=== PATIENT | male | born 1960 | race American Indian/Alaskan Native ===

== ENCOUNTER 2018-11-10 09:43 | Emergency (ER) | payer MEDICARE ==
[2018-11-10 09:54] VITALS: BP 142/90
--- NOTE | 2018-11-10 11:30 | Emergency Department Report ---
Addendum entered and electronically signed by BÁRBARA JENSEN FNP 11/10/18 16:39: Start Benzonatate 100 mg by mouth 3 times a day when necessary. Original Note: Minor Respiratory - HPI Chief Complaint: Upper Respiratory Infection Stated Complaint: COUGH/SOB/DIZZY Duration: 2 weeks Pain Location: Nose, Chest Severity: moderate Minor Respiratory: Yes Rhinorrhea, Yes Able to Tolerate Fluids, Yes Cough, Yes Sick Contacts, Yes Chest Pain, Yes Shortness of Breath, No Sore Throat, No Ear Pain, No Hemoptysis, No Fever Other History: This is a 58-year-old -English male who presents with cough, chest discomfort and shortness of breath for 2 weeks. Patient states he was seen by [facility] doctor who started him on Tessalon Perles which is not improving cough. He also complains of chills and hot flashes. He reports cough is productive with greenish mucus. [facility]. Patient states he had pneumonia Rach was seen at urgent care. He is concerned it possibly answers time. Patient denies fever, nausea or vomiting, myalgias, or abdominal pain. ED Review of Systems ROS: Stated complaint: COUGH/SOB/DIZZY Other details as noted in HPI Constitutional: chills. denies: fever ENT: congestion. denies: ear pain, throat pain, dental pain, hearing loss, epistaxis Respiratory: cough, shortness of breath, SOB with exertion. denies: wheezing Cardiovascular: chest pain (chest discomfort with cough). denies: palpitations Gastrointestinal: denies: abdominal pain, nausea, diarrhea Musculoskeletal: denies: myalgia Neurological: denies: headache, weakness, paresthesias Psychiatric: denies: anxiety, depression ED Past Medical Hx - Past Medical History Previous Medical History?: Yes Hx Hypertension: Yes Hx Heart Attack/AMI: Yes (x2) Hx Diabetes: Yes Hx Arthritis: Yes Hx Psychiatric Treatment: Yes (Poehler, schizophrenia, alcohol dependence) Hx Asthma: Yes Additional medical history: hernia - Surgical History Past Surgical History?: Yes Additional Surgical History: left hip replacement, bilateral knee replacement. left testicle removed. HERNIA REPAIR X 4. BILATERAL ROTATOR CUFF REPAIR, - Social History Smoking Status: Light Tobacco Smoker Substance Use Type: None - Medications Home Medications: Home Medications Medication Instructions Recorded Confirmed Last Taken Type ARIPiprazole [Abilify TAB] 15 mg PO DAILY 09/07/15 11/20/15 09/07/15 History Citalopram [celeXA] 40 mg PO QDAY 09/07/15 11/20/15 09/07/15 History Cyclobenzaprine [Flexeril] 10 mg PO TID PRN 09/07/15 11/20/15 09/07/[address] [Voltaren Dr] 75 mg PO QDAY 09/07/15 11/20/15 09/07/15 History Hydroxyzine HCl [hydrOXYzine] 50 mg PO QDAY 09/07/15 11/20/15 09/07/15 History Ipratropium (Nf) [Atrovent HFA 2 puff IH Q6HR PRN 09/07/15 11/20/15 09/07/15 History 17MCG/PUFF] Meloxicam 15 mg PO QDAY 09/07/15 11/20/15 09/07/15 History Mirtazapine [Remeron] 15 mg PO QDAY 09/07/15 11/20/15 09/07/15 History Ranitidine HCl [Zantac 150 MG TAB] 150 mg PO QDAY 09/07/15 11/20/15 09/07/15 History cloNIDine [Catapres] 0.2 mg PO BID 09/07/15 11/20/15 09/07/15 History metFORMIN [Glucophage] 500 mg PO BID 09/07/15 11/20/15 09/07/15 History methOCARBAMOL [Robaxin TAB] 500 mg PO QID 09/07/15 11/20/15 09/07/15 History traZODone [Desyrel] 150 mg PO QHS 09/07/15 11/20/15 09/07/15 History Aspirin [Aspirin BABY CHEW TAB] 81 mg PO QDAY 11/20/15 11/20/15 Unknown History Carisoprodol [Soma] 350 mg PO TID 11/20/15 11/20/15 Unknown History Esomeprazole Magnesium [NexIUM] 40 mg PO BID 11/20/15 11/20/15 Unknown History Ibuprofen [Motrin] 800 mg PO Q8HR PRN 11/20/15 11/20/15 Unknown History Nitroglycerin [Nitrostat] 0.4 mg SL Q5M PRN 11/20/15 11/20/15 Unknown History Oxycodone HCl/Acetaminophen 1 each PO Q6HR PRN 11/20/15 11/20/15 Unknown History [Percocet 10/325 mg] Promethazine [Phenergan TAB] 25 mg PO Q8HR PRN 11/20/15 11/20/15 Unknown History Quetiapine Fumarate [SEROquel XR] 400 mg PO QHS 11/20/15 11/20/15 Unknown History Zolpidem [Ambien] 10 mg PO BID 11/20/15 11/20/15 Unknown History diphenhydrAMINE [Benadryl CAP] 50 mg PO Q8HR PRN 11/20/15 11/20/15 Unknown History Lisinopril [Zestril TAB] 5 mg PO QDAY #30 tablet 11/22/15 Unknown Rx Azithromycin 250 mg PO DAILY #6 tablet 11/10/18 Unknown Rx predniSONE [Deltasone] 40 mg PO QDAY 4 Days #8 tab 11/10/18 Unknown Rx Minor Respiratory Exam - Exam General: Vital signs noted. No distress. Alert and acting appropriately. HEENT: Yes Pharyngeal Erythema (erythematous posterior pharynx, uvula midline), Yes Moist Mucous Membranes, Yes Rhinorrhea (turbinates are congested with clear discharge), No Pharyngeal Exudates, No Conjuctival Injection, No Frontal Tenderness, No Maxillary Tenderness Ear: Neither TM Bulge, Neither TM Erythema, Neither EAC Pain, Neither EAC Discharge Neck: Yes Supple, No Adenopathy Lungs: Yes Ronchi, No Good Air Exchange, No Wheezes, No Stridor, No Cough, No Labored Respirations, No Retractions, No Use of Accessory Muscles, No Other Abnormal Lung Sounds Heart: Yes Regular, No Murmur Abdomen: Yes Normal Bowel Sounds, No Tenderness, No Peritoneal Signs Skin: No Rash, No Edema Neurologic: Alert and oriented, no deficits. Musculoskeletal: Unremarkable. ED Course Vital Signs 11/10/18 09:47 Temperature 97.7 F Pulse Rate 110 H Respiratory 20 Rate Blood Pressure 142/90 O2 Sat by Pulse 98 Oximetry Vital Signs 11/10/18 11/10/18 09:47 13:33 Temperature 97.7 F Pulse Rate 110 H 92 H Respiratory 20 17 Rate Blood Pressure 142/90 O2 Sat by Pulse 98 99 Oximetry ED Medical Decision Making - Radiology Data Radiology results: report reviewed CHEST XRAY, 2 VIEWS: History: Cough. Findings: There is mild diffuse interstitial coarsening. The lungs are hyperexpanded but clear. No infiltrate, pleural fluid or pneumothorax is detected. The cardiac silhouette and pulmonary vasculature are within normal limits for technique. The bony thorax is unremarkable. IMPRESSION: Moderate to severe COPD. No acute cardiopulmonary process. - Medical Decision Making 58 y.o. female that presents with SOB, cough, and chest tightness for 2 weeks. History of arthritis, asthma, diabetes, hypertension, tobaco abuse, alcohol dependence, and schizophrenia. Patient examined by me and in no distress. Vitals stable. Chest x-ray obtained and dictated by radiologist. Moderate to severe COPD. No acute cardiopulmonary process. Given duoneb treatment and prednisone 60 mg po once. Start azithromycin and prednisone taper. Discharged home stable. Follow up with her primary care provider. Critical care attestation.: If time is entered above; I have spent that time in minutes in the direct care of this critically ill patient, excluding procedure time. ED Disposition Clinical Impression: Tobacco abuse, COPD exacerbation Disposition: DC-01 TO HOME OR SELFCARE Is pt being admited?: No Does the pt Need Aspirin: No Condition: Stable Instructions: Chronic Obstructive Pulmonary Disease (ED) Additional Instructions: It is important to use inhaler as prescribed. Complete full course of prednisone steroids and antibiotics as prescribed. Follow up with Primary Care Provider in 24-72 hours. Prescriptions: Azithromycin 250 mg PO DAILY #6 tablet predniSONE [Deltasone] 40 mg PO QDAY 4 Days #8 tab Referrals: [facility] [Outside] - 3-5 Days [facility] [Outside] - 3-5 Days [facility] [Outside] - 3-5 Days CARIDAD PULIDO MD [Staff Physician] - 3-5 Days Time of Disposition: 13:53
[2018-11-10] MEDS ORDERED: IBUPROFEN PO ONE (11:31)
--- NOTE | 2018-11-10 11:42 | XRay Report ---
CHEST XRAY, 2 VIEWS: History: Cough. Findings: There is mild diffuse interstitial coarsening. The lungs are hyperexpanded but clear. No infiltrate, pleural fluid or pneumothorax is detected. The cardiac silhouette and pulmonary vasculature are within normal limits for technique. The bony thorax is unremarkable. IMPRESSION: Moderate to severe COPD. No acute cardiopulmonary process.
[2018-11-10] MEDS ORDERED: DUONEB *Not for PRN Use IH ONE (12:28)
[2018-11-10] MEDS ORDERED: DELTASONE PO ONE (13:50)
== END 2018-11-10 14:15 | disposition home or self-care (01) ==
LOC: ED 09:43
DX: J44.1 Chronic obstructive pulmonary disease with (acute) exacerbation (principal); E11.9 Type 2 diabetes mellitus without complications; F20.9 Schizophrenia, unspecified; M19.90 Unspecified osteoarthritis, unspecified site; I11.0 Hypertensive heart disease with heart failure; F17.200 Nicotine dependence, unspecified, uncomplicated; Z96.642 Presence of left artificial hip joint; Z96.653 Presence of artificial knee joint, bilateral; Z79.82 Long term (current) use of aspirin; Z88.8 Allergy status to other drugs, medicaments and biological substances; Z88.5 Allergy status to narcotic agent
CPT/HCPCS: 71046; 93005; 93010; 94640; 99284; J7512

== ENCOUNTER 2019-01-30 13:50 | Emergency (ER) | payer MEDICARE | END 2019-01-30 16:09 | LOC: ED 13:50 | DX: M25.552 Pain in left hip (principal); Z53.21 Procedure and treatment not carried out due to patient leaving prior to being seen by health care provider ==

== ENCOUNTER 2019-02-06 18:15 | Emergency (ER) | payer MEDICARE ==
--- NOTE | 2019-02-06 18:24 | Emergency Department Report ---
Chief Complaint: Nausea/Vomiting/Diarrhea Stated Complaint: COUGH/VOMIT Time Seen by Provider: 02/06/19 18:21 - HPI History of Present Illness: CO SOB AND COUGH COPD AND ACTIVE SMOKER PMHL SIDED CP WORSE WITH COUGH DM COPD TOBACCO USE CAD NO FEVER TACHYPNEA IN TRIAGE TO EKG MSE COMPLETED MSE screening note: Focused history and physical exam performed. Due to findings the following was ordered: ED Disposition for MSE Condition: Stable
[2019-02-06 18:59] LABS: Basophils % (Auto) 0.7 % (0.0-1.8); Eosinophils # (Auto) 0.3 K/mm3 (0.0-0.4); Eosinophils % (Auto) 4.4 % (0.0-4.3); Hematocrit 35.5 % (35.5-45.6); Lymphocytes # (Auto) 2.3 K/mm3 (1.2-5.4); Lymphocytes % (Auto) 33.3 % (13.4-35.0); Mean Corpuscular HGB Conc 34 % (32-34); Mean Corpuscular Volume 100 fl (84-94); Monocytes # (Auto) 0.5 K/mm3 (0.0-0.8); Monocytes % (Auto) 7.5 % (0.0-7.3); Platelet Count 438 K/mm3 (140-440); Red Blood Count 3.54 M/mm3 (3.65-5.03); Red Cell Distribution Width 16.9 % (13.2-15.2)
[2019-02-06 19:08] LABS: Alanine Aminotransferase 11 units/L (7-56); Albumin 3.9 g/dL (3.9-5); BUN/Creatinine Ratio 16; Blood Urea Nitrogen 13 mg/dL (9-20); Calcium 8.5 mg/dL (8.4-10.2); Hemolysis Index 3
[2019-02-06 19:14] VITALS: BP 164/101
--- NOTE | 2019-02-06 21:23 | Emergency Department Report ---
ED General Adult HPI - General Chief complaint: Nausea/Vomiting/Diarrhea Stated complaint: COUGH/VOMIT Time Seen by Provider: 02/06/19 18:21 Source: patient Mode of arrival: Ambulatory Limitations: No Limitations - History of Present Illness Initial comments: 58-year-old -[place] male with a past medical history of COPD, schizophrenia, alcohol dependent comes in complaining of cough and vomiting since last night. He also complains of left-sided abdominal pain worse with coughing. Complains of dizziness and lightheadedness with coughing. -: days(s) (1) Location: abdomen Severity scale (0 -10): 5 Quality: aching Consistency: intermittent Worsens with: other (cough) Associated Symptoms: cough, nausea/vomiting, shortness of breath. denies: fever/chills - Related Data Home Medications Medication Instructions Recorded Confirmed Last Taken ARIPiprazole [Abilify TAB] 15 mg PO DAILY 09/07/15 11/20/15 09/07/15 Citalopram [celeXA] 40 mg PO QDAY 09/07/15 11/20/15 09/07/15 Cyclobenzaprine [Flexeril] 10 mg PO TID PRN 09/07/15 11/20/15 09/07/[address] [Voltaren Dr] 75 mg PO QDAY 09/07/15 11/20/15 09/07/15 Hydroxyzine HCl [hydrOXYzine] 50 mg PO QDAY 09/07/15 11/20/15 09/07/15 Ipratropium (Nf) [Atrovent HFA 2 puff IH Q6HR PRN 09/07/15 11/20/15 09/07/15 17MCG/PUFF] Meloxicam 15 mg PO QDAY 09/07/15 11/20/15 09/07/15 Mirtazapine [Remeron] 15 mg PO QDAY 09/07/15 11/20/15 09/07/15 Ranitidine HCl [Zantac 150 MG TAB] 150 mg PO QDAY 09/07/15 11/20/15 09/07/15 cloNIDine [Catapres] 0.2 mg PO BID 09/07/15 11/20/15 09/07/15 metFORMIN [Glucophage] 500 mg PO BID 09/07/15 11/20/15 09/07/15 methOCARBAMOL [Robaxin TAB] 500 mg PO QID 09/07/15 11/20/15 09/07/15 traZODone [Desyrel] 150 mg PO QHS 09/07/15 11/20/15 09/07/15 Aspirin [Aspirin BABY CHEW TAB] 81 mg PO QDAY 11/20/15 11/20/15 Unknown Carisoprodol [Soma] 350 mg PO TID 11/20/15 11/20/15 Unknown Esomeprazole Magnesium [NexIUM] 40 mg PO BID 11/20/15 11/20/15 Unknown Ibuprofen [Motrin] 800 mg PO Q8HR PRN 11/20/15 11/20/15 Unknown Nitroglycerin [Nitrostat] 0.4 mg SL Q5M PRN 11/20/15 11/20/15 Unknown Oxycodone HCl/Acetaminophen 1 each PO Q6HR PRN 11/20/15 11/20/15 Unknown [Percocet 10/325 mg] Promethazine [Phenergan TAB] 25 mg PO Q8HR PRN 11/20/15 11/20/15 Unknown Quetiapine Fumarate [SEROquel XR] 400 mg PO QHS 11/20/15 11/20/15 Unknown Zolpidem [Ambien] 10 mg PO BID 11/20/15 11/20/15 Unknown diphenhydrAMINE [Benadryl CAP] 50 mg PO Q8HR PRN 11/20/15 11/20/15 Unknown Previous Rx's Medication Instructions Recorded Last Taken Type Lisinopril [Zestril TAB] 5 mg PO QDAY #30 tablet 11/22/15 Unknown Rx Azithromycin 250 mg PO DAILY #6 tablet 11/10/18 Unknown Rx predniSONE [Deltasone] 40 mg PO QDAY 4 Days #8 tab 11/10/18 Unknown Rx Albuterol Sulfate [Ventolin HFA] 2 puff IH Q4H PRN #1 hfa.aer.ad 02/06/19 Unknown Rx Benzonatate [Tessalon Perles] 100 mg PO Q8HR PRN #30 capsule 02/06/19 Unknown Rx predniSONE [Prednisone] 10 mg PO QDAY #1 tab.ds.pk 02/06/19 Unknown Rx Allergies Allergy/AdvReac Type Severity Reaction Status Date / Time prochlorperazine edisylate Allergy Swelling Verified 02/06/19 19:14 [From Compazine] prochlorperazine maleate Allergy Swelling Verified 02/06/19 19:14 [From Compazine] tramadol Allergy Swelling Verified 02/06/19 19:14 ED Review of Systems ROS: Stated complaint: COUGH/VOMIT Other details as noted in HPI Comment: All other systems reviewed and negative Constitutional: denies: chills, fever Eyes: denies: eye pain, eye discharge, vision change ENT: denies: ear pain, throat pain Respiratory: cough, shortness of breath Cardiovascular: chest pain. denies: palpitations Endocrine: no symptoms reported Gastrointestinal: vomiting Genitourinary: denies: urgency, dysuria Musculoskeletal: denies: back pain, joint swelling, arthralgia Skin: denies: rash, lesions Neurological: denies: headache, weakness, paresthesias Psychiatric: denies: anxiety, depression Hematological/Lymphatic: denies: easy bleeding, easy bruising ED Past Medical Hx - Past Medical History Previous Medical History?: Yes Hx Hypertension: Yes Hx Heart Attack/AMI: Yes (x2) Hx Diabetes: Yes Hx Arthritis: Yes Hx Psychiatric Treatment: Yes (Poehler, schizophrenia, alcohol dependence) Hx Asthma: Yes Additional medical history: hernia - Surgical History Past Surgical History?: Yes Additional Surgical History: left hip replacement, bilateral knee replacement. left testicle removed. HERNIA REPAIR X 4. BILATERAL ROTATOR CUFF REPAIR, - Social History Smoking Status: Current Every Day Smoker - Medications Home Medications: Home Medications Medication Instructions Recorded Confirmed Last Taken Type ARIPiprazole [Abilify TAB] 15 mg PO DAILY 09/07/15 11/20/15 09/07/15 History Citalopram [celeXA] 40 mg PO QDAY 09/07/15 11/20/15 09/07/15 History Cyclobenzaprine [Flexeril] 10 mg PO TID PRN 09/07/15 11/20/15 09/07/[address] [Voltaren Dr] 75 mg PO QDAY 09/07/15 11/20/15 09/07/15 History Hydroxyzine HCl [hydrOXYzine] 50 mg PO QDAY 09/07/15 11/20/15 09/07/15 History Ipratropium (Nf) [Atrovent HFA 2 puff IH Q6HR PRN 09/07/15 11/20/15 09/07/15 History 17MCG/PUFF] Meloxicam 15 mg PO QDAY 09/07/15 11/20/15 09/07/15 History Mirtazapine [Remeron] 15 mg PO QDAY 09/07/15 11/20/15 09/07/15 History Ranitidine HCl [Zantac 150 MG TAB] 150 mg PO QDAY 09/07/15 11/20/15 09/07/15 History cloNIDine [Catapres] 0.2 mg PO BID 09/07/15 11/20/15 09/07/15 History metFORMIN [Glucophage] 500 mg PO BID 09/07/15 11/20/15 09/07/15 History methOCARBAMOL [Robaxin TAB] 500 mg PO QID 09/07/15 11/20/15 09/07/15 History traZODone [Desyrel] 150 mg PO QHS 09/07/15 11/20/15 09/07/15 History Aspirin [Aspirin BABY CHEW TAB] 81 mg PO QDAY 11/20/15 11/20/15 Unknown History Carisoprodol [Soma] 350 mg PO TID 11/20/15 11/20/15 Unknown History Esomeprazole Magnesium [NexIUM] 40 mg PO BID 11/20/15 11/20/15 Unknown History Ibuprofen [Motrin] 800 mg PO Q8HR PRN 11/20/15 11/20/15 Unknown History Nitroglycerin [Nitrostat] 0.4 mg SL Q5M PRN 11/20/15 11/20/15 Unknown History Oxycodone HCl/Acetaminophen 1 each PO Q6HR PRN 11/20/15 11/20/15 Unknown History [Percocet 10/325 mg] Promethazine [Phenergan TAB] 25 mg PO Q8HR PRN 11/20/15 11/20/15 Unknown History Quetiapine Fumarate [SEROquel XR] 400 mg PO QHS 11/20/15 11/20/15 Unknown History Zolpidem [Ambien] 10 mg PO BID 11/20/15 11/20/15 Unknown History diphenhydrAMINE [Benadryl CAP] 50 mg PO Q8HR PRN 11/20/15 11/20/15 Unknown H istory Lisinopril [Zestril TAB] 5 mg PO QDAY #30 tablet 11/22/15 Unknown Rx Azithromycin 250 mg PO DAILY #6 tablet 11/10/18 Unknown Rx predniSONE [Deltasone] 40 mg PO QDAY 4 Days #8 tab 11/10/18 Unknown Rx Albuterol Sulfate [Ventolin HFA] 2 puff IH Q4H PRN #1 hfa.aer.ad 02/06/19 Unknown Rx Benzonatate [Tessalon Perles] 100 mg PO Q8HR PRN #30 capsule 02/06/19 Unknown Rx predniSONE [Prednisone] 10 mg PO QDAY #1 tab.ds.pk 02/06/19 Unknown Rx ED Physical Exam - General Limitations: No Limitations General appearance: alert, in no apparent distress - Head Head exam: Present: atraumatic, normocephalic - Eye Eye exam: Present: normal appearance, EOMI - ENT ENT exam: Present: mucous membranes moist - Neck Neck exam: Present: normal inspection - Respiratory Respiratory exam: Present: normal lung sounds bilaterally. Absent: respiratory distress - Cardiovascular Cardiovascular Exam: Present: regular rate, normal rhythm. Absent: systolic murmur, diastolic murmur, rubs, gallop - GI/Abdominal GI/Abdominal exam: Present: soft, normal bowel sounds. Absent: distended, tenderness - Extremities Exam Extremities exam: Present: normal inspection, full ROM - Back Exam Back exam: Present: normal inspection - Neurological Exam Neurological exam: Present: alert, oriented X3, normal gait - Psychiatric Psychiatric exam: Present: normal affect, normal mood - Skin Skin exam: Present: warm, dry, intact, normal color. Absent: rash ED Course Vital Signs 02/06/19 19:13 Temperature 97.4 F L Pulse Rate 99 H Respiratory 20 Rate Blood Pressure 164/101 O2 Sat by Pulse 100 Oximetry ED Medical Decision Making - Lab Data Result diagrams: 02/06/19 18:35 02/06/19 18:35 - Radiology Data Radiology results: report reviewed Ordering Physician: DANYEL TRIPLETT Date of Service: 02/06/19 Procedure(s): XR chest routine 2V Accession Number(s): [id number] cc: DANYEL TRIPLETT Fluoro Time In Minutes: PROCEDURE: XR CHEST ROUTINE 2V TECHNIQUE: PA and lateral chest radiographs were obtained. HISTORY: Dyspnea COMPARISONS: None. FINDINGS: Heart: Normal. Mediastinum/Vessels: Normal. Lungs/Pleural space: There is moderate COPD and mild fibrosis. There are no acute infiltrates. There is no pleural effusion or pneumothorax.. Bony thorax: No acute osseous abnormality. IMPRESSION: Normal examination. This document is electronically signed by Nancy Villa MD., February 06 2019 09:33:47 PM ET Transcribed By: CO Dictated By: NANCY VILLA MD Electronically Authenticated By: NANCY VILLA MD Signed Date/Time: 02/06/192134 DD/ 39 TD/TT: 02/06/191839 Critical care attestation.: If time is entered above; I have spent that time in minutes in the direct care of this critically ill patient, excluding procedure time. ED Disposition Clinical Impression: Cough Disposition: DC-01 TO HOME OR SELFCARE Is pt being admited?: No Does the pt Need Aspirin: No Condition: Stable Instructions: Chronic Cough (ED) Additional Instructions: Please take medication as prescribed. Follow up with her primary care provider this symptoms persist or gets worse. Prescriptions: predniSONE [Prednisone] 10 mg PO QDAY #1 tab.ds.pk Benzonatate [Tessalon Perles] 100 mg PO Q8HR PRN #30 capsule PRN Reason: Cough Albuterol Sulfate [Ventolin HFA] 2 puff IH Q4H PRN #1 hfa.aer.ad PRN Reason: Shortness Of Breath Referrals: YAZMIN YATES MD [Primary Care Provider] - 3-5 Days
[2019-02-06] MEDS ORDERED: TESSALON PERLES PO ONE (21:34)
--- NOTE | 2019-02-06 21:35 | XRay Report ---
PROCEDURE: XR CHEST ROUTINE 2V TECHNIQUE: PA and lateral chest radiographs were obtained. HISTORY: Dyspnea COMPARISONS: None. FINDINGS: Heart: Normal. Mediastinum/Vessels: Normal. Lungs/Pleural space: There is moderate COPD and mild fibrosis. There are no acute infiltrates. There is no pleural effusion or pneumothorax.. Bony thorax: No acute osseous abnormality. IMPRESSION: Normal examination. This document is electronically signed by Smooth Mcgowan MD., February 06 2019 09:33:47 PM ET
[2019-02-06] MEDS ORDERED: DELTASONE PO ONE (21:56)
== END 2019-02-06 22:58 | disposition home or self-care (01) ==
LOC: ED 18:15
DX: R05 Cough (principal); R11.10 Vomiting, unspecified; R10.9 Unspecified abdominal pain; R42 Dizziness and giddiness; I10 Essential (primary) hypertension; I25.2 Old myocardial infarction; E11.9 Type 2 diabetes mellitus without complications; J44.9 Chronic obstructive pulmonary disease, unspecified; M19.90 Unspecified osteoarthritis, unspecified site; F17.200 Nicotine dependence, unspecified, uncomplicated; F20.9 Schizophrenia, unspecified; Z88.6 Allergy status to analgesic agent; Z88.8 Allergy status to other drugs, medicaments and biological substances; Z79.84 Long term (current) use of oral hypoglycemic drugs
CPT/HCPCS: 36415; 71046; 80053; 84484; 85025; 93005; 93010; 99284; J7512

== ENCOUNTER 2019-02-15 17:39 | Emergency (ER) | payer MEDICARE ==
--- NOTE | 2019-02-15 18:33 | Emergency Department Report ---
Chief Complaint: Upper Respiratory Infection Stated Complaint: FLU LIKE SYMPTOMS Time Seen by Provider: 02/15/19 18:30 - HPI History of Present Illness: pt presents for cough that began 2 weeks having emesis, states that "zofran is not working" states only "phenergan works" chest discomfort with coughing hx of COPD subjective fever (+) rhinorrhea, congestion pt has a PCP and has not seen then (+) smoker MSE screening note: Focused history performed. Due to findings the following was ordered: CXR, labs ED Disposition for MSE Condition: Stable
[2019-02-15 19:10] LABS: Basophils # (Auto) 0.1 K/mm3 (0.0-0.1); Basophils % (Auto) 0.7 % (0.0-1.8); Eosinophils # (Auto) 0.3 K/mm3 (0.0-0.4); Eosinophils % (Auto) 2.9 % (0.0-4.3); Hematocrit 35.1 % (35.5-45.6); Hemoglobin 12.1 gm/dl (11.8-15.2); Lymphocytes # (Auto) 2.5 K/mm3 (1.2-5.4); Lymphocytes % (Auto) 26.1 % (13.4-35.0); Mean Corpuscular HGB Conc 34 % (32-34); Mean Corpuscular Volume 98 fl (84-94); Monocytes # (Auto) 0.7 K/mm3 (0.0-0.8); Monocytes % (Auto) 7.4 % (0.0-7.3); Platelet Count 362 K/mm3 (140-440); Red Blood Count 3.58 M/mm3 (3.65-5.03); Red Cell Distribution Width 17.1 % (13.2-15.2)
--- NOTE | 2019-02-15 19:31 | XRay Report ---
PROCEDURE: XR CHEST ROUTINE 2V TECHNIQUE: Chest 2 views HISTORY: cough COMPARISONS: Comparison is February 06, 2019 FINDINGS: Cardiac and mediastinal contours are unremarkable. Lungs are hyperinflated with flattening of the paulo phragm. Mild scarring noted at the left base. No confluent pulmonary infiltrates are identified. No p leural fluid collection seen. IMPRESSION: Findings suggestive of underlying COPD No acute change identified. This document is electronically signed by Andry Waller MD., February 15 2019 07:29:58 PM ET
[2019-02-15 19:36] LABS: BUN/Creatinine Ratio 18; Blood Urea Nitrogen 14 mg/dL (9-20); Calcium 8.7 mg/dL (8.4-10.2); Hemolysis Index 4
--- NOTE | 2019-02-15 19:51 | Emergency Department Report ---
Minor Respiratory - HPI Chief Complaint: Upper Respiratory Infection Stated Complaint: FLU LIKE SYMPTOMS Time Seen by Provider: 02/15/19 18:30 Duration: 2 weeks Minor Respiratory: Yes Rhinorrhea, Yes Cough, No Sore Throat, No Able to Tolerate Fluids, No Ear Pain, No Sick Contacts, No Hemoptysis, No Chest Pain, No Shortness of Breath Other History: 58-year-old -[place] male with a past medical history of COPD, schizophrenia, alcohol dependent comes in complaining of cough and vomiting since 02/06/19. Patient reports that he is coughing and vomiting which is is chronic. Patient reports that the Zofran does not help but the promethazine does. Patient denies any fever chills. Patient reports it is completed his Tessalon Perles and prednisone but still is having coughing at night. ED Review of Systems ROS: Stated complaint: FLU LIKE SYMPTOMS Other details as noted in HPI Comment: All other systems reviewed and negative Constitutional: no symptoms reported Eyes: denies: eye pain, eye discharge, vision change ENT: denies: ear pain, throat pain Respiratory: cough Cardiovascular: denies: chest pain, palpitations Endocrine: no symptoms reported Gastrointestinal: vomiting Genitourinary: denies: urgency, dysuria Musculoskeletal: denies: back pain, joint swelling, arthralgia Skin: denies: rash, lesions Neurological: denies: headache, weakness, paresthesias Psychiatric: denies: anxiety, depression Hematological/Lymphatic: denies: easy bleeding, easy bruising ED Past Medical Hx - Past Medical History Hx Hypertension: Yes Hx Heart Attack/AMI: Yes (x2) Hx Diabetes: Yes Hx Arthritis: Yes Hx Psychiatric Treatment: Yes (Poehler, schizophrenia, alcohol dependence) Hx Asthma: Yes Additional medical history: hernia - Surgical History Additional Surgical History: left hip replacement, bilateral knee replacement. left testicle removed. HERNIA REPAIR X 4. BILATERAL ROTATOR CUFF REPAIR, - Social History Smoking Status: Current Every Day Smoker Substance Use Type: None - Medications Home Medications: Home Medications Medication Instructions Recorded Confirmed Last Taken Type ARIPiprazole [Abilify TAB] 15 mg PO DAILY 09/07/15 11/20/15 09/07/15 History Citalopram [celeXA] 40 mg PO QDAY 09/07/15 11/20/15 09/07/15 History Cyclobenzaprine [Flexeril] 10 mg PO TID PRN 09/07/15 11/20/15 09/07/[address] [Voltaren Dr] 75 mg PO QDAY 09/07/15 11/20/15 09/07/15 History Hydroxyzine HCl [hydrOXYzine] 50 mg PO QDAY 09/07/15 11/20/15 09/07/15 History Ipratropium (Nf) [Atrovent HFA 2 puff IH Q6HR PRN 09/07/15 11/20/15 09/07/15 History 17MCG/PUFF] Meloxicam 15 mg PO QDAY 09/07/15 11/20/15 09/07/15 History Mirtazapine [Remeron] 15 mg PO QDAY 09/07/15 11/20/15 09/07/15 History Ranitidine HCl [Zantac 150 MG TAB] 150 mg PO QDAY 09/07/15 11/20/15 09/07/15 History cloNIDine [Catapres] 0.2 mg PO BID 09/07/15 11/20/15 09/07/15 History metFORMIN [Glucophage] 500 mg PO BID 09/07/15 11/20/15 09/07/15 History methOCARBAMOL [Robaxin TAB] 500 mg PO QID 09/07/15 11/20/15 09/07/15 History traZODone [Desyrel] 150 mg PO QHS 09/07/15 11/20/15 09/07/15 History Aspirin [Aspirin BABY CHEW TAB] 81 mg PO QDAY 11/20/15 11/20/15 Unknown History Carisoprodol [Soma] 350 mg PO TID 11/20/15 11/20/15 Unknown History Esomeprazole Magnesium [NexIUM] 40 mg PO BID 11/20/15 11/20/15 Unknown History Ibuprofen [Motrin] 800 mg PO Q8HR PRN 11/20/15 11/20/15 Unknown History Nitroglycerin [Nitrostat] 0.4 mg SL Q5M PRN 11/20/15 11/20/15 Unknown History Oxycodone HCl/Acetaminophen 1 each PO Q6HR PRN 11/20/15 11/20/15 Unknown History [Percocet 10/325 mg] Promethazine [Phenergan TAB] 25 mg PO Q8HR PRN 11/20/15 11/20/15 Unknown History Quetiapine Fumarate [SEROquel XR] 400 mg PO QHS 11/20/15 11/20/15 Unknown History Zolpidem [Ambien] 10 mg PO BID 11/20/15 11/20/15 Unknown History diphenhydrAMINE [Benadryl CAP] 50 mg PO Q8HR PRN 11/20/15 11/20/15 Unknown History Lisinopril [Zestril TAB] 5 mg PO QDAY #30 tablet 11/22/15 Unknown Rx Azithromycin 250 mg PO DAILY #6 tablet 11/10/18 Unknown Rx predniSONE [Deltasone] 40 mg PO QDAY 4 Days #8 tab 11/10/18 Unknown Rx Albuterol Sulfate [Ventolin HFA] 2 puff IH Q4H PRN #1 hfa.aer.ad 02/06/19 Unknown Rx Benzonatate [Tessalon Perles] 100 mg PO Q8HR PRN #30 capsule 02/06/19 Unknown Rx predniSONE [Prednisone] 10 mg PO QDAY #1 tab.ds.pk 02/06/19 Unknown Rx Budesonide/Formoterol Fumarate 10.2 gm IH BID #1 hfa.aer.ad 02/15/19 Unknown Rx [Symbicort 80-4.5 Mcg Inhaler] Cetirizine HCl [ZyrTEC] 10 mg PO QDAY #30 capsule 02/15/19 Unknown Rx Ondansetron [Zofran Odt] 4 mg PO Q8HR #12 tab.rapdis 02/15/19 Unknown Rx Minor Respiratory Exam - Exam General: Vital signs noted. No distress. Alert and acting appropriately. HEENT: Yes Moist Mucous Membranes, No Pharyngeal Erythema, No Pharyngeal Exudates, No Rhinorrhea, No Conjuctival Injection, No Frontal Tenderness, No Maxillary Tenderness Ear: Neither TM Bulge, Neither TM Erythema, Neither EAC Pain, Neither EAC Discharge Neck: Yes Supple, No Adenopathy Lungs: Yes Good Air Exchange, No Wheezes, No Ronchi, No Stridor, No Cough, No Labored Respirations, No Retractions, No Use of Accessory Muscles, No Other Abnormal Lung Sounds Heart: Yes Regular, No Murmur Abdomen: Yes Normal Bowel Sounds, No Tenderness, No Peritoneal Signs Skin: No Rash, No Edema Neurologic: Alert and oriented, no deficits. Musculoskeletal: Unremarkable. ED Course Vital Signs 02/15/19 18:30 Temperature 97.6 F Pulse Rate 76 Respiratory 20 Rate Blood Pressure 167/106 O2 Sat by Pulse 99 Oximetry ED Medical Decision Making - Lab Data Result diagrams: 02/15/19 18:58 02/15/19 18:58 - Radiology Data Radiology results: report reviewed Patient: HUAN CAMACHO MR#: [id number] : 1960 Acct:[id number] Age/Sex: 58 / M ADM Date: 02/15/19 Loc: ED Attending Dr: Ordering Physician: EVER GARCIA Date of Service: 02/15/19 Procedure(s): XR chest routine 2V Accession Number(s): [id number] cc: EVER GARCIA Fluoro Time In Minutes: PROCEDURE: XR CHEST ROUTINE 2V TECHNIQUE: Chest 2 views HISTORY: cough COMPARISONS: Comparison is February 06, 2019 FINDINGS: Cardiac and mediastinal contours are unremarkable. Lungs are hyperinflated with flattening of the diaphragm. Mild scarring noted at the left base. No confluent pulmonary infiltrates are identified. No pleural fluid collection seen. IMPRESSION: Findings suggestive of underlying COPD No acute change identified. This document is electronically signed by Andry Tai MD., February 15 2019 07:29:58 PM ET Transcribed By: KAMAR Dictated By: NOBLE TAI MD Electronically Authenticated By: NOBLE TAI MD Signed Date/Time: 02/15/191930 DD/ 32 TD/TT: 02/15/191909 Critical care attestation.: If time is entered above; I have spent that time in minutes in the direct care of this critically ill patient, excluding procedure time. ED Disposition Clinical Impression: COPD (chronic obstructive pulmonary disease) Qualifiers: COPD type: unspecified COPD Qualified Code(s): J44.9 - Chronic obstructive pulmonary disease, unspecified Disposition: DC-01 TO HOME OR SELFCARE Is pt being admited?: No Does the pt Need Aspirin: No Condition: Stable Instructions: Chronic Obstructive Pulmonary Disease (ED) Prescriptions: Budesonide/Formoterol Fumarate [Symbicort 80-4.5 Mcg Inhaler] 10.2 gm IH BID #1 hfa.aer.ad Ondansetron [Zofran Odt] 4 mg PO Q8HR #12 tab.rapdis Cetirizine HCl [ZyrTEC] 10 mg PO QDAY #30 capsule [facility] [Primary Care Provider] - 3-5 Days BOBBY HOPKINS MD [Staff Physician] - 3-5 Days ADELIA SPRAGUE MD [Staff Physician] - 3-5 Days
[2019-02-16 19:31] VITALS: BP 167/106
== END 2019-02-15 20:23 | disposition home or self-care (01) ==
LOC: ED 17:39
DX: J44.9 Chronic obstructive pulmonary disease, unspecified (principal); I10 Essential (primary) hypertension; I25.2 Old myocardial infarction; E11.9 Type 2 diabetes mellitus without complications; M19.90 Unspecified osteoarthritis, unspecified site; F20.9 Schizophrenia, unspecified; F17.200 Nicotine dependence, unspecified, uncomplicated; Z79.899 Other long term (current) drug therapy; Z88.6 Allergy status to analgesic agent; Z88.8 Allergy status to other drugs, medicaments and biological substances
CPT/HCPCS: 36415; 71046; 80048; 85025; 99283

== ENCOUNTER 2020-01-01 07:02 | Emergency (ER) | payer MEDICARE ==
[2020-01-01 07:16] VITALS: BP 120/81
--- NOTE | 2020-01-01 07:38 | XRay Report ---
Right wrist, 3 views INDICATION: Pain following recent injury FINDINGS: The joint space is maintained. There is no fracture or dislocation. No spurring or arthriti c change. No bone lesion or periostitis. No significant abnormality. IMPRESSION: Negative study Signer Name: Jeovany Sharif MD Signed: 01/01/2020 7:33 AM Workstation Name: [id number]
[2020-01-01] MEDS ORDERED: IBUPROFEN 800 MG TAB PO ONE (09:24)
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
== END 2020-01-01 10:00 | disposition home or self-care (01) ==
LOC: ED 07:02
DX: S63.501A Unspecified sprain of right wrist, initial encounter (principal); I10 Essential (primary) hypertension; I25.2 Old myocardial infarction; E11.9 Type 2 diabetes mellitus without complications; M19.90 Unspecified osteoarthritis, unspecified site; F20.9 Schizophrenia, unspecified; F17.200 Nicotine dependence, unspecified, uncomplicated; J45.909 Unspecified asthma, uncomplicated; Z88.6 Allergy status to analgesic agent; Z88.8 Allergy status to other drugs, medicaments and biological substances; Z96.653 Presence of artificial knee joint, bilateral; Z96.642 Presence of left artificial hip joint; Z98.890 Other specified postprocedural states; Z79.899 Other long term (current) drug therapy; Z79.82 Long term (current) use of aspirin; Z79.84 Long term (current) use of oral hypoglycemic drugs; X58.XXXA Exposure to other specified factors, initial encounter; Y93.89 Activity, other specified; Y92.89 Other specified places as the place of occurrence of the external cause; Y99.8 Other external cause status
CPT/HCPCS: 99283

== ENCOUNTER 2020-01-12 18:18 | Emergency (ER) | payer MEDICAID, MEDICARE ==
--- NOTE | 2020-01-12 20:01 | Emergency Department Report ---
Blank Doc - Documentation Documentation: 59-year-old male that presents with a fall with left hip pain and lower back p ain. This initial assessment/diagnostic orders/clinical plan/treatment(s) is/are subject to change based on patient's health status, clinical progression and re- assessment by fellow clinical providers in the ED. Further treatment and workup at subsequent clinical providers discretion. Patient/guardians urged not to elope from the ED as their condition may be serious if not clinically assessed a nd managed. Initial orders include: 1- Patient sent to [facility] for further evaluation and treatment 2- xrays
[2020-01-12] MEDS ORDERED: ONDANSETRON 4 MG ODT TAB PO ONE (20:36)
[2020-01-12] MEDS ORDERED: HYDROcodone/ACETAMINOPHEN 7.5-325MG TAB PO ONE (20:36)
--- NOTE | 2020-01-12 21:39 | XRay Report ---
LUMBOSACRAL SPINE 3 VIEWS INDICATION / CLINICAL INFORMATION: Fall with low back pain. COMPARISON: None available. FINDINGS: BONES / JOINT(S): No acute fracture or subluxation. There is very minimal spondylosis. SOFT TISSUES: There are atherosclerotic calcifications involving the aorta without aneurysm. ADDITIONAL FINDINGS: There is a left hip prosthesis. IMPRESSION: No acute abnormality. Signer Name: Aquilino Garcia MD Signed: 01/12/2020 9:34 PM Workstation Name: [id number]
--- NOTE | 2020-01-12 21:42 | XRay Report ---
LEFT HIP 3 VIEWS INDICATION / CLINICAL INFORMATION: Fall with left hip pain. COMPARISON: None available. FINDINGS: BONES / JOINT(S): There is a left hip prosthesis. There are [id number] degenerative changes inv olving the right hip. There is mild lower lumbar spondylosis. I see no evidence of fracture or disloc ation. SOFT TISSUES: There is mild heterotopic ossification along the lateral margin of the left hip. ADDITIONAL FINDINGS: None. IMPRESSION: No acute abnormality. Signer Name: Aquilino Garcia MD Signed: 01/12/2020 9:37 PM Workstation Name: [id number]
--- NOTE | 2020-01-12 21:52 | Emergency Department Report ---
ED Fall HPI - General Chief Complaint: Fall Stated Complaint: HIP REPLACEMENT GAVE OUT/FELL DOWNSTAIRS Time Seen by Provider: 01/12/20 20:00 Source: patient Mode of arrival: Ambulatory - History of Present Illness Initial Comments: Patient is a 59-year-old -Martiniquais male with a history of dty-ujfbkao-becyiwisq diabetes, hypertension and chronic osteoarthritis and status post left hip total knee replacement 8 years ago and who presents to the ED with complaint of acute exacerbation of his chronic left hip pain and low back pain after he slipped and fell down 2 stairs at home about 2 hours ago. Patient denies head or neck injuries, numbness and tingling or weakness of lower extremities bilaterally, dizziness, saddle paresthesia, urinary or bowel incontinence, loss of consciousness, nausea, vomiting, headache, syncope or seizures. Patient states that the pain is worse with any active range of motion of left hip and lower back. Patient states that he took ibuprofen 800 mg tablet prior to arrival in the ED with no relief. MD Complaint: fall, other (left hip and lower back pain) -: Sudden, hour(s) (4) Fall From: standing, down stairs (#) When Fall Occurred: 1-3 hours PIPE [employer] W[employer] Fall Witnessed: yes, by family Place Fall Occurred: home Loss of Consciousness: none Prolonged Down Time?: no Symptoms Prior to Fall: none Location: back (lower back), pelvis (left hip) Severity: severe Severity scale (0 -10): 7 Quality: sharp, aching Context: tripped/slipped, history of frequent falls Associated Symptoms: denies. denies: headache, neck pain, numbness, weakness, chest paint, shortness of breath, abdominal pain, unable to walk, lightheaded, vertigo, confusion - Related Data Home Medications Medication Instructions Recorded Confirmed Last Taken ARIPiprazole [Abilify TAB] 15 mg PO DAILY 09/07/15 11/20/15 09/07/15 Citalopram [celeXA] 40 mg PO QDAY 09/07/15 11/20/15 09/07/[address] [Voltaren Dr] 75 mg PO QDAY 09/07/15 11/20/15 09/07/15 Hydroxyzine HCl [hydrOXYzine] 50 mg PO QDAY 09/07/15 11/20/15 09/07/15 Ipratropium (Nf) [Atrovent HFA 2 puff IH Q6HR PRN 09/07/15 11/20/15 09/07/15 17MCG/PUFF] Meloxicam 15 mg PO QDAY 09/07/15 11/20/15 09/07/15 Mirtazapine [Remeron] 15 mg PO QDAY 09/07/15 11/20/15 09/07/15 cloNIDine [Catapres] 0.2 mg PO BID 09/07/15 11/20/15 09/07/15 metFORMIN [Glucophage] 500 mg PO BID 09/07/15 11/20/15 09/07/15 methOCARBAMOL [Robaxin TAB] 500 mg PO QID 09/07/15 11/20/15 09/07/15 raNITIdine HCl [Zantac] 150 mg PO QDAY 09/07/15 11/20/15 09/07/15 traZODone [Desyrel] 150 mg PO QHS 09/07/15 11/20/15 09/07/15 Aspirin [Aspirin BABY CHEW TAB] 81 mg PO QDAY 11/20/15 11/20/15 Unknown Esomeprazole Magnesium [NexIUM] 40 mg PO BID 11/20/15 11/20/15 Unknown Ibuprofen [Motrin] 800 mg PO Q8HR PRN 11/20/15 11/20/15 Unknown Nitroglycerin [Nitrostat] 0.4 mg SL Q5M PRN 11/20/15 11/20/15 Unknown Oxycodone HCl/Acetaminophen 1 each PO Q6HR PRN 11/20/15 11/20/15 Unknown [Percocet 10/325 mg] Promethazine [Phenergan TAB] 25 mg PO Q8HR PRN 11/20/15 11/20/15 Unknown Quetiapine Fumarate [SEROquel XR] 400 mg PO QHS 11/20/15 11/20/15 Unknown Zolpidem [Ambien] 10 mg PO BID 11/20/15 11/20/15 Unknown carisoprodoL [Soma] 350 mg PO TID 11/20/15 11/20/15 Unknown diphenhydrAMINE [Benadryl CAP] 50 mg PO Q8HR PRN 11/20/15 11/20/15 Unknown Previous Rx's Medication Instructions Recorded Last Taken Type lisinopriL [Zestril TAB] 5 mg PO QDAY #30 tablet 11/22/15 Unknown Rx Azithromycin 250 mg PO DAILY #6 tablet 11/10/18 Unknown Rx predniSONE [Deltasone] 40 mg PO QDAY 4 Days #8 tab 11/10/18 Unknown Rx Albuterol Sulfate [Ventolin HFA] 2 puff IH Q4H PRN #1 hfa.aer.ad 02/06/19 Unknown Rx Benzonatate [Tessalon Perles] 100 mg PO Q8HR PRN #30 capsule 02/06/19 Unknown Rx predniSONE [predniSONE 10mg (21 10 mg PO QDAY #1 tab.ds.pk 02/06/19 Unknown Rx tabs)] Budesonide/Formoterol Fumarate 10.2 gm IH BID #1 hfa.aer.ad 02/15/19 Unknown Rx [Symbicort 80-4.5 Mcg Inhaler] Cetirizine HCl [ZyrTEC] 10 mg PO QDAY #30 capsule 02/15/19 Unknown Rx Ondansetron [Zofran Odt] 4 mg PO Q8HR #12 tab.rapdis 02/15/19 Unknown Rx Ibuprofen [Motrin 800 MG tab] 800 mg PO Q8HR PRN #14 tablet 01/01/20 Unknown Rx Cyclobenzaprine [Flexeril 10 MG 10 mg PO Q8H PRN #21 01/12/20 Unknown Rx TAB] Ibuprofen [Motrin] 600 mg PO Q8H PRN #24 tablet 01/12/20 Unknown Rx Allergies Allergy/AdvReac Type Severity Reaction Status Date / Time prochlorperazine edisylate Allergy Swelling Verified 02/06/19 19:14 [From Compazine] prochlorperazine maleate Allergy Swelling Verified 02/06/19 19:14 [From Compazine] tramadol Allergy Swelling Verified 02/06/19 19:14 ED Review of Systems ROS: Stated complaint: HIP REPLACEMENT GAVE OUT/FELL DOWNSTAIRS Other details as noted in HPI Constitutional: denies: chills, fever Eyes: denies: eye pain, eye discharge, vision change ENT: denies: ear pain, throat pain Respiratory: denies: cough, shortness of breath, wheezing Cardiovascular: denies: chest pain, palpitations Endocrine: no symptoms reported Gastrointestinal: denies: abdominal pain, nausea, diarrhea Genitourinary: denies: urgency, dysuria Musculoskeletal: back pain (lower), arthralgia (Left hip pain). denies: joint swelling Skin: denies: rash, lesions Neurological: denies: headache, weakness, paresthesias Psychiatric: denies: anxiety, depression Hematological/Lymphatic: denies: easy bleeding, easy bruising ED Past Medical Hx - Past Medical History Previous Medical History?: Yes Hx Hypertension: Yes Hx Heart Attack/AMI: Yes (x2) Hx Diabetes: Yes Hx Arthritis: Yes Hx Psychiatric Treatment: Yes ([place], schizophrenia, alcohol dependence) Hx Asthma: Yes Additional medical history: hernia - Surgical History Past Surgical History?: Yes Additional Surgical History: left hip replacement, bilateral knee replacement. left testicle removed. HERNIA REPAIR X 4. BILATERAL ROTATOR CUFF REPAIR, - Social History Smoking Status: Current Every Day Smoker Substance Use Type: None - Medications Home Medications: Home Medications Medication Instructions Recorded Confirmed Last Taken Type ARIPiprazole [Abilify TAB] 15 mg PO DAILY 09/07/15 11/20/15 09/07/15 History Citalopram [celeXA] 40 mg PO QDAY 09/07/15 11/20/15 09/07/[address] [Voltaren Dr] 75 mg PO QDAY 09/07/15 11/20/15 09/07/15 History Hydroxyzine HCl [hydrOXYzine] 50 mg PO QDAY 09/07/15 11/20/15 09/07/15 History Ipratropium (Nf) [Atrovent HFA 2 puff IH Q6HR PRN 09/07/15 11/20/15 09/07/15 History 17MCG/PUFF] Meloxicam 15 mg PO QDAY 09/07/15 11/20/15 09/07/15 History Mirtazapine [Remeron] 15 mg PO QDAY 09/07/15 11/20/15 09/07/15 History cloNIDine [Catapres] 0.2 mg PO BID 09/07/15 11/20/15 09/07/15 History metFORMIN [Glucophage] 500 mg PO BID 09/07/15 11/20/15 09/07/15 History methOCARBAMOL [Robaxin TAB] 500 mg PO QID 09/07/15 11/20/1509/07/15 History raNITIdine HCl [Zantac] 150 mg PO QDAY 09/07/15 11/20/15 09/07/15 History traZODone [Desyrel] 150 mg PO QHS 09/07/15 11/20/15 09/07/15 History Aspirin [Aspirin BABY CHEW TAB] 81 mg PO QDAY 11/20/15 11/20/15 Unknown History Esomeprazole Magnesium [NexIUM] 40 mg PO BID 11/20/15 11/20/15 Unknown History Ibuprofen [Motrin] 800 mg PO Q8HR PRN 11/20/15 11/20/15 Unknown History Nitroglycerin [Nitrostat] 0.4 mg SL Q5M PRN 11/20/15 11/20/15 Unknown History Oxycodone HCl/Acetaminophen 1 each PO Q6HR PRN 11/20/15 11/20/15 Unknown History [Percocet 10/325 mg] Promethazine [Phenergan TAB] 25 mg PO Q8HR PRN 11/20/15 11/20/15 Unknown History Quetiapine Fumarate [SEROquel XR] 400 mg PO QHS 11/20/15 11/20/15 Unknown History Zolpidem [Ambien] 10 mg PO BID 11/20/15 11/20/15 Unknown History carisoprodoL [Soma] 350 mg PO TID 11/20/15 11/20/15 Unknown History diphenhydrAMINE [Benadryl CAP] 50 mg PO Q8HR PRN 11/20/15 11/20/15 Unknown History lisinopriL [Zestril TAB] 5 mg PO QDAY #30 tablet 11/22/15 Unknown Rx Azithromycin 250 mg PO DAILY #6 tablet 11/10/18 Unknown Rx predniSONE [Deltasone] 40 mg PO QDAY 4 Days #8 tab 11/10/18 Unknown Rx Albuterol Sulfate [Ventolin HFA] 2 puff IH Q4H PRN #1 hfa.aer.ad 02/06/19 Unk nown Rx Benzonatate [Tessalon Perles] 100 mg PO Q8HR PRN #30 capsule 02/06/19 Unknown Rx predniSONE [predniSONE 10mg (21 10 mg PO QDAY #1 tab.ds.pk 02/06/19 Unknown Rx tabs)] Budesonide/Formoterol Fumarate 10.2 gm IH BID #1 hfa.aer.ad 02/15/19 Unknown Rx [Symbicort 80-4.5 Mcg Inhaler] Cetirizine HCl [ZyrTEC] 10 mg PO QDAY #30 capsule 02/15/19 Unknown Rx Ondansetron [Zofran Odt] 4 mg PO Q8HR #12 tab.rapdis 02/15/19 Unknown Rx Ibuprofen [Motrin 800 MG tab] 800 mg PO Q8HR PRN #14 tablet 01/01/20 Unknown Rx Cyclobenzaprine [Flexeril 10 MG 10 mg PO Q8H PRN #21 01/12/20 Unknown Rx TAB] Ibuprofen [Motrin] 600 mg PO Q8H PRN #24 tablet 01/12/20 Unknown Rx ED Physical Exam - General Limitations: No Limitations General appearance: alert, in no apparent distress - Head Head exam: Present: atraumatic, normocephalic, normal inspection - Eye Eye exam: Present: normal appearance, PERRL, EOMI Pupils: Present: normal accommodation - ENT ENT exam: Present: normal exam, normal orophraynx, mucous membranes moist, TM's normal bilaterally, normal external ear exam - Neck Neck exam: Present: normal inspection, full ROM. Absent: tenderness - Respiratory Respiratory exam: Present: normal lung sounds bilaterally. Absent: respiratory distress, wheezes, chest wall tenderness, accessory muscle use - Cardiovascular Cardiovascular Exam: Present: normal rhythm, tachycardia, normal heart sounds. Absent: systolic murmur, diastolic murmur, rubs, gallop - GI/Abdominal GI/Abdominal exam: Present: soft, normal bowel sounds. Absent: tenderness, guarding, hyperactive bowel sounds - Extremities Exam Extremities exam: Present: normal inspection, full ROM, tenderness (Palpable left hip tenderness), normal capillary refill - Back Exam Back exam: Present: normal inspection, full ROM, tenderness (Palpable lumbosacral paraspinal musculoskeletal tenderness), muscle spasm, paraspinal tenderness - Neurological Exam Neurological exam: Present: alert, oriented X3 - Psychiatric Psychiatric exam: Present: normal affect, normal mood - Skin Skin exam: Present: warm, dry, intact, normal color. Absent: rash ED Course Vital Signs 01/12/20 20:00 Temperature 97.7 F Pulse Rate 104 H Respiratory 20 Rate Blood Pressure 124/85 O2 Sat by Pulse 99 Oximetry ED Medical Decision Making - Radiology Data Radiology results: report reviewed, image reviewed - Medical Decision Making This is a 59-year-old -Martiniquais male with a history of emo-wexswiu-rvjqhfmyo diabetes, hypertension and chronic osteoarthritis and status post left hip total knee replacement 8 years ago and who presents to the ED with complaint of acute exacerbation of his chronic left hip pain and low back pain after he slipped and fell down 2 stairs at home about 2 hours ago. In the ED, patient is alert and oriented x3 and is not in distress but appears to be in pain. Patient was treated for pain in the ED in the left hip and L-spine x-ray showed no acute fractures or subluxations. The left hip prosthetic device is intact and in place. On reevaluation, patient's pain is well controlled with medications, patient is ambulatory in the ED with no difficulties. Patient was discharged home on pain medications and muscle relaxants advised to follow- up with his primary care physician in 5 to 7 days for reevaluation or return to the ED immediately if symptoms get worse. - Differential Diagnosis muscle strain; hip contusion; hip fracture; Muscle spasm Critical care attestation.: If time is entered above; I have spent that time in minutes in the direct care of this critically ill patient, excluding procedure time. ED Disposition Clinical Impression: Chronic pain of right hip, Spasm of muscle of lower back Contusion of left hip and thigh Qualifiers: Encounter type: initial encounter Qualified Code(s): S70.02XA - Contusion of left hip, initial encounter; S70.12XA - Contusion of left thigh, initial encounter Disposition: DC- TO HOME OR SELFCARE Is pt being admited?: No Does the pt Need Aspirin: No Condition: Stable Instructions: Arthralgia (ED), Hip Sprain (ED), Muscle Spasm (ED), Back Pain (ED) Additional Instructions: Take medication with food, drink plenty of fluids and follow-up with your primary care physician and 5 to 7 days for reevaluation. Return to the ED immediately if symptoms get worse. Prescriptions: Cyclobenzaprine [Flexeril 10 MG TAB] 10 mg PO Q8H PRN #21 PRN Reason: Muscle Spasm Ibuprofen [Motrin] 600 mg PO Q8H PRN #24 tablet PRN Reason: Pain Referrals: CARBUCCIA,DOMONIQUE, MD [Staff Physician] - 7-10 days Time of Disposition: 21:49 Print Language: BRITISH
[2020-01-12 22:03] VITALS: BP 121/82
== END 2020-01-12 22:02 | disposition home or self-care (01) ==
LOC: ED 18:18
DX: S70.02XA Contusion of left hip, initial encounter (principal); S70.12XA Contusion of left thigh, initial encounter; M62.830 Muscle spasm of back; I10 Essential (primary) hypertension; I25.2 Old myocardial infarction; E11.9 Type 2 diabetes mellitus without complications; M19.90 Unspecified osteoarthritis, unspecified site; F17.200 Nicotine dependence, unspecified, uncomplicated; Z98.890 Other specified postprocedural states; Z79.899 Other long term (current) drug therapy; Z88.8 Allergy status to other drugs, medicaments and biological substances; W10.9XXA Fall (on) (from) unspecified stairs and steps, initial encounter; Y93.89 Activity, other specified; Y92.89 Other specified places as the place of occurrence of the external cause; Y99.8 Other external cause status
CPT/HCPCS: 72100; Q0162

== ENCOUNTER 2020-07-17 14:06 | Emergency (ER) | payer MEDICARE ==
--- NOTE | 2020-07-17 14:08 | Emergency Department Report ---
Blank Doc - Documentation Documentation: 60-year-old male that presents with left hip pain s/p fall. This initial assessment/diagnostic orders/clinical plan/treatment(s) is/are subject to change based on patient's health status, clinical progression and re- assessment by fellow clinical providers in the ED. Further treatment and workup at subsequent clinical providers discretion. Patient/guardians urged not to elope from the ED as their condition may be serious if not clinically assessed and managed. Initial orders include: 1- Patient sent to [facility] for further evaluation and treatment 2- xrays
[2020-07-17 14:10] VITALS: BP 122/79
--- NOTE | 2020-07-17 14:31 | XRay Report ---
LEFT HIP 3 VIEWS INDICATION / CLINICAL INFORMATION: Left hip pain after fall. COMPARISON: Left hip series dated 01/12/2020. FINDINGS: BONES and JOINT(S): No acute fracture or subluxation. No significant arthritis. The bones are deminer alized. The previously seen left hip arthroplasty is unchanged. SOFT TISSUES: No significant abnormality. ADDITIONAL FINDINGS: None. IMPRESSION: 1. No acute findings. Signer Name: Barrett Rodas MD Signed: 07/17/2020 2:27 PM Workstation Name: [id number]
[2020-07-17] MEDS ORDERED: HYDROcodone/ACETAMINOPHEN 5-325 MG TAB PO ONE (14:53)
--- NOTE | 2020-07-17 14:57 | Emergency Department Report ---
ED Lower Extremity HPI - General Chief Complaint: Extremity Injury, Lower Stated Complaint: FELL HIT HIP Time Seen by Provider: 07/17/20 14:08 Source: patient Mode of arrival: Ambulatory Limitations: No Limitations - History of Present Illness Initial Comments: Patient is a 60-year-old male presents emergency room after a fall that occurred just prior to arrival. Patient states that he was walking down the steps and accidentally tripped over a tree root. He states that he fell onto his left hip. He states he has been ambulatory since the incident. He states that he chronically walks with a cane. He denies any numbness, weakness, bowel or bladder incontinence, hitting his head, loss of consciousness, vomiting, any other injury. Patient states that he has a history of a left hip arthroplasty. He has a past medical history of CHF, COPD, hypertension. He has an allergy to Compazine and tramadol. - Related Data Home Medications Medication Instructions Recorded Confirmed Last Taken ARIPiprazole [Abilify TAB] 15 mg PO DAILY 09/07/15 11/20/15 09/07/15 Citalopram [celeXA] 40 mg PO QDAY 09/07/15 11/20/15 09/07/[address] [Voltaren Dr] 75 mg PO QDAY 09/07/15 11/20/15 09/07/15 Hydroxyzine HCl [hydrOXYzine] 50 mg PO QDAY 09/07/15 11/20/15 09/07/15 Ipratropium (Nf) [Atrovent HFA 2 puff IH Q6HR PRN 09/07/15 11/20/15 09/07/15 17MCG/PUFF] Meloxicam 15 mg PO QDAY 09/07/15 11/20/15 09/07/15 Mirtazapine [Remeron] 15 mg PO QDAY 09/07/15 11/20/15 09/07/15 cloNIDine [Catapres] 0.2 mg PO BID 09/07/15 11/20/15 09/07/15 metFORMIN [Glucophage] 500 mg PO BID 09/07/15 11/20/15 09/07/15 methOCARBAMOL [Robaxin TAB] 500 mg PO QID 09/07/15 11/20/15 09/07/15 raNITIdine HCl [Zantac] 150 mg PO QDAY 09/07/15 11/20/15 09/07/15 traZODone [Desyrel] 150 mg PO QHS 09/07/15 11/20/15 09/07/15 Aspirin [Aspirin BABY CHEW TAB] 81 mg PO QDAY 11/20/15 11/20/15 Unknown Esomeprazole Magnesium [NexIUM] 40 mg PO BID 11/20/15 11/20/15 Unknown Ibuprofen [Motrin] 800 mg PO Q8HR PRN 11/20/15 11/20/15 Unknown Nitroglycerin [Nitrostat] 0.4 mg SL Q5M PRN 11/20/15 11/20/15 Unknown Oxycodone HCl/Acetaminophen 1 each PO Q6HR PRN 11/20/15 11/20/15 Unknown [Percocet 10/325 mg] Promethazine [Phenergan TAB] 25 mg PO Q8HR PRN 11/20/15 11/20/15 Unknown Quetiapine Fumarate [SEROquel XR] 400 mg PO QHS 11/20/15 11/20/15 Unknown Zolpidem [Ambien] 10 mg PO BID 11/20/15 11/20/15 Unknown carisoprodoL [Soma] 350 mg PO TID 11/20/15 11/20/15 Unknown diphenhydrAMINE [Benadryl CAP] 50 mg PO Q8HR PRN 11/20/15 11/20/15 Unknown Previous Rx's Medication Instructions Recorded Last Taken Type lisinopriL [Zestril TAB] 5 mg PO QDAY #30 tablet 11/22/15 Unknown Rx Azithromycin 250 mg PO DAILY #6 tablet 11/10/18 Unknown Rx predniSONE [Deltasone] 40 mg PO QDAY 4 Days #8 tab 11/10/18 Unknown Rx Albuterol Sulfate [Ventolin HFA] 2 puff IH Q4H PRN #1 hfa.aer.ad 02/06/19 Unknown Rx Benzonatate [Tessalon Perles] 100 mg PO Q8HR PRN #30 capsule 02/06/19 Unknown Rx predniSONE [predniSONE 10mg (21 10 mg PO QDAY #1 tab.ds.pk 02/06/19 Unknown Rx tabs)] Budesonide/Formoterol Fumarate 10.2 gm IH BID #1 hfa.aer.ad 02/15/19 Unknown Rx [Symbicort 80-4.5 Mcg Inhaler] Cetirizine HCl [ZyrTEC] 10 mg PO QDAY #30 capsule 02/15/19 Unknown Rx Ondansetron [Zofran Odt] 4 mg PO Q8HR #12 tab.rapdis 02/15/19 Unknown Rx Ibuprofen [Motrin 800 MG tab] 800 mg PO Q8HR PRN #14 tablet 01/01/20 Unknown Rx Cyclobenzaprine [Flexeril 10 MG 10 mg PO Q8H PRN #21 01/12/20 Unknown Rx TAB] Ibuprofen [Motrin] 600 mg PO Q8H PRN #24 tablet 01/12/20 Unknown Rx Menthol/Camphor [[place] 1 applic TP BID #18 oint...g. 07/17/20 Unknown Rx Ointment] Naproxen [EC-Naprosyn] 500 mg PO BID PRN #14 tablet. 07/17/20 Unknown Rx Allergies Allergy/AdvReac Type Severity Reaction Status Date / Time prochlorperazine edisylate Allergy Swelling Verified 02/06/19 19:14 [From Compazine] prochlorperazine maleate Allergy Swelling Verified 02/06/19 19:14 [From Compazine] tramadol Allergy Swelling Verified 02/06/19 19:14 ED Review of Systems ROS: Stated complaint: FELL HIT HIP Other details as noted in HPI Comment: All other systems reviewed and negative ED Past Medical Hx - Past Medical History Previous Medical History?: Yes Hx Hypertension: Yes Hx Heart Attack/AMI: Yes (x2) Hx Diabetes: Yes Hx Arthritis: Yes Hx Psychiatric Treatment: Yes (Poehler, schizophrenia, alcohol dependence) Hx Asthma: Yes Additional medical history: hernia - Surgical History Past Surgical History?: Yes Additional Surgical History: left hip replacement, bilateral knee replacement. left testicle removed. HERNIA REPAIR X 4. BILATERAL ROTATOR CUFF REPAIR, - Social History Smoking Status: Current Every Day Smoker Substance Use Type: None - Medications Home Medications: Home Medications Medication Instructions Recorded Confirmed Last Taken Type ARIPiprazole [Abilify TAB] 15 mg PO DAILY 09/07/15 11/20/15 09/07/15 History Citalopram [celeXA] 40 mg PO QDAY 09/07/15 11/20/15 09/07/15 History Diclofenac [[place]] 75 mg PO QDAY 09/07/15 11/20/15 09/07/15 History Hydroxyzine HCl [hydrOXYzine] 50 mg PO QDAY 09/07/15 11/20/15 09/07/15 History Ipratropium (Nf) [Atrovent HFA 2 puff IH Q6HR PRN 09/07/15 11/20/15 09/07/15 History 17MCG/PUFF] Meloxicam 15 mg PO QDAY 09/07/15 11/20/15 09/07/15 History Mirtazapine [Remeron] 15 mg PO QDAY 09/07/15 11/20/15 09/07/15 History cloNIDine [Catapres] 0.2 mg PO BID 09/07/15 11/20/15 09/07/15 History metFORMIN [Glucophage] 500 mg PO BID 09/07/15 11/20/15 09/07/15 History methOCARBAMOL [Robaxin TAB] 500 mg PO QID 09/07/15 11/20/15 09/07/15 History raNITIdine HCl [Zantac] 150 mg PO QDAY 09/07/15 11/20/15 09/07/15 History traZODone [Desyrel] 150 mg PO QHS 09/07/15 11/20/15 09/07/15 History Aspirin [Aspirin BABY CHEW TAB] 81 mg PO QDAY 11/20/15 11/20/15 Unknown History Esomeprazole Magnesium [NexIUM] 40 mg PO BID 11/20/15 11/20/15 Unknown History Ibuprofen [Motrin] 800 mg PO Q8HR PRN 11/20/15 11/20/15 Unknown History Nitroglycerin [Nitrostat] 0.4 mg SL Q5M PRN 11/20/15 11/20/15 Unknown History Oxycodone HCl/Acetaminophen 1 each PO Q6HR PRN 11/20/15 11/20/15 Unknown History [Percocet 10/325 mg] Promethazine [Phenergan TAB] 25 mg PO Q8HR PRN 11/20/15 11/20/15 Unknown History Quetiapine Fumarate [SEROquel XR] 400 mg PO QHS 11/20/15 11/20/15 Unknown History Zolpidem [Ambien] 10 mg PO BID 11/20/15 11/20/15 Unknown History carisoprodoL [Soma] 350 mg PO TID 11/20/15 11/20/15 Unknown History diphenhydrAMINE [Benadryl CAP] 50 mg PO Q8HR PRN 11/20/15 11/20/15 Unknown History lisinopriL [Zestril TAB] 5 mg PO QDAY #30 tablet 11/22/15 Unknown Rx Azithromycin 250 mg PO DAILY #6 tablet 11/10/18 Unknown Rx predniSONE [Deltasone] 40 mg PO QDAY 4 Days #8 tab 11/10/18 Unknown Rx Albuterol Sulfate [Ventolin HFA] 2 puff IH Q4H PRN #1 hfa.aer.ad 02/06/19 Unknown Rx Benzonatate [Tessalon Perles] 100 mg PO Q8HR PRN #30 capsule 02/06/19 Unknown Rx predniSONE [predniSONE 10mg (21 10 mg PO QDAY #1 tab.ds.pk 02/06/19 Unknown Rx tabs)] Budesonide/Formoterol Fumarate 10.2 gm IH BID #1 hfa.aer.ad 02/15/19 Unknown Rx [Symbicort 80-4.5 Mcg Inhaler] Cetirizine HCl [ZyrTEC] 10 mg PO QDAY #30 capsule 02/15/19 Unknown Rx Ondansetron [Zofran Odt] 4 mg PO Q8HR #12 tab.rapdis 02/15/19 Unknown Rx Ibuprofen [Motrin 800 MG tab] 800 mg PO Q8HR PRN #14 tablet 01/01/20 Unknown Rx Cyclobenzaprine [Flexeril 10 MG 10 mg PO Q8H PRN #21 01/12/20 Unknown Rx TAB] Ibuprofen [Motrin] 600 mg PO Q8H PRN #24 tablet 01/12/20 Unknown Rx Menthol/Camphor [[place] 1 applic TP BID #18 oint...g. 07/17/20 Unknown Rx Ointment] Naproxen [EC-Naprosyn] 500 mg PO BID PRN #14 tablet. 07/17/20 Unknown Rx ED Physical Exam - General Limitations: No Limitations General appearance: alert, in no apparent distress - Head Head exam: Present: atraumatic, normocephalic - Eye Eye exam: Present: normal appearance - ENT ENT exam: Present: mucous membranes moist - Respiratory Respiratory exam: Present: normal lung sounds bilaterally. Absent: respiratory distress, wheezes, rales, rhonchi, stridor, chest wall tenderness, accessory muscle use, decreased breath sounds, prolonged expiratory - Cardiovascular Cardiovascular Exam: Present: regular rate, normal rhythm, normal heart sounds. Absent: systolic murmur, diastolic murmur, rubs, gallop - Extremities Exam Extremities exam: Present: other (ttp to the left anterior hip, FROM of the LLE with some discomfort on full flexion, no obvious deformity or joint laxity, no leg edema, neurovascularly intact) - Neurological Exam Neurological exam: Present: alert, oriented X3 - Psychiatric Psychiatric exam: Present: normal affect, normal mood - Skin Skin exam: Present: warm, dry, intact ED Course Vital Signs 07/17/20 14:09 Temperature 97.6 F Pulse Rate 96 H Respiratory 16 Rate Blood Pressure 122/79 [Right] O2 Sat by Pulse 98 Oximetry ED Lower Extremity MDM - Radiology Data Radiology results: report reviewed LEFT HIP 3 VIEWS INDICATION / CLINICAL INFORMATION: Left hip pain after fall. COMPARISON: Left hip series dated 01/12/2020. FINDINGS: BONES and JOINT(S): No acute fracture or subluxation. No significant arthritis. The bones are demineralized. The previously seen left hip arthroplasty is unchanged. SOFT TISSUES: No significant abnormality. ADDITIONAL FINDINGS: None. IMPRESSION: 1. No acute findings. Signer Name: Barrett Rodas MD Signed: 07/17/2020 2:27 PM Workstation Name: [id number] Transcribed By: [place] Dictated By: Barrett Rodas MD Electronically Authenticated By: Barrett Rodas MD Signed Date/Time: 07/17/20 1427 DD/ 1425 TD/TT: - Medical Decision Making Patient is a 60-year-old male presents emergency room after a fall that occurred just prior to arrival. Patient states that he was walking down the steps and accidentally tripped over a tree root. He states that he fell onto his left hip. He states he has been ambulatory since the incident. He states that he chronically walks with a cane. He denies any numbness, weakness, bowel or bladd er incontinence, hitting his head, loss of consciousness, vomiting, any other injury. Patient states that he has a history of a left hip arthroplasty. He has a past medical history of CHF, COPD, hypertension. He has an allergy to Compazine and tramadol. vitals are normal. on exam: ttp to the left anterior hip, FROM of the LLE with some discomfort on full flexion, no obvious deformity or joint laxity, no leg edema, neurovascularly intact. XR left hip: 1. No acute findings. Patient given pain medication while in the emergency department as he did not drive, and symptoms improved. Critical care attestation.: If time is entered above; I have spent that time in minutes in the direct care of this critically ill patient, excluding procedure time. ED Disposition Clinical Impression: Left hip pain Fall Qualifiers: Encounter type: initial encounter Qualified Code(s): W19.XXXA - Unspecified fall, initial encounter Disposition: TO HOME OR SELFCARE Is pt being admited?: No Does the pt Need Aspirin: No Condition: Stable Instructions: Arthralgia (ED) Additional Instructions: Please use medication as prescribed. May use ice for 15 minutes at a time, rest, elevation of the leg. Follow-up with your primary care doctor. Follow-up with orthopedic doctor. Return to emergency room for any new or worsening symptoms. Prescriptions: Naproxen [EC-Naprosyn] 500 mg PO BID PRN #14 tablet.dr BENITEZ Reason: pain Menthol/Camphor [[place] Ointment] 1 applic TP BID #18 oint...g. Referrals: DOMONIQUE EDWARDS MD [Staff Physician] - 2-3 Days [facility] [Provider Group] - 2-3 Days KRIS CAMPBELL MD [Staff Physician] - 2-3 Days [facility] [Provider Group] - 2-3 Days Time of Disposition: 14:57 Print Language: KHMER
== END 2020-07-17 16:06 | disposition home or self-care (01) ==
LOC: ED 14:06
DX: M25.552 Pain in left hip (principal); I11.0 Hypertensive heart disease with heart failure; I50.9 Heart failure, unspecified; J44.9 Chronic obstructive pulmonary disease, unspecified; F25.9 Schizoaffective disorder, unspecified; I25.2 Old myocardial infarction; M19.90 Unspecified osteoarthritis, unspecified site; F17.200 Nicotine dependence, unspecified, uncomplicated; Z79.899 Other long term (current) drug therapy; Z88.8 Allergy status to other drugs, medicaments and biological substances; Z98.890 Other specified postprocedural states; W10.9XXA Fall (on) (from) unspecified stairs and steps, initial encounter; Y93.89 Activity, other specified; Y92.89 Other specified places as the place of occurrence of the external cause; Y99.8 Other external cause status
CPT/HCPCS: 99283

== ENCOUNTER 2020-07-22 14:19 | Emergency (ER) | payer MEDICARE ==
[2020-07-22 14:34] VITALS: BP 109/75
--- NOTE | 2020-07-22 15:07 | XRay Report ---
CHEST 2 VIEWS INDICATION / CLINICAL INFORMATION: cough, sob. COMPARISON: 02/15/2019 FINDINGS: SUPPORT DEVICES: None. HEART / MEDIASTINUM: No significant abnormality. LUNGS / PLEURA: No significant pulmonary or pleural abnormality. No pneumothorax. ADDITIONAL FINDINGS: No significant additional findings. IMPRESSION: 1. No acute findings. Signer Name: Aquilino Krishnamurthy MD Signed: 07/22/2020 3:02 PM Workstation Name: [id number]
--- NOTE | 2020-07-22 17:33 | Emergency Department Report ---
- General Chief Complaint: Upper Respiratory Infection Stated Complaint: COUGHING/SOB Time Seen by Provider: 07/22/20 16:31 Source: patient Mode of arrival: Ambulatory Limitations: No Limitations - History of Present Illness Initial Comments: This 60-year-old male he is complaining of cough x2 days. The cough is productive with yellow-green mucus he denies fever chills nausea vomiting. This gentleman has reports a history of COPD. He is a current cigarette smoker. His room air saturation is 100%. Heart rate of 96 blood pressure 109/75 temperature 98.4 patient denies chest pain shortness of breath. MD Complaint: cough -: days(s) (2) Severity: mild Consistency: intermittent Improves With: other (He reports improvement in the past with Tessalon Perles but states he is out of it) Worsens With: nothing (No known sick contacts) Associated Symptoms: cough. denies: fever, chills, myalgias, diaphoresis, headache, rhinorrhea, nasal congestion, sore throat, stiff neck, chest pain, shortness of breath, abdominal pain, nausea, vomiting, diarrhea, rash, confusion, right sweats, weight loss, epistaxis, hoarseness, ear pain - Related Data Home Medications Medication Instructions Recorded Confirmed Last Taken ARIPiprazole [Abilify TAB] 15 mg PO DAILY 09/07/15 11/20/15 09/07/15 Citalopram [celeXA] 40 mg PO QDAY 09/07/15 11/20/15 09/07/[address] [Voltaren Dr] 75 mg PO QDAY 09/07/15 11/20/15 09/07/15 Hydroxyzine HCl [hydrOXYzine] 50 mg PO QDAY 09/07/15 11/20/15 09/07/15 Ipratropium (Nf) [Atrovent HFA 2 puff IH Q6HR PRN 09/07/15 11/20/15 09/07/15 17MCG/PUFF] Meloxicam 15 mg PO QDAY 09/07/15 11/20/15 09/07/15 Mirtazapine [Remeron] 15 mg PO QDAY 09/07/15 11/20/15 09/07/15 cloNIDine [Catapres] 0.2 mg PO BID 09/07/15 11/20/15 09/07/15 metFORMIN [Glucophage] 500 mg PO BID 09/07/15 11/20/15 09/07/15 methOCARBAMOL [Robaxin TAB] 500 mg PO QID 09/07/15 11/20/15 09/07/15 raNITIdine HCl [Zantac] 150 mg PO QDAY 09/07/15 11/20/15 09/07/15 traZODone [Desyrel] 150 mg PO QHS 09/07/15 11/20/15 09/07/15 Aspirin [Aspirin BABY CHEW TAB] 81 mg PO QDAY 11/20/15 11/20/15 Unknown Esomeprazole Magnesium [NexIUM] 40 mg PO BID 11/20/15 11/20/15 Unknown Ibuprofen [Motrin] 800 mg PO Q8HR PRN 11/20/15 11/20/15 Unknown Nitroglycerin [Nitrostat] 0.4 mg SL Q5M PRN 11/20/15 11/20/15 Unknown Oxycodone HCl/Acetaminophen 1 each PO Q6HR PRN 11/20/15 11/20/15 Unknown [Percocet 10/325 mg] Promethazine [Phenergan TAB] 25 mg PO Q8HR PRN 11/20/15 11/20/15 Unknown Quetiapine Fumarate [SEROquel XR] 400 mg PO QHS 11/20/15 11/20/15 Unknown Zolpidem [Ambien] 10 mg PO BID 11/20/15 11/20/15 Unknown carisoprodoL [Soma] 350 mg PO TID 11/20/15 11/20/15 Unknown diphenhydrAMINE [Benadryl CAP] 50 mg PO Q8HR PRN 11/20/15 11/20/15 Unknown Previous Rx's Medication Instructions Recorded Last Taken Type lisinopriL [Zestril TAB] 5 mg PO QDAY #30 tablet 11/22/15 Unknown Rx Azithromycin 250 mg PO DAILY #6 tablet 11/10/18 Unknown Rx predniSONE [Deltasone] 40 mg PO QDAY 4 Days #8 tab 11/10/18 Unknown Rx Albuterol Sulfate [Ventolin HFA] 2 puff IH Q4H PRN #1 hfa.aer.ad 02/06/19 Unknown Rx Benzonatate [Tessalon Perles] 100 mg PO Q8HR PRN #30 capsule 02/06/19 Unknown Rx predniSONE [predniSONE 10mg (21 10 mg PO QDAY #1 tab.ds.pk 02/06/19 Unknown Rx tabs)] Budesonide/Formoterol Fumarate 10.2 gm IH BID #1 hfa.aer.ad 02/15/19 Unknown Rx [Symbicort 80-4.5 Mcg Inhaler] Cetirizine HCl [ZyrTEC] 10 mg PO QDAY #30 capsule 02/15/19 Unknown Rx Ondansetron [Zofran Odt] 4 mg PO Q8HR #12 tab.rapdis 02/15/19 Unknown Rx Ibuprofen [Motrin 800 MG tab] 800 mg PO Q8HR PRN #14 tablet 01/01/20 Unknown Rx Cyclobenzaprine [Flexeril 10 MG 10 mg PO Q8H PRN #21 01/12/20 Unknown Rx TAB] Ibuprofen [Motrin] 600 mg PO Q8H PRN #24 tablet 01/12/20 Unknown Rx Menthol/Camphor [[place] 1 applic TP BID #18 oint...g. 07/17/20 Unknown Rx Ointment] Naproxen [EC-Naprosyn] 500 mg PO BID PRN #14 tablet. 07/17/20 Unknown Rx Azithromycin [Zithromax Z-PAVITHRA] 0 mg PO DAILY #1 pack 07/22/20 Unknown Rx Benzonatate [Tessalon Perles] 100 mg PO Q8HR PRN #20 capsule 07/22/20 Unknown Rx Allergies Allergy/AdvReac Type Severity Reaction Status Date / Time prochlorperazine edisylate Allergy Swelling Verified 02/06/19 19:14 [From Compazine] prochlorperazine maleate Allergy Swelling Verified 02/06/19 19:14 [From Compazine] tramadol Allergy Swelling Verified 02/06/19 19:14 ED Review of Systems ROS: Stated complaint: COUGHING/SOB Other details as noted in HPI Comment: All other systems reviewed and negative Constitutional: no symptoms reported. denies: chills, fever, malaise, other ENT: denies: ear pain, dental pain, hearing loss Respiratory: cough Cardiovascular: denies: chest pain, palpitations, dyspnea on exertion, edema Gastrointestinal: denies: abdominal pain, vomiting, constipation, melena Skin: denies: rash Neurological: denies: headache, weakness, paresthesias, abnormal gait ED Past Medical Hx - Past Medical History Previous Medical History?: Yes Hx Hypertension: Yes Hx Heart Attack/AMI: Yes (x2) Hx Diabetes: Yes Hx Arthritis: Yes Hx Psychiatric Treatment: Yes (Poehler, schizophrenia, alcohol dependence) Hx Asthma: Yes Additional medical history: hernia - Surgical History Past Surgical History?: Yes Additional Surgical History: left hip replacement, bilateral knee replacement. left testicle removed. HERNIA REPAIR X 4. BILATERAL ROTATOR CUFF REPAIR, - Social History Smoking Status: Never Smoker Substance Use Type: None - Medications Home Medications: Home Medications Medication Instructions Recorded Confirmed Last Taken Type ARIPiprazole [Abilify TAB] 15 mg PO DAILY 09/07/15 11/20/15 09/07/15 History Citalopram [celeXA] 40 mg PO QDAY 09/07/15 11/20/15 09/07/[address] [[place] Dr] 75 mg PO QDAY 09/07/15 11/20/15 09/07/15 History Hydroxyzine HCl [hydrOXYzine] 50 mg PO QDAY 09/07/15 11/20/15 09/07/15 History Ipratropium (Nf) [Atrovent HFA 2 puff IH Q6HR PRN 09/07/15 11/20/15 09/07/15 History 17MCG/PUFF] Meloxicam 15 mg PO QDAY 09/07/15 11/20/15 09/07/15 History Mirtazapine [Remeron] 15 mg PO QDAY 09/07/15 11/20/15 09/07/15 History cloNIDine [Catapres] 0.2 mg PO BID 09/07/15 11/20/15 09/07/15 History metFORMIN [Glucophage] 500 mg PO BID 09/07/15 11/20/15 09/07/15 History methOCARBAMOL [Robaxin TAB] 500 mg PO QID 09/07/15 11/20/15 09/07/15 History raNITIdine HCl [Zantac] 150 mg PO QDAY 09/07/15 11/20/15 09/07/15 History traZODone [Desyrel] 150 mg PO QHS 09/07/15 11/20/15 09/07/15 History Aspirin [Aspirin BABY CHEW TAB] 81 mg PO QDAY 11/20/15 11/20/15 Unknown History Esomeprazole Magnesium [NexIUM] 40 mg PO BID 11/20/15 11/20/15 Unknown History Ibuprofen [Motrin] 800 mg PO Q8HR PRN 11/20/15 11/20/15 Unknown History Nitroglycerin [Nitrostat] 0.4 mg SL Q5M PRN 11/20/15 11/20/15 Unknown History Oxycodone HCl/Acetaminophen 1 each PO Q6HR PRN 11/20/15 11/20/15 Unknown History [Percocet 10/325 mg] Promethazine [Phenergan TAB] 25 mg PO Q8HR PRN 11/20/15 11/20/15 Unknown History Quetiapine Fumarate [SEROquel XR] 400 mg PO QHS 11/20/15 11/20/15 Unknown History Zolpidem [Ambien] 10 mg PO BID 11/20/15 11/20/15 Unknown History carisoprodoL [Soma] 350 mg PO TID 11/20/15 11/20/15 Unknown History diphenhydrAMINE [Benadryl CAP] 50 mg PO Q8HR PRN 11/20/15 11/20/15 Unknown History lisinopriL [Zestril TAB] 5 mg PO QDAY #30 tablet 11/22/15 Unknown Rx Azithromycin 250 mg PO DAILY #6 tablet 11/10/18 Unknown Rx predniSONE [Deltasone] 40 mg PO QDAY 4 Days #8 tab 11/10/18 Unknown Rx Albuterol Sulfate [Ventolin HFA] 2 puff IH Q4H PRN #1 hfa.aer.ad 02/06/19 Unknown Rx Benzonatate [Tessalon Perles] 100 mg PO Q8HR PRN #30 capsule 02/06/19 Unknown Rx predniSONE [predniSONE 10mg (21 10 mg PO QDAY #1 tab.ds.pk 02/06/19 Unknown Rx tabs)] Budesonide/Formoterol Fumarate 10.2 gm IH BID #1 hfa.aer.ad 02/15/19 Unknown Rx [Symbicort 80-4.5 Mcg Inhaler] Cetirizine HCl [ZyrTEC] 10 mg PO QDAY #30 capsule 02/15/19 Unknown Rx Ondansetron [Zofran Odt] 4 mg PO Q8HR #12 tab.rapdis 02/15/19 Unknown Rx Ibuprofen [Motrin 800 MG tab] 800 mg PO Q8HR PRN #14 tablet 01/01/20 Unknown Rx Cyclobenzaprine [Flexeril 10 MG 10 mg PO Q8H PRN #21 01/12/20 Unknown Rx TAB] Ibuprofen [Motrin] 600 mg PO Q8H PRN #24 tablet 01/12/20 Unknown Rx Menthol/Camphor [[place] 1 applic TP BID #18 oint...g. 07/17/20 Unknown Rx Ointment] Naproxen [EC-Naprosyn] 500 mg PO BID PRN #14 tablet.dr 07/17/20 Unknown Rx Azithromycin [Zithromax Z-PAVITHRA] 0 mg PO DAILY #1 pack 07/22/20 Unknown Rx Benzonatate [Tessalon Perles] 100 mg PO Q8HR PRN #20 capsule 07/22/20 Unknown Rx ED Physical Exam - General Limitations: No Limitations General appearance: alert - Head Head exam: Present: atraumatic - Eye Eye exam: Present: normal appearance - ENT ENT exam: Present: normal exam, mucous membranes dry, TM's normal bilaterally - Neck Neck exam: Present: normal inspection, full ROM. Absent: lymphadenopathy - Respiratory Respiratory exam: Present: normal lung sounds bilaterally. Absent: respiratory distress, wheezes, chest wall tenderness - Cardiovascular Cardiovascular Exam: Present: regular rate, normal rhythm, normal heart sounds - Extremities Exam Extremities exam: Present: normal inspection - Back Exam Back exam: Present: normal inspection - Neurological Exam Neurological exam: Present: alert, oriented X3 - Psychiatric Psychiatric exam: Present: normal affect - Skin Skin exam: Present: warm, dry, intact, normal color ED Course Vital Signs 07/22/20 14:34 Temperature 98.4 F Pulse Rate 96 H Respiratory 18 Rate Blood Pressure 109/75 [Right] O2 Sat by Pulse 100 Oximetry ED Medical Decision Making - Radiology Data Radiology results: report reviewed Chest x-ray shows no acute findings - Medical Decision Making 60-year-old male with cough x2 days that is productive of yellowish-green phlegm he is a current cigarette smoker and reports past medical history of COPD. On examination his lungs are clear he is in no distress his room air saturation is 96% due to his history and current cigarette smoker will order a Z-Pavithra patient states that Tessalon Perles has helped him in the past so I will also prescribe Tessalon Perles for cough Critical Care Time: No Critical care attestation.: If time is entered above; I have spent that time in minutes in the direct care of this critically ill patient, excluding procedure time. ED Disposition Clinical Impression: Tobacco abuse counseling, Cough URI (upper respiratory infection) Qualifiers: URI type: unspecified URI Qualified Code(s): J06.9 - Acute upper respiratory infection, unspecified Disposition: TO HOME OR SELFCARE Is pt being admited?: No Does the pt Need Aspirin: No Condition: Stable Instructions: Upper Respiratory Infection (ED), Cold Symptoms (ED) Additional Instructions: Stop smoking it is bad for your health. Follow-up with your primary care doctor. Take Z-Pavithra antibiotic as prescribed. Take Tessalon Perles for cough as needed as prescribed. Increase clear liquids. Decrease your dairy intake. If no improvement or worsening symptoms such as SOB fever or chills return to the ER. Prescriptions: Benzonatate [Tessalon Perles] 100 mg PO Q8HR PRN #20 capsule PRN Reason: Cough Azithromycin [Zithromax Z-PAVITHRA] 0 mg PO DAILY #1 pack Referrals: PRIMARY CAREMD [Primary Care Provider] - 3-5 Days DOMONIQUE EDWARDS MD [Staff Physician] - 3-5 Days Time of Disposition: 17:44
== END 2020-07-22 17:55 | disposition home or self-care (01) ==
LOC: ED 14:19
DX: J06.9 Acute upper respiratory infection, unspecified (principal); R05 Cough; I10 Essential (primary) hypertension; I25.2 Old myocardial infarction; E11.9 Type 2 diabetes mellitus without complications; M19.90 Unspecified osteoarthritis, unspecified site; J44.9 Chronic obstructive pulmonary disease, unspecified; F25.9 Schizoaffective disorder, unspecified; Z88.8 Allergy status to other drugs, medicaments and biological substances; Z98.890 Other specified postprocedural states; Z79.899 Other long term (current) drug therapy; Z71.6 Tobacco abuse counseling
CPT/HCPCS: 71046

== ENCOUNTER 2020-10-29 14:59 | Emergency (ER) | payer MEDICARE ==
--- NOTE | 2020-10-29 17:02 | Event Note ---
ED Screening Note Date of service: 10/29/20 Time: 16:58 ED Screening Note: 60-year-old -[place] male presents to the emergency room for left hip pain. Patient reports he has chronic left hip pain but he had a fall and fell on it. Patient states has been taking his pain medication but has not helped. This initial assessment/diagnostic orders/clinical plan/treatment(s) is/are subject to change based on patients health status, clinical progression and re- assessment by fellow clinical providers in the ED. Further treatment and workup at subsequent clinical providers discretion. Patient/guardian urged not to elope from the ED as their condition may be serious if not clinically assessed and managed. Initial orders include:
--- NOTE | 2020-10-29 18:29 | XRay Report ---
LEFT HIP 2 VIEWS INDICATION / CLINICAL INFORMATION: Left hip pain. COMPARISON: 07/17/20 FINDINGS: BONES / JOINT(S): There is a left hip prosthesis. There are moderate degenerative changes involving t he right hip. There is mild lower lumbar spondylosis. I see no evidence of fracture, subluxation or d estructive lesion. SOFT TISSUES: There is mild heterotopic ossification along the lateral margin of the left hip. ADDITIONAL FINDINGS: None. IMPRESSION: No acute abnormality or significant change. Signer Name: Aquilino Garcia MD Signed: 10/29/2020 6:24 PM Workstation Name: [id number]
--- NOTE | 2020-10-29 19:39 | Emergency Department Report ---
ED Extremity Problem HPI - General Stated complaint: LT HIP INJURY Time Seen by Provider: 10/29/20 19:33 - History of Present Illness MD Complaint: joint paint - Related Data Home Medications Medication Instructions Recorded Confirmed Last Taken ARIPiprazole [Abilify TAB] 15 mg PO DAILY 09/07/15 11/20/15 09/07/15 Citalopram [celeXA] 40 mg PO QDAY 09/07/15 11/20/15 09/07/[address] [Voltjosias Aiken] 75 mg PO QDAY 09/07/15 11/20/15 09/07/15 Hydroxyzine HCl [hydrOXYzine] 50 mg PO QDAY 09/07/15 11/20/15 09/07/15 Ipratropium (Nf) [Atrovent HFA 2 puff IH Q6HR PRN 09/07/15 11/20/15 09/07/15 17MCG/PUFF] Meloxicam 15 mg PO QDAY 09/07/15 11/20/15 09/07/15 Mirtazapine [Remeron] 15 mg PO QDAY 09/07/15 11/20/15 09/07/15 cloNIDine [Catapres] 0.2 mg PO BID 09/07/15 11/20/15 09/07/15 metFORMIN [Glucophage] 500 mg PO BID 09/07/15 11/20/15 09/07/15 methOCARBAMOL [Robaxin TAB] 500 mg PO QID 09/07/15 11/20/15 09/07/15 raNITIdine HCl [Zantac] 150 mg PO QDAY 09/07/15 11/20/15 09/07/15 traZODone [Desyrel] 150 mg PO QHS 09/07/15 11/20/15 09/07/15 Aspirin [Aspirin BABY CHEW TAB] 81 mg PO QDAY 11/20/15 11/20/15 Unknown Esomeprazole Magnesium [NexIUM] 40 mg PO BID 11/20/15 11/20/15 Unknown Ibuprofen [Motrin] 800 mg PO Q8HR PRN 11/20/15 11/20/15 Unknown Nitroglycerin [Nitrostat] 0.4 mg SL Q5M PRN 11/20/15 11/20/15 Unknown Oxycodone HCl/Acetaminophen 1 each PO Q6HR PRN 11/20/15 11/20/15 Unknown [Percocet 10/325 mg] Promethazine [Phenergan TAB] 25 mg PO Q8HR PRN 11/20/15 11/20/15 Unknown Quetiapine Fumarate [SEROquel XR] 400 mg PO QHS 11/20/15 11/20/15 Unknown Zolpidem (Nf) [Ambien] 10 mg PO BID 11/20/15 11/20/15 Unknown carisoprodoL [Soma] 350 mg PO TID 11/20/15 11/20/15 Unknown diphenhydrAMINE [Benadryl CAP] 50 mg PO Q8HR PRN 11/20/15 11/20/15 Unknown Previous Rx's Medication Instructions Recorded Last Taken Type lisinopriL [Zestril TAB] 5 mg PO QDAY #30 tablet 11/22/15 Unknown Rx Azithromycin 250 mg PO DAILY #6 tablet 11/10/18 Unknown Rx predniSONE [Deltasone] 40 mg PO QDAY 4 Days #8 tab 11/10/18 Unknown Rx Albuterol Sulfate [Ventolin HFA] 2 puff IH Q4H PRN #1 hfa.aer.ad 02/06/19 Unknown Rx Benzonatate [Tessalon Perles] 100 mg PO Q8HR PRN #30 capsule 02/06/19 Unknown Rx predniSONE [predniSONE 10mg (21 10 mg PO QDAY #1 tab.ds.pk 02/06/19 Unknown Rx tabs)] Budesonide/Formoterol Fumarate 10.2 gm IH BID #1 hfa.aer.ad 02/15/19 Unknown Rx [Symbicort 80-4.5 Mcg Inhaler] Cetirizine HCl [ZyrTEC] 10 mg PO QDAY #30 capsule 02/15/19 Unknown Rx Ondansetron [Zofran Odt] 4 mg PO Q8HR #12 tab.rapdis 02/15/19 Unknown Rx Ibuprofen [Motrin 800 MG tab] 800 mg PO Q8HR PRN #14 tablet 01/01/20 Unknown Rx Cyclobenzaprine [Flexeril 10 MG 10 mg PO Q8H PRN #21 01/12/20 Unknown Rx TAB] Ibuprofen [Motrin] 600 mg PO Q8H PRN #24 tablet 01/12/20 Unknown Rx Menthol/Camphor [[place] 1 applic TP BID #18 oint...g. 07/17/20 Unknown Rx Ointment] Naproxen [EC-Naprosyn] 500 mg PO BID PRN #14 tablet.dr 07/17/20 Unknown Rx Azithromycin [Zithromax Z-PAVITHRA] 0 mg PO DAILY #1 pack 07/22/20 Unknown Rx Benzonatate [Tessalon Perles] 100 mg PO Q8HR PRN #20 capsule 07/22/20 Unknown Rx Ibuprofen [Motrin 600 MG tab] 600 mg PO Q8H PRN #30 tablet 10/29/20 Unknown Rx Allergies Allergy/AdvReac Type Severity Reaction Status Date / Time prochlorperazine edisylate Allergy Swelling Verified 02/06/19 19:14 [From Compazine] prochlorperazine maleate Allergy Swelling Verified 02/06/19 19:14 [From Compazine] tramadol Allergy Swelling Verified 02/06/19 19:14 ED Review of Systems ROS: Stated complaint: LT HIP INJURY Other details as noted in HPI ED Past Medical Hx - Past Medical History Hx Hypertension: Yes Hx Heart Attack/AMI: Yes (x2) Hx Diabetes: Yes Hx Arthritis: Yes Hx Psychiatric Treatment: Yes (Poehler, schizophrenia, alcohol dependence) Hx Asthma: Yes Additional medical history: hernia - Surgical History Additional Surgical History: left hip replacement, bilateral knee replacement. left testicle removed. HERNIA REPAIR X 4. BILATERAL ROTATOR CUFF REPAIR, - Social History Smoking Status: Never Smoker Substance Use Type: None - Medications Home Medications: Home Medications Medication Instructions Recorded Confirmed Last Taken Type ARIPiprazole [Abilify TAB] 15 mg PO DAILY 09/07/15 11/20/15 09/07/15 History Citalopram [celeXA] 40 mg PO QDAY 09/07/15 11/20/15 09/07/15 History Diclofenac [Robles Aiken] 75 mg PO QDAY 09/07/15 11/20/15 09/07/15 History Hydroxyzine HCl [hydrOXYzine] 50 mg PO QDAY 09/07/15 11/20/15 09/07/15 History Ipratropium (Nf) [Atrovent HFA 2 puff IH Q6HR PRN 09/07/15 11/20/15 09/07/15 History 17MCG/PUFF] Meloxicam 15 mg PO QDAY 09/07/15 11/20/15 09/07/15 History Mirtazapine [Remeron] 15 mg PO QDAY 09/07/15 11/20/15 09/07/15 History cloNIDine [Catapres] 0.2 mg PO BID 09/07/15 11/20/15 09/07/15 History metFORMIN [Glucophage] 500 mg PO BID 09/07/15 11/20/15 09/07/15 History methOCARBAMOL [Robaxin TAB] 500 mg PO QID 09/07/15 11/20/15 09/07/15 History raNITIdine HCl [Zantac] 150 mg PO QDAY 09/07/15 11/20/15 09/07/15 History traZODone [Desyrel] 150 mg PO QHS 09/07/15 11/20/15 09/07/15 History Aspirin [Aspirin BABY CHEW TAB] 81 mg PO QDAY 11/20/15 11/20/15 Unknown History Esomeprazole Magnesium [NexIUM] 40 mg PO BID 11/20/15 11/20/15 Unknown History Ibuprofen [Motrin] 800 mg PO Q8HR PRN 11/20/15 11/20/15 Unknown History Nitroglycerin [Nitrostat] 0.4 mg SL Q5M PRN 11/20/15 11/20/15 Unknown History Oxycodone HCl/Acetaminophen 1 each PO Q6HR PRN 11/20/15 11/20/15 Unknown History [Percocet 10/325 mg] Promethazine [Phenergan TAB] 25 mg PO Q8HR PRN 11/20/15 11/20/15 Unknown History Quetiapine Fumarate [SEROquel XR] 400 mg PO QHS 11/20/15 11/20/15 Unknown History Zolpidem (Nf) [Ambien] 10 mg PO BID 11/20/15 11/20/15 Unknown History carisoprodoL [Soma] 350 mg PO TID 11/20/15 11/20/15 Unknown History diphenhydrAMINE [Benadryl CAP] 50 mg PO Q8HR PRN 11/20/15 11/20/15 Unknown History lisinopriL [Zestril TAB] 5 mg PO QDAY #30 tablet 11/22/15 Unknown Rx Azithromycin 250 mg PO DAILY #6 tablet 11/10/18 Unknown Rx predniSONE [Deltasone] 40 mg PO QDAY 4 Days #8 tab 11/10/18 Unknown Rx Albuterol Sulfate [Ventolin HFA] 2 puff IH Q4H PRN #1 hfa.aer.ad 02/06/19 Unknown Rx Benzonatate [Tessalon Perles] 100 mg PO Q8HR PRN #30 capsule 02/06/19 Unknown Rx predniSONE [predniSONE 10mg (21 10 mg PO QDAY #1 tab.ds.pk 02/06/19 Unknown Rx tabs)] Budesonide/Formoterol Fumarate 10.2 gm IH BID #1 hfa.aer.ad 02/15/19 Unknown Rx [Symbicort 80-4.5 Mcg Inhaler] Cetirizine HCl [ZyrTEC] 10 mg PO QDAY #30 capsule 02/15/19 Unknown Rx Ondansetron [Zofran Odt] 4 mg PO Q8HR #12 tab.rapdis 02/15/19 Unknown Rx Ibuprofen [Motrin 800 MG tab] 800 mg PO Q8HR PRN #14 tablet 01/01/20 Unknown Rx Cyclobenzaprine [Flexeril 10 MG 10 mg PO Q8H PRN #21 01/12/20 Unknown Rx TAB] Ibuprofen [Motrin] 600 mg PO Q8H PRN #24 tablet 01/12/20 Unknown Rx Menthol/Camphor [[place] 1 applic TP BID #18 oint...g. 07/17/20 Unknown Rx Ointment] Naproxen [EC-Naprosyn] 500 mg PO BID PRN #14 tablet. 07/17/20 Unknown Rx Azithromycin [Zithromax Z-PAVITHRA] 0 mg PO DAILY #1 pack 07/22/20 Unknown Rx Benzonatate [Tessalon Perles] 100 mg PO Q8HR PRN #20 capsule 07/22/20 Unknown Rx Ibuprofen [Motrin 600 MG tab] 600 mg PO Q8H PRN #30 tablet 10/29/20 Unknown Rx ED Course Vital Signs 10/29/20 17:00 Temperature 98 F Pulse Rate 84 Respiratory 16 Rate O2 Sat by Pulse 98 Oximetry ED Medical Decision Making - Radiology Data Radiology results: report reviewed Patient: HUAN CAMACHO MR#: [id number] : 1960 Acct:[id number] Age/Sex: 60 / M ADM Date: 10/29/20 Loc: ED Attending Dr: Ordering Physician: EVER TILLMAN Date of Service: 10/29/20 Procedure(s): XR hip 2-3V LT Accession Number(s): [id number] cc: EVER TILLMAN Fluoro Time In Minutes: LEFT HIP 2 VIEWS INDICATION / CLINICAL INFORMATION: Left hip pain. COMPARISON: 07/17/20 FINDINGS: BONES / JOINT(S): There is a left hip prosthesis. There are moderate degenerative changes involving the right hip. There is mild lower lumbar spondylosis. I see no evidence of fracture, subluxation or destructive lesion. SOFT TISSUES: There is mild heterotopic ossification along the lateral margin of the left hip. ADDITIONAL FINDINGS: None. IMPRESSION: No acute abnormality or significant change. Signer Name: Kris Garcia MD Signed: 10/29/2020 6:24 PM Workstation Name: [id number] Transcribed By: RT Dictated By: Kris Garcia MD Electronically Authenticated By: Kris Garcia MD Signed Date/Time: 10/29/201823 DD/ 21 TD/TT: Critical care attestation.: If time is entered above; I have spent that time in minutes in the direct care of this critically ill patient, excluding procedure time. ED Disposition Clinical Impression: Chronic left hip pain, Fall Disposition: DC-01 TO HOME OR SELFCARE Is pt being admited?: No Does the pt Need Aspirin: No Condition: Stable Instructions: Joint Pain, [id number] Additional Instructions: X-ray of left hip shows no acute fractures it does show that you have had a left hip replacement. You can take your ibuprofen and to follow-up with your primary care provider or logistic specialist. Prescriptions: Ibuprofen [Motrin 600 MG tab] 600 mg PO Q8H PRN #30 tablet PRN Reason: Pain Referrals: PRIMARY MD ADAM [Primary Care Provider] - 3-5 Days KRIS CAMPBELL MD [Staff Physician] - 3-5 Days
== END 2020-10-29 19:58 | disposition home or self-care (01) ==
LOC: ED 14:59
DX: M25.552 Pain in left hip (principal); G89.29 Other chronic pain; I10 Essential (primary) hypertension; I25.2 Old myocardial infarction; E11.9 Type 2 diabetes mellitus without complications; M19.91 Primary osteoarthritis, unspecified site; J45.909 Unspecified asthma, uncomplicated; F20.9 Schizophrenia, unspecified; Z79.1 Long term (current) use of non-steroidal anti-inflammatories (NSAID); Z79.899 Other long term (current) drug therapy; Z88.8 Allergy status to other drugs, medicaments and biological substances; W19.XXXA Unspecified fall, initial encounter; Y93.89 Activity, other specified; Y92.89 Other specified places as the place of occurrence of the external cause; Y99.8 Other external cause status

== ENCOUNTER 2021-08-11 08:32 | Emergency (ER) | payer MEDICARE ==
[2021-08-11 08:37] VITALS: BP 141/95
== END 2021-08-11 09:12 | disposition left against medical advice (07) ==
LOC: ED 08:32
DX: M25.559 Pain in unspecified hip (principal); Z53.21 Procedure and treatment not carried out due to patient leaving prior to being seen by health care provider

== ENCOUNTER 2021-10-09 20:58 | Emergency (ER) | payer MEDICARE ==
--- NOTE | 2021-10-09 22:17 | Emergency Department Report ---
ED Psych HPI - General Chief Complaint: Psych Stated Complaint: PSYCH Time Seen by Provider: 10/09/21 21:22 Source: patient Mode of arrival: Ambulatory - History of Present Illness Initial Comments: Patient presents secondary to suicidal ideation. He states that he is going to go buy a gun and blow his brains out. He admits that he was in a [place] psych unit and checked himself out on the second. He states that that was a mistake. He thought he was better. Apparently, he has not. He states that he has gotten worse since he left. He has had more more trouble. Has had trouble sleeping. He has had more more thoughts of suicide. He has not attempted to harm himself. He is not hearing voices that are telling him to harm himself. Patient states that his plan is to go buy a gun and shoot himself. He does not currently have access to a gun. He decided to come back here and check himself back in for help. - Related Data Home Medications Medication Instructions Recorded Confirmed Last Taken ARIPiprazole [Abilify TAB] 15 mg PO DAILY 09/07/15 11/20/15 09/07/15 Citalopram [celeXA] 40 mg PO QDAY 09/07/15 11/20/15 09/07/[address] [Robles Aiken] 75 mg PO QDAY 09/07/15 11/20/15 09/07/15 Hydroxyzine HCl [hydrOXYzine] 50 mg PO QDAY 09/07/15 11/20/15 09/07/15 Ipratropium (Nf) [Atrovent HFA 2 puff IH Q6HR PRN 09/07/15 11/20/15 09/07/15 17MCG/PUFF] Meloxicam 15 mg PO QDAY 09/07/15 11/20/15 09/07/15 Mirtazapine [Remeron] 15 mg PO QDAY 09/07/15 11/20/15 09/07/15 cloNIDine [Catapres] 0.2 mg PO BID 09/07/15 11/20/15 09/07/15 metFORMIN [Glucophage] 500 mg PO BID 09/07/15 11/20/15 09/07/15 methOCARBAMOL [Robaxin TAB] 500 mg PO QID 09/07/15 11/20/15 09/07/15 raNITIdine HCl [Zantac] 150 mg PO QDAY 09/07/15 11/20/15 09/07/15 traZODone [Desyrel] 150 mg PO QHS 09/07/15 11/20/15 09/07/15 Aspirin [Aspirin BABY CHEW TAB] 81 mg PO QDAY 11/20/15 11/20/15 Unknown Esomeprazole Magnesium [NexIUM] 40 mg PO BID 11/20/15 11/20/15 Unknown Ibuprofen [Motrin] 800 mg PO Q8HR PRN 11/20/15 11/20/15 Unknown Nitroglycerin [Nitrostat] 0.4 mg SL Q5M PRN 11/20/15 11/20/15 Unknown Oxycodone HCl/Acetaminophen 1 each PO Q6HR PRN 11/20/15 11/20/15 Unknown [Percocet 10/325 mg] Promethazine [Phenergan TAB] 25 mg PO Q8HR PRN 11/20/15 11/20/15 Unknown Quetiapine Fumarate [SEROquel XR] 400 mg PO QHS 11/20/15 11/20/15 Unknown Zolpidem (Nf) [Ambien] 10 mg PO BID 11/20/15 11/20/15 Unknown carisoprodoL [Soma] 350 mg PO TID 11/20/15 11/20/15 Unknown diphenhydrAMINE [Benadryl CAP] 50 mg PO Q8HR PRN 11/20/15 11/20/15 Unknown Previous Rx's Medication Instructions Recorded Last Taken Type lisinopriL [Zestril TAB] 5 mg PO QDAY #30 tablet 11/22/15 Unknown Rx Azithromycin 250 mg PO DAILY #6 tablet 11/10/18 Unknown Rx predniSONE [Deltasone] 40 mg PO QDAY 4 Days #8 tab 11/10/18 Unknown Rx Albuterol Sulfate [Ventolin HFA] 2 puff IH Q4H PRN #1 hfa.aer.ad 02/06/19 Unknown Rx Benzonatate [Tessalon Perles] 100 mg PO Q8HR PRN #30 capsule 02/06/19 Unknown Rx predniSONE [predniSONE 10mg (21 10 mg PO QDAY #1 tab.ds.pk 02/06/19 Unknown Rx tabs)] Budesonide/Formoterol Fumarate 10.2 gm IH BID #1 hfa.aer.ad 02/15/19 Unknown Rx [Symbicort 80-4.5 Mcg Inhaler] Cetirizine HCl [ZyrTEC] 10 mg PO QDAY #30 capsule 02/15/19 Unknown Rx Ondansetron [Zofran Odt] 4 mg PO Q8HR #12 tab.rapdis 02/15/19 Unknown Rx Ibuprofen [Motrin 800 MG tab] 800 mg PO Q8HR PRN #14 tablet 01/01/20 Unknown Rx Cyclobenzaprine [Flexeril 10 MG 10 mg PO Q8H PRN #21 01/12/20 Unknown Rx TAB] Ibuprofen [Motrin] 600 mg PO Q8H PRN #24 tablet 01/12/20 Unknown Rx Menthol/Camphor [[place] 1 applic TP BID #18 oint...g. 07/17/20 Unknown Rx Ointment] Naproxen [EC-Naprosyn] 500 mg PO BID PRN #14 tablet.dr 07/17/20 Unknown Rx Azithromycin [Zithromax Z-PAVITHRA] 0 mg PO DAILY #1 pack 07/22/20 Unknown Rx Benzonatate [Tessalon Perles] 100 mg PO Q8HR PRN #20 capsule 07/22/20 Unknown Rx Ibuprofen [Motrin 600 MG tab] 600 mg PO Q8H PRN #30 tablet 10/29/20 Unknown Rx Allergies Allergy/AdvReac Type Severity Reaction Status Date / Time prochlorperazine edisylate Allergy Swelling Verified 10/09/21 21:05 [From Compazine] prochlorperazine maleate Allergy Swelling Verified 10/09/21 21:05 [From Compazine] tramadol Allergy Swelling Verified 10/09/21 21:05 ED Review of Systems ROS: Stated complaint: PSYCH Other details as noted in HPI Comment: All other systems reviewed and negative Constitutional: denies: fever Eyes: denies: vision change ENT: denies: throat pain Respiratory: denies: cough Cardiovascular: denies: chest pain Endocrine: denies: unexplained weight loss Gastrointestinal: denies: abdominal pain Genitourinary: denies: dysuria Musculoskeletal: denies: back pain Skin: denies: rash Neurological: denies: headache Psychiatric: as per HPI Hematological/Lymphatic: denies: easy bruising ED Past Medical Hx - Past Medical History Hx Hypertension: Yes Hx Heart Attack/AMI: Yes (x2) Hx Diabetes: Yes Hx Arthritis: Yes Hx Psychiatric Treatment: Yes (Poehler, schizophrenia, alcohol dependence) Hx Asthma: Yes Additional medical history: hernia - Surgical History Additional Surgical History: left hip replacement, bilateral knee replacement. left testicle removed. HERNIA REPAIR X 4. BILATERAL ROTATOR CUFF REPAIR, - Family History Family history: hypertension - Social History Smoking Status: Never Smoker Substance Use Type: None - Medications Home Medications: Home Medications Medication Instructions Recorded Confirmed Last Taken Type ARIPiprazole [Abilify TAB] 15 mg PO DAILY 09/07/15 11/20/15 09/07/15 History Citalopram [celeXA] 40 mg PO QDAY 09/07/15 11/20/15 09/07/[address] [[place] Dr] 75 mg PO QDAY 09/07/15 11/20/15 09/07/15 History Hydroxyzine HCl [hydrOXYzine] 50 mg PO QDAY 09/07/15 11/20/15 09/07/15 History Ipratropium (Nf) [Atrovent HFA 2 puff IH Q6HR PRN 09/07/15 11/20/15 09/07/15 History 17MCG/PUFF] Meloxicam 15 mg PO QDAY 09/07/15 11/20/15 09/07/15 History Mirtazapine [Remeron] 15 mg PO QDAY 09/07/15 11/20/15 09/07/15 History cloNIDine [Catapres] 0.2 mg PO BID 09/07/15 11/20/15 09/07/15 History metFORMIN [Glucophage] 500 mg PO BID 09/07/15 11/20/15 09/07/15 History methOCARBAMOL [Robaxin TAB] 500 mg PO QID 09/07/15 11/20/15 09/07/15 History raNITIdine HCl [Zantac] 150 mg PO QDAY 09/07/15 11/20/15 09/07/15 History traZODone [Desyrel] 150 mg PO QHS 09/07/15 11/20/15 09/07/15 History Aspirin [Aspirin BABY CHEW TAB] 81 mg PO QDAY 11/20/15 11/20/15 Unknown History Esomeprazole Magnesium [NexIUM] 40 mg PO BID 11/20/15 11/20/15 Unknown History Ibuprofen [Motrin] 800 mg PO Q8HR PRN 11/20/15 11/20/15 Unknown History Nitroglycerin [Nitrostat] 0.4 mg SL Q5M PRN 11/20/15 11/20/15 Unknown History Oxycodone HCl/Acetaminophen 1 each PO Q6HR PRN 11/20/15 11/20/15 Unknown History [Percocet 10/325 mg] Promethazine [Phenergan TAB] 25 mg PO Q8HR PRN 11/20/15 11/20/15 Unknown History Quetiapine Fumarate [SEROquel XR] 400 mg PO QHS 11/20/15 11/20/15 Unknown History Zolpidem (Nf) [Ambien] 10 mg PO BID 11/20/15 11/20/15 Unknown History carisoprodoL [Soma] 350 mg PO TID 11/20/15 11/20/15 Unknown History diphenhydrAMINE [Benadryl CAP] 50 mg PO Q8HR PRN 11/20/15 11/20/15 Unknown History lisinopriL [Zestril TAB] 5 mg PO QDAY #30 tablet 11/22/15 Unknown Rx Azithromycin 250 mg PO DAILY #6 tablet 11/10/18 Unknown Rx predniSONE [Deltasone] 40 mg PO QDAY 4 Days #8 tab 11/10/18 Unknown Rx Albuterol Sulfate [Ventolin HFA] 2 puff IH Q4H PRN #1 hfa.aer.ad 02/06/19 Unknown Rx Benzonatate [Tessalon Perles] 100 mg PO Q8HR PRN #30 capsule 02/06/19 Unknown Rx predniSONE [predniSONE 10mg (21 10 mg PO QDAY #1 tab.ds.pk 02/06/19 Unknown Rx tabs)] Budesonide/Formoterol Fumarate 10.2 gm IH BID #1 hfa.aer.ad 02/15/19 Unknown Rx [Symbicort 80-4.5 Mcg Inhaler] Cetirizine HCl [ZyrTEC] 10 mg PO QDAY #30 capsule 02/15/19 Unknown Rx Ondansetron [Zofran Odt] 4 mg PO Q8HR #12 tab.rapdis 02/15/19 Unknown Rx Ibuprofen [Motrin 800 MG tab] 800 mg PO Q8HR PRN #14 tablet 01/01/20 Unknown Rx Cyclobenzaprine [Flexeril 10 MG 10 mg PO Q8H PRN #21 01/12/20 Unknown Rx TAB] Ibuprofen [Motrin] 600 mg PO Q8H PRN #24 tablet 01/12/20 Unknown Rx Menthol/Camphor [[place] 1 applic TP BID #18 oint...g. 07/17/20 Unknown Rx Ointment] Naproxen [EC-Naprosyn] 500 mg PO BID PRN #14 tablet.dr 07/17/20 Unknown Rx Azithromycin [Zithromax Z-PAVITHRA] 0 mg PO DAILY #1 pack 07/22/20 Unknown Rx Benzonatate [Tessalon Perles] 100 mg PO Q8HR PRN #20 capsule 07/22/20 Unknown Rx Ibuprofen [Motrin 600 MG tab] 600 mg PO Q8H PRN #30 tablet 10/29/20 Unknown Rx ED Physical Exam - General Limitations: No Limitations, Other (Pulse ox noted and normal) General appearance: alert, in no apparent distress, other (Frail) - Head Head exam: Present: atraumatic, normocephalic, normal inspection - Eye Eye exam: Present: normal appearance, EOMI. Absent: scleral icterus - ENT ENT exam: Present: normal external ear exam - Neck Neck exam: Present: normal inspection. Absent: meningismus - Respiratory Respiratory exam: Present: normal lung sounds bilaterally. Absent: respiratory distress - Cardiovascular Cardiovascular Exam: Present: regular rate, normal rhythm - GI/Abdominal GI/Abdominal exam: Present: soft. Absent: tenderness - Extremities Exam Extremities exam: Present: normal capillary refill - Back Exam Back exam: Absent: CVA tenderness (R), CVA tenderness (L) - Neurological Exam Neurological exam: Present: alert, oriented X3, CN II-XII intact, normal gait - Psychiatric Psychiatric exam: Present: normal affect, depressed, suicidal ideation - Skin Skin exam: Present: warm, dry ED Course Vital Signs 10/09/21 10/10/21 21:00 01:34 Temperature 98.1 F Pulse Rate 84 Respiratory 17 17 Rate Blood Pressure 104/72 [Right] O2 Sat by Pulse 97 97 Oximetry - Reevaluation(s) Reevaluation #1: 10/09/21 22:17 IV labs ordered. Old records reviewed. 1013 was completed Reevaluation #2: 10/10/21 02:26 Labs have been noted. Patient is medically cleared. We will await psychiatric disposition. ED Medical Decision Making - Lab Data Result diagrams: 10/09/21 23:48 10/09/21 23:48 - Medical Decision Making Patient presents with suicidal thoughts. He has a plan but no ability to act on the plan at this time. He was recently admitted. Patient will be observed here until psychiatric services can see the patient. He does not appear to be responding to extraneous stimuli. He is not delusional. Critical Care Time: No Critical care attestation.: If time is entered above; I have spent that time in minutes in the direct care of this critically ill patient, excluding procedure time. ED Disposition Clinical Impression: Suicidal ideation Disposition: 30 STILL A PATIENT Is pt being admited?: No Condition: Stable Referrals: PRIMARY CAREMD [Primary Care Provider] - 3-5 Days
[2021-10-09 23:46] LABS: Amphetamine Screen,Urine PRESUMPTIVE NEGATIVE; Benzodiazepines Screen,Urine PRESUMPTIVE NEGATIVE; Cannabinoid Screen,Urine PRESUMPTIVE NEGATIVE; Cocaine Screen,Urine PRESUMPTIVE POSITIVE; Methadone Screen,Urine PRESUMPTIVE NEGATIVE; Opiate Screen,Urine PRESUMPTIVE NEGATIVE
[2021-10-10 00:03] LABS: Hematocrit 36.6 % (35.5-45.6); Hemoglobin 12.3 gm/dl (11.8-15.2); Mean Corpuscular HGB Conc 34 % (32-34); Mean Corpuscular Volume 103 fl (84-94); Platelet Count 331 K/mm3 (140-440); Red Blood Count 3.54 M/mm3 (3.65-5.03); Red Cell Distribution Width 16.5 % (13.2-15.2)
[2021-10-10 00:26] LABS: Alanine Aminotransferase 21 units/L (7-56); Albumin 4.1 g/dL (3.9-5); Blood Urea Nitrogen 8 mg/dL (9-20); Calcium 8.6 mg/dL (8.4-10.2); Hemolysis Index 4
[2021-10-10 00:33] LABS: BUN/Creatinine Ratio 13
--- NOTE | 2021-10-10 12:39 | Consultation ---
History of Present Illness - Reason for Consult Consult date: 10/10/21 Reason for consult: voices, SI - History of Present Psychiatric Illness The patient was seen today. He was on [place] about a week ago. The patient says "I thought I was feeling better, but it was too soon." He endorses SI with a plan to shoot himself. He says voices are telling him to do it. He verbalizes feeling depressed. PAST PSYCHIATRIC HISTORY: Diagnoses: Bipolar, schizophrenia Suicide attempts or Self-harm behavior: Yes Prior psychiatric hospitalizations: Yes Substance Abuse history: Denies Previous psychiatric medications tried: seroquel Outpatient treatment: Denies PAST MEDICAL HISTORY: None reported or document Family Psychiatric History: None reported or documented SOCIAL HISTORY Marital Status: Single Living Arrangements: Lives alone Employment Status: Disabled Access to guns/weapons: Denies Education: History of Abuse: Denies Legal History: Denies REVIEW OF SYSTEMS Constitutional: Negative for weight loss ENT: Negative for stridor Respiratory: Negative for cough or hemoptysis All other systems reviewed and are negative MENTAL STATUS EXAMINATION General Appearance and Behavior: Age appropriate, good hygiene, wearing appropriate clothes. calm, cooperative Cooperation: cooperative Psychomotor Behavior: Psychomotor normal Mood: depressed Affect and affective range: congruent with stated mood Thought Process: illogical Thought Content: hallucinations Speech: Normal volume, Regular rate and rhythm, Suicidal Ideation: yes Homicidal Ideation: Denies Hallucinations: Auditory Delusions: none elicited Impulse Control: impaired Insight and Judgment: Limited Memory: limited Attention: Attentive Orientation: alert and oriented Assessment and Plan (1) Schizophrenia (2) Cocaine Dependence Treatment Plan 1013 Start Abilify 15mg po daily Start Effexor 25m po daily Sitter: refer to medical Medical: per primary Disposition: recommend acute psychiatric inpatient treatment Will follow. Thanks Case staffed with Dr. Bustillo Medications and Allergies Allergies Allergy/AdvReac Type Severity Reaction Status Date / Time prochlorperazine edisylate Allergy Swelling Verified 10/09/21 21:05 [From Compazine] prochlorperazine maleate Allergy Swelling Verified 10/09/21 21:05 [From Compazine] tramadol Allergy Swelling Verified 10/09/21 21:05 Home Medications Medication Instructions Recorded Confirmed Last Taken Type ARIPiprazole [Abilify TAB] 15 mg PO DAILY 09/07/15 11/20/1515 History Citalopram [celeXA] 40 mg PO QDAY 09/07/15 11/20/15 09/07/[address] [[place] Aiken] 75 mg PO QDAY 09/07/15 11/20/15 09/07/15 History Hydroxyzine HCl [hydrOXYzine] 50 mg PO QDAY 09/07/15 11/20/15 09/07/15 History Ipratropium (Nf) [Atrovent HFA 2 puff IH Q6HR PRN 09/07/15 11/20/15 09/07/15 History 17MCG/PUFF] Meloxicam 15 mg PO QDAY 09/07/15 11/20/15 09/07/15 History Mirtazapine [Remeron] 15 mg PO QDAY 09/07/15 11/20/15 09/07/15 History cloNIDine [Catapres] 0.2 mg PO BID 09/07/15 11/20/15 09/07/15 History metFORMIN [Glucophage] 500 mg PO BID 09/07/15 11/20/15 09/07/15 History methOCARBAMOL [Robaxin TAB] 500 mg PO QID 09/07/15 11/20/15 09/07/15 History raNITIdine HCl [Zantac] 150 mg PO QDAY 09/07/15 11/20/15 09/07/15 History traZODone [Desyrel] 150 mg PO QHS 09/07/15 11/20/15 09/07/15 History Aspirin [Aspirin BABY CHEW TAB] 81 mg PO QDAY 11/20/15 11/20/15 Unknown History Esomeprazole Magnesium [NexIUM] 40 mg PO BID 11/20/15 11/20/15 Unknown History Ibuprofen [Motrin] 800 mg PO Q8HR PRN 11/20/15 11/20/15 Unknown History Nitroglycerin [Nitrostat] 0.4 mg SL Q5M PRN 11/20/15 11/20/15 Unknown History Oxycodone HCl/Acetaminophen 1 each PO Q6HR PRN 11/20/15 11/20/15 Unknown History [Percocet 10/325 mg] Promethazine [Phenergan TAB] 25 mg PO Q8HR PRN 11/20/15 11/20/15 Unknown History Quetiapine Fumarate [SEROquel XR] 400 mg PO QHS 11/20/15 11/20/15 Unknown History Zolpidem (Nf) [Ambien] 10 mg PO BID 11/20/15 11/20/15 Unknown History carisoprodoL [Soma] 350 mg PO TID 11/20/15 11/20/15 Unknown History diphenhydrAMINE [Benadryl CAP] 50 mg PO Q8HR PRN 11/20/15 11/20/15 Unknown History lisinopriL [Zestril TAB] 5 mg PO QDAY #30 tablet 11/22/15 Unknown Rx Azithromycin 250 mg PO DAILY #6 tablet 11/10/18 Unknown Rx predniSONE [Deltasone] 40 mg PO QDAY 4 Days #8 tab 11/10/18 Unknown Rx Albuterol Sulfate [Ventolin HFA] 2 puff IH Q4H PRN #1 hfa.aer.ad 02/06/19 Unknown Rx Benzonatate [Tessalon Perles] 100 mg PO Q8HR PRN #30 capsule 02/06/19 Unknown Rx predniSONE [predniSONE 10mg (21 10 mg PO QDAY #1 tab.ds.pk 02/06/19 Unknown Rx tabs)] Budesonide/Formoterol Fumarate 10.2 gm IH BID #1 hfa.aer.ad 02/15/19 Unknown Rx [Symbicort 80-4.5 Mcg Inhaler] Cetirizine HCl [ZyrTEC] 10 mg PO QDAY #30 capsule 02/15/19 Unknown Rx Ondansetron [Zofran Odt] 4 mg PO Q8HR #12 tab.rapdis 02/15/19 Unknown Rx Ibuprofen [Motrin 800 MG tab] 800 mg PO Q8HR PRN #14 tablet 01/01/20 Unknown Rx Cyclobenzaprine [Flexeril 10 MG 10 mg PO Q8H PRN #21 01/12/20 Unknown Rx TAB] Ibuprofen [Motrin] 600 mg PO Q8H PRN #24 tablet 01/12/20 Unknown Rx Menthol/Camphor [[place] 1 applic TP BID #18 oint...g. 07/17/20 Unknown Rx Ointment] Naproxen [EC-Naprosyn] 500 mg PO BID PRN #14 tablet. 07/17/20 Unknown Rx Azithromycin [Zithromax Z-PAVITHRA] 0 mg PO DAILY #1 pack 07/22/20 Unknown Rx Benzonatate [Tessalon Perles] 100 mg PO Q8HR PRN #20 capsule 07/22/20 Unknown Rx Ibuprofen [Motrin 600 MG tab] 600 mg PO Q8H PRN #30 tablet 10/29/20 Unknown Rx Mental Status Exam - Vital signs Last Vital Signs Temp 98.6 F 10/10/21 10:31 Pulse 97 H 10/10/21 10:31 Resp 16 10/10/21 10:31 BP 158/100 10/10/21 10:31 Pulse Ox 97 10/10/21 10:31 Results Result Diagrams: 10/09/21 23:48 10/09/21 23:48 Abnormal lab results 10/09/21 10/09/21 10/09/21 Range/Units 23:48 23:48 23:48 RBC 3.54 L (3.65-5.03) M/mm3 MCV 103 H (84-94) fl MCH 35 H (28-32) pg RDW 16.5 H (13.2-15.2) % Sodium 134 L (137-145) mmol/L Carbon Dioxide 20 L (22-30) mmol/L BUN 8 L (9-20) mg/dL Creatinine 0.6 L (0.8-1.3) mg/dL Plasma/Serum Alcohol 0.15 H (0-0.07) % All other labs normal.
--- NOTE | 2021-10-10 12:46 | Event Note ---
Mental health team recommends acute psychiatric inpatient treatment. Patient is medically clear for psychiatric care
[2021-10-10] MEDS ORDERED: ARIPiprazole 15 MG TAB PO SCH (13:00)
[2021-10-10] MEDS ORDERED: VENLAFAXINE 25 MG TAB PO SCH (13:00)
[2021-10-10 20:09] VITALS: BP 156/100
== END 2021-10-11 00:51 | disposition still patient (30) ==
LOC: EEVIPCON 20:58 → ED 20:58
DX: R45.851 Suicidal ideations (principal); I10 Essential (primary) hypertension; Z20.822 Contact with and (suspected) exposure to COVID-19; E11.9 Type 2 diabetes mellitus without complications; M19.90 Unspecified osteoarthritis, unspecified site; J45.909 Unspecified asthma, uncomplicated; Z88.8 Allergy status to other drugs, medicaments and biological substances; Z88.6 Allergy status to analgesic agent; Z79.899 Other long term (current) drug therapy
CPT/HCPCS: 36415; 80053; 80307; 85027; 99285; U0003; 80320; G0480

== ENCOUNTER 2022-01-17 20:00 | Emergency (ER) | payer MEDICARE | END 2022-01-18 19:00 | disposition home or self-care (01) | LOC: ED 20:00 | DX: R11.10 Vomiting, unspecified (principal); Z53.21 Procedure and treatment not carried out due to patient leaving prior to being seen by health care provider ==

== ENCOUNTER 2022-02-12 22:16 | Emergency (ER) | payer MEDICARE ==
[2022-02-13 00:11] LABS: Basophils # (Auto) 0.1 K/mm3 (0.0-0.1); Basophils % (Auto) 1.1 % (0.0-1.8); Eosinophils # (Auto) 0.1 K/mm3 (0.0-0.4); Eosinophils % (Auto) 1.8 % (0.0-4.3); Hematocrit 36.8 % (35.5-45.6); Lymphocytes # (Auto) 1.3 K/mm3 (1.2-5.4); Mean Corpuscular HGB Conc 33 % (32-34); Mean Corpuscular Volume 93 fl (84-94); Monocytes # (Auto) 0.6 K/mm3 (0.0-0.8); Monocytes % (Auto) 8.4 % (0.0-7.3); Platelet Count 255 K/mm3 (140-440); Red Blood Count 3.96 M/mm3 (3.65-5.03); Red Cell Distribution Width 22.3 % (13.2-15.2)
[2022-02-13 00:13] LABS: Bilirubin,Urine NEG (Negative); Blood,Urine NEG (Negative); Color,Urine Yellow (Yellow); Mucus,Urine 1+ /HPF; Protein,Urine <15 mg/dL mg/dL (Negative); RBC,Urine < 1.0 /HPF (0.0-6.0); WBC,Urine < 1.0 /HPF (0.0-6.0)
[2022-02-13 00:20] LABS: Amphetamine Screen,Urine PRESUMPTIVE NEGATIVE; Benzodiazepines Screen,Urine PRESUMPTIVE NEGATIVE; Cannabinoid Screen,Urine PRESUMPTIVE NEGATIVE; Cocaine Screen,Urine PRESUMPTIVE POSITIVE; Methadone Screen,Urine PRESUMPTIVE NEGATIVE; Opiate Screen,Urine PRESUMPTIVE NEGATIVE
[2022-02-13 00:36] LABS: BUN/Creatinine Ratio 23; Blood Urea Nitrogen 18 mg/dL (9-20); Calcium 8.6 mg/dL (8.4-10.2); Hemolysis Index 1
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
[2022-02-13 07:53] VITALS: BP 121/89
--- NOTE | 2022-02-13 10:43 | Consultation ---
History of Present Illness - Reason for Consult Consult date: 02/13/22 Reason for consult: SI - History of Present Psychiatric Illness The patient was seen today. He says he is hearing voices that is "driving him crazy." The patient says the voices are telling him to get a gun and shoot himself. He says he's been off his meds for a couple of weeks. The patient says he takes seroquel, trazodone, ambien and Invega pills. He also says he uses crack. PAST PSYCHIATRIC HISTORY: Diagnoses: Bipolar, schizophrenia Suicide attempts or Self-harm behavior: Yes Prior psychiatric hospitalizations: Yes Substance Abuse history: Crack Previous psychiatric medications tried: seroquel, trazodone, ambien, invega pills Outpatient treatment: Denies PAST MEDICAL HISTORY: None reported or document Family Psychiatric History: None reported or documented SOCIAL HISTORY Marital Status: Single Living Arrangements: Lives with someone Employment Status: Disabled Access to guns/weapons: Denies Education: History of Abuse: Denies Legal History: Denies REVIEW OF SYSTEMS Constitutional: Negative for weight loss ENT: Negative for stridor Respiratory: Negative for cough or hemoptysis All other systems reviewed and are negative MENTAL STATUS EXAMINATION General Appearance and Behavior: Age appropriate, good hygiene, wearing a ppropriate clothes. calm, cooperative Cooperation: cooperative Psychomotor Behavior: Psychomotor normal Mood: depressed Affect and affective range: congruent with stated mood Thought Process: illogical Thought Content: hallucinations, SI Speech: Normal volume, Regular rate and rhythm Suicidal Ideation: yes Homicidal Ideation: Denies Hallucinations: Auditory Delusions: none elicited Impulse Control: impaired Insight and Judgment: Limited Memory: limited Attention: Attentive Orientation: alert and oriented Assessment and Plan (1) Schizophrenia (2) Cocaine Dependence Treatment Plan 1013 Seroquel 200mg po qhs Invega 3mg po daily Lexapro 5mg po daily Trazodone 150mg po qhs Sitter: refer to medical Medical: per primary Disposition: recommend acute psychiatric inpatient treatment Will follow. Thanks Case staffed with Dr. Bustillo Medications and Allergies Allergies Allergy/AdvReac Type Severity Reaction Status Date / Time prochlorperazine Allergy Rash Verified 10/18/21 09:09 [From Compazine] prochlorperazine edisylate Allergy Swelling Verified 10/18/21 09:09 [From Compazine] prochlorperazine maleate Allergy Swelling Verified 10/18/21 09:09 [From Compazine] tramadol Allergy Swelling Verified 10/18/21 09:09 Home Medications Medication Instructions Recorded Confirmed Last Taken Type ARIPiprazole [Abilify TAB] 15 mg PO DAILY 09/07/15 11/20/15 09/07/15 History Citalopram [celeXA] 40 mg PO QDAY 09/07/15 11/20/15 09/07/[address] [Robles Aiken] 75 mg PO QDAY 09/07/15 11/20/15 09/07/15 History Hydroxyzine HCl [hydrOXYzine] 50 mg PO QDAY 09/07/15 11/20/15 09/07/15 History Ipratropium (Nf) [Atrovent HFA 2 puff IH Q6HR PRN 09/07/15 11/20/15 09/07/15 History 17MCG/PUFF] Meloxicam 15 mg PO QDAY 09/07/15 11/20/15 09/07/15 History Mirtazapine [Remeron] 15 mg PO QDAY 09/07/15 11/20/15 09/07/15 History cloNIDine [Catapres] 0.2 mg PO BID 09/07/15 11/20/15 09/07/15 History metFORMIN [Glucophage] 500 mg PO BID 09/07/15 11/20/15 09/07/15 History methOCARBAMOL [Robaxin TAB] 500 mg PO QID 09/07/15 11/20/15 09/07/15 History raNITIdine HCl [Zantac] 150 mg PO QDAY 09/07/15 11/20/15 09/07/15 History traZODone [Desyrel] 150 mg PO QHS 09/07/15 11/20/15 09/07/15 History Aspirin [Aspirin BABY CHEW TAB] 81 mg PO QDAY 11/20/15 11/20/15 Unknown History Esomeprazole Magnesium [NexIUM] 40 mg PO BID 11/20/15 11/20/15 Unknown History Ibuprofen [Motrin] 800 mg PO Q8HR PRN 11/20/15 11/20/15 Unknown History Nitroglycerin [Nitrostat] 0.4 mg SL Q5M PRN 11/20/15 11/20/15 Unknown History Oxycodone HCl/Acetaminophen 1 each PO Q6HR PRN 11/20/15 11/20/15 Unknown History [Percocet 10/325 mg] Promethazine [Phenergan TAB] 25 mg PO Q8HR PRN 11/20/15 11/20/15 Unknown History Quetiapine Fumarate [SEROquel XR] 400 mg PO QHS 11/20/15 11/20/15 Unknown History Zolpidem (Nf) [Ambien] 10 mg PO BID 11/20/15 11/20/15 Unknown History carisoprodoL [Soma] 350 mg PO TID 11/20/15 11/20/15 Unknown History diphenhydrAMINE [Benadryl CAP] 50 mg PO Q8HR PRN 11/20/15 11/20/15 Unknown History lisinopriL [Zestril TAB] 5 mg PO QDAY #30 tablet 11/22/15 Unknown Rx Azithromycin 250 mg PO DAILY #6 tablet 11/10/18 Unknown Rx predniSONE [Deltasone] 40 mg PO QDAY 4 Days #8 tab 11/10/18 Unknown Rx Albuterol Sulfate [Ventolin HFA] 2 puff IH Q4H PRN #1 hfa.aer.ad 02/06/19 Unknown Rx Benzonatate [Tessalon Perles] 100 mg PO Q8HR PRN #30 capsule 02/06/19 Unknown Rx predniSONE [predniSONE 10mg (21 10 mg PO QDAY #1 tab.ds.pk 02/06/19 Unknown Rx tabs)] Budesonide/Formoterol Fumarate 10.2 gm IH BID #1 hfa.aer.ad 02/15/19 Unknown Rx [Symbicort 80-4.5 Mcg Inhaler] Cetirizine HCl [ZyrTEC] 10 mg PO QDAY #30 capsule 02/15/19 Unknown Rx Ondansetron [Zofran Odt] 4 mg PO Q8HR #12 tab.rapdis 02/15/19 Unknown Rx Ibuprofen [Motrin 800 MG tab] 800 mg PO Q8HR PRN #14 tablet 01/01/20 Unknown Rx Cyclobenzaprine [Flexeril 10 MG 10 mg PO Q8H PRN #21 01/12/20 Unknown Rx TAB] Ibuprofen [Motrin] 600 mg PO Q8H PRN #24 tablet 01/12/20 Unknown Rx Menthol/Camphor [[place] 1 applic TP BID #18 oint...g. 07/17/20 Unknown Rx Ointment] Naproxen [EC-Naprosyn] 500 mg PO BID PRN #14 tablet. 07/17/20 Unknown Rx Azithromycin [Zithromax Z-PAVITHRA] 0 mg PO DAILY #1 pack 07/22/20 Unknown Rx Benzonatate [Tessalon Perles] 100 mg PO Q8HR PRN #20 capsule 07/22/20 Unknown Rx Ibuprofen [Motrin 600 MG tab] 600 mg PO Q8H PRN #30 tablet 10/29/20 Unknown Rx Amlodipine Besylate [Norvasc] 5 mg PO DAILY 09/27/21 09/27/21 Unknown History AtorvaSTATin [Lipitor] 20 mg PO QHS 09/27/21 09/27/21 Unknown History Fluticasone Propion/Salmeterol 1 inhalation INNOSTRIL BID 09/27/21 09/27/21 Unknown History [Fluticasone-Salmeterol 500-50] Meloxicam [Mobic] 7.5 mg PO QDAY 09/27/21 09/27/21 Unknown History metFORMIN [Glucophage] 500 mg PO BID 09/27/21 09/27/21 Unknown History Arformoterol Nebu [Brovana Nebu] 15 mcg IH Q12HRT ml 10/04/21 Unknown Rx Budesonide [Pulmicort Respules] 1 mg IH Q12HRT nebu 10/04/21 Unknown Rx Divalproex [Raissa Aiken] 125 mg PO BID 30 Days #60 tablet 10/04/21 Unknown Rx Gabapentin 300 mg PO BID 30 Days #60 capsule 10/04/21 Unknown Rx Ibuprofen [Motrin 800 MG tab] 800 mg PO Q8H PRN tablet 10/04/21 Unknown Rx QUEtiapine [SEROquel] 25 mg PO 1200 30 Days #30 tablet 10/04/21 Unknown Rx QUEtiapine [SEROquel] 25 mg PO QAM@0800 30 Days #30 10/04/21 Unknown Rx tablet QUEtiapine [SEROquel] 400 mg PO HS 30 Days #30 tablet 10/04/21 Unknown Rx Mental Status Exam - Vital signs Last Vital Signs Temp 98.2 F 02/13/22 07:52 Pulse 109 H 02/13/22 07:52 Resp 18 02/13/22 07:52 BP 121/89 02/13/22 07:52 Pulse Ox 98 02/13/22 07:52 Results Result Diagrams: 02/12/22 23:59 02/12/22 23:59 Abnormal lab results 02/12/22 02/12/22 02/12/22 Range/Units 23:59 23:59 23:59 RDW (13.2-15.2) % Thomas % (Auto) (0.0-7.3) % Seg Neutrophils % (40.0-70.0) % Carbon Dioxide 21 L (22-30) mmol/L Glucose 124 H (75-100) mg/dL Salicylates < 0.3 L (2.8-20.0) mg/dL Acetaminophen 5.0 L (10.0-30.0) ug/mL 02/12/22 Range/Units 23:59 RDW 22.3 H (13.2-15.2) % Thomas % (Auto) 8.4 H (0.0-7.3) % Seg Neutrophils % 70.7 H (40.0-70.0) % Carbon Dioxide (22-30) mmol/L Glucose (75-100) mg/dL Salicylates (2.8-20.0) mg/dL Acetaminophen (10.0-30.0) ug/mL All other labs normal.
[2022-02-13] MEDS ORDERED: PALIPERIDONE ER 3 MG TAB PO SCH (11:00)
[2022-02-13] MEDS ORDERED: ESCITALOPRAM 10 MG TAB PO SCH (11:00)
[2022-02-13] MEDS ORDERED: traZODone 50 MG TAB PO SCH (22:00)
[2022-02-13] MEDS ORDERED: QUEtiapine 200 MG TAB PO SCH (22:00)
== END 2022-02-13 17:00 | disposition admitted as inpatient to this hospital (09) ==
LOC: ED 22:16
DX: R45.851 Suicidal ideations (principal); R44.1 Visual hallucinations; I10 Essential (primary) hypertension; I21.9 Acute myocardial infarction, unspecified; E11.9 Type 2 diabetes mellitus without complications; M19.90 Unspecified osteoarthritis, unspecified site; J45.909 Unspecified asthma, uncomplicated; Z98.890 Other specified postprocedural states; Z79.899 Other long term (current) drug therapy; Z91.09 Other allergy status, other than to drugs and biological substances
CPT/HCPCS: 36415; 80048; 80307; 80320; 81001; 85025; G0480; U0003

== ENCOUNTER 2022-02-13 15:10 | Inpatient (IN) | payer MEDICARE ==
--- NOTE | 2022-02-13 20:51 | Consultation ---
History of Present Illness - Reason for Consult Consult date: 02/13/22 medical management Requesting physician: NORY DEJESUS - History of Present Illness 61 YO Male with Vascular Dementia with Behavioral Disturbance, Cerebral Atherosclerosis, Malnutrition, HTN, Schizophrenia, Psychosis admitted to [facility] for psychiatric stabilization. Patient seen and evaluated in the recreation room. Patient denies fever, chills, chest pain, palpitation, productive cough, skin rash, recent contact, known exposure to COVID-19. No reported nursing events. Patient is at baseline level of cognition and function. Past History Past Medical History: hypertension, other (See HPI) Past Surgical History: No surgical history, Other (Reviewed) Social history: single. denies: smoking, alcohol abuse, prescription drug abuse Family history: hypertension Medications and Allergies Allergies Allergy/AdvReac Type Severity Reaction Status Date / Time prochlorperazine Allergy Rash Verified 10/18/21 09:09 [From Compazine] prochlorperazine edisylate Allergy Swelling Verified 10/18/21 09:09 [From Compazine] prochlorperazine maleate Allergy Swelling Verified 10/18/21 09:09 [From Compazine] tramadol Allergy Swelling Verified 10/18/21 09:09 Home Medications Medication Instructions Recorded Confirmed Last Taken Type ARIPiprazole [Abilify TAB] 15 mg PO DAILY 09/07/15 11/20/15 09/07/15 History Citalopram [celeXA] 40 mg PO QDAY 09/07/15 11/20/15 09/07/[address] [Voltaren Dr] 75 mg PO QDAY 09/07/15 11/20/15 09/07/15 History Hydroxyzine HCl [hydrOXYzine] 50 mg PO QDAY 09/07/15 11/20/15 09/07/15 History Ipratropium (Nf) [Atrovent HFA 2 puff IH Q6HR PRN 09/07/15 11/20/15 09/07/15 History 17MCG/PUFF] Meloxicam 15 mg PO QDAY 09/07/15 11/20/15 09/07/15 History Mirtazapine [Remeron] 15 mg PO QDAY 09/07/15 11/20/15 09/07/15 History cloNIDine [Catapres] 0.2 mg PO BID 09/07/15 11/20/15 09/07/15 History metFORMIN [Glucophage] 500 mg PO BID 09/07/15 11/20/15 09/07/15 History methOCARBAMOL [Robaxin TAB] 500 mg PO QID 09/07/15 11/20/15 09/07/15 History raNITIdine HCl [Zantac] 150 mg PO QDAY 09/07/15 11/20/15 09/07/15 History traZODone [Desyrel] 150 mg PO QHS 09/07/15 11/20/15 09/07/15 History Aspirin [Aspirin BABY CHEW TAB] 81 mg PO QDAY 11/20/15 11/20/15 Unknown History Esomeprazole Magnesium [NexIUM] 40 mg PO BID 11/20/15 11/20/15 Unknown History Ibuprofen [Motrin] 800 mg PO Q8HR PRN 11/20/15 11/20/15 Unknown History Nitroglycerin [Nitrostat] 0.4 mg SL Q5M PRN 11/20/15 11/20/15 Unknown History Oxycodone HCl/Acetaminophen 1 each PO Q6HR PRN 11/20/15 11/20/15 Unknown History [Percocet 10/325 mg] Promethazine [Phenergan TAB] 25 mg PO Q8HR PRN 11/20/15 11/20/15 Unknown History Quetiapine Fumarate [SEROquel XR] 400 mg PO QHS 11/20/15 11/20/15 Unknown History Zolpidem (Nf) [Ambien] 10 mg PO BID 11/20/15 11/20/15 Unknown History carisoprodoL [Soma] 350 mg PO TID 11/20/15 11/20/15 Unknown History diphenhydrAMINE [Benadryl CAP] 50 mg PO Q8HR PRN 11/20/15 11/20/15 Unknown History lisinopriL [Zestril TAB] 5 mg PO QDAY #30 tablet 11/22/15 Unknown Rx Azithromycin 250 mg PO DAILY #6 tablet 11/10/18 Unknown Rx predniSONE [Deltasone] 40 mg PO QDAY 4 Days #8 tab 11/10/18 Unknown Rx Albuterol Sulfate [Ventolin HFA] 2 puff IH Q4H PRN #1 hfa.aer.ad 02/06/19 Unkno wn Rx Benzonatate [Tessalon Perles] 100 mg PO Q8HR PRN #30 capsule 02/06/19 Unknown Rx predniSONE [predniSONE 10mg (21 10 mg PO QDAY #1 tab.ds.pk 02/06/19 Unknown Rx tabs)] Budesonide/Formoterol Fumarate 10.2 gm IH BID #1 hfa.aer.ad 02/15/19 Unknown Rx [Symbicort 80-4.5 Mcg Inhaler] Cetirizine HCl [ZyrTEC] 10 mg PO QDAY #30 capsule 02/15/19 Unknown Rx Ondansetron [Zofran Odt] 4 mg PO Q8HR #12 tab.rapdis 02/15/19 Unknown Rx Ibuprofen [Motrin 800 MG tab] 800 mg PO Q8HR PRN #14 tablet 01/01/20 Unknown Rx Cyclobenzaprine [Flexeril 10 MG 10 mg PO Q8H PRN #21 01/12/20 Unknown Rx TAB] Ibuprofen [Motrin] 600 mg PO Q8H PRN #24 tablet 01/12/20 Unknown Rx Menthol/Camphor [[place] 1 applic TP BID #18 oint...g. 07/17/20 Unknown Rx Ointment] Naproxen [EC-Naprosyn] 500 mg PO BID PRN #14 tablet. 07/17/20 Unknown Rx Azithromycin [Zithromax Z-PAVITHRA] 0 mg PO DAILY #1 pack 07/22/20 Unknown Rx Benzonatate [Tessalon Perles] 100 mg PO Q8HR PRN #20 capsule 07/22/20 Unknown Rx Ibuprofen [Motrin 600 MG tab] 600 mg PO Q8H PRN #30 tablet 10/29/20 Unknown Rx Amlodipine Besylate [Norvasc] 5 mg PO DAILY 09/27/21 09/27/21 Unknown History AtorvaSTATin [Lipitor] 20 mg PO QHS 09/27/21 09/27/21 Unknown History Fluticasone Propion/Salmeterol 1 inhalation INNOSTRIL BID 09/27/21 09/27/21 Unknown History [Fluticasone-Salmeterol 500-50] Meloxicam [Mobic] 7.5 mg PO QDAY 09/27/21 09/27/21 Unknown History metFORMIN [Glucophage] 500 mg PO BID 09/27/21 09/27/21 Unknown History Arformoterol Nebu [Brovana Nebu] 15 mcg IH Q12HRT ml 10/04/21 Unknown Rx Budesonide [Pulmicort Respules] 1 mg IH Q12HRT nebu 10/04/[address] [Depakote Dr] 125 mg PO BID 30 Days #60 tablet 10/04/21 Unknown Rx Gabapentin 300 mg PO BID 30 Days #60 capsule 10/04/21 Unknown Rx Ibuprofen [Motrin 800 MG tab] 800 mg PO Q8H PRN tablet 10/04/21 Unknown Rx QUEtiapine [SEROquel] 25 mg PO 1200 30 Days #30 tablet 10/04/21 Unknown Rx QUEtiapine [SEROquel] 25 mg PO QAM@0800 30 Days #30 10/04/21 Unknown Rx tablet QUEtiapine [SEROquel] 400 mg PO HS 30 Days #30 tablet 10/04/21 Unknown Rx Active Meds: Active Medications Quetiapine Fumarate (Quetiapine 200 Mg Tab) 400 mg PO QHS [facility] Review of Systems Constitutional: no weight loss, no weight gain, no fever, no chills Ears, nose, mouth and throat: no ear pain, no tinnitis, no decreased hearing, no nose pain, no nasal discharge Cardiovascular: no chest pain, no palpitations, no edema Respiratory: no cough, no excessive sputum, no shortness of breath Gastrointestinal: no abdominal pain, no nausea, no diarrhea, no constipation, no change in bowel habits Genitourinary Male: no hematuria, no flank pain, no discharge, no urinary frequency Rectal: no pain, no incontinence, no bleeding Musculoskeletal: no neck stiffness, no neck pain, no arm numbness/tingling, no shooting leg pain, no leg numbness/tingling Integumentary: no rash, no pruritis, no redness, no sores, no wounds, no jaundice, no boils Neurological: no head injury, no paralysis, no parathesias, no seizures, no syncope, no ataxia Psychiatric: sadness/tearfullness, mood swings, no sleep disturbances Endocrine: no cold intolerance, no polyphagia, no excessive thirst, no polydipsia, no polyuria, no nocturia Hematologic/Lymphatic: no easy bruising, no easy bleeding, no lymphedema Allergic/Immunologic: no urticaria, no allergic rhinitis, no wheezing, no persistent infections Exam - Constitutional General appearance: Present: no acute distress, well-nourished - EENT Eyes: Present: PERRL ENT: hearing intact, clear oral mucosa - Neck Neck: Present: supple, normal ROM - Respiratory Respiratory effort: normal Respiratory: bilateral: CTA - Cardiovascular Heart Sounds: Present: S1 & S2. Absent: rub, click - Extremities Extremities: pulses symmetrical, No edema Peripheral Pulses: within normal limits - Abdominal General gastrointestinal: Present: soft, non-tender, non-distended, normal bowel sounds Male genitourinary: Present: normal - Integumentary Integumentary: Present: clear, warm, dry - Musculoskeletal Musculoskeletal: gait normal, strength equal bilaterally - Psychiatric Psychiatric: cooperative - Neurologic Neurologic: CNII-XII intact, moves all extremities Results - Labs CBC & Chem 7: 02/13/22 23:31 02/13/22 23:31 Assessment and Plan - Patient Problems (1) Vascular dementia with behavioral disturbance Current Visit: Yes Status: Acute Plan to address problem: Verbal prompting, verbal redirection, benzodiazepine therapy as clinically indicated. (2) Cerebral atherosclerosis Current Visit: Yes Status: Acute Plan to address problem: Risk factor reduction, antiplatelet therapy as clinical indicated. (3) Schizophrenia Current Visit: Yes Status: Acute Qualifiers: Schizophrenia type: unspecified Qualified Code(s): F20.9 - Schizophrenia, unspecified Plan to address problem: Continue medical management. (4) Psychosis Current Visit: Yes Status: Acute Qualifiers: Schizophrenia type: unspecified Plan to address problem: Continue medical management. (5) Malnutrition Current Visit: Yes Status: Acute Qualifiers: Protein-calorie malnutrition severity: moderate Plan to address problem: Increase protein intake, dietary supplementation. (6) Advance care planning Current Visit: Yes Status: Acute Plan to address problem: Disease education conducted, care plan discussed, diagnoses discussed, prognosis discussed, patient is full code. Patient acknowledges understanding and agreement with care plan, +30 minutes.
[2022-02-13] MEDS ORDERED: CYCLOBENZAPRINE 10 MG TAB PO PRN (20:52)
[2022-02-13] MEDS: cloNIDine 0.2 MG TAB PO SCH (21:16)
[2022-02-13] MEDS ORDERED: QUEtiapine 200 MG TAB PO SCH (22:00)
[2022-02-13 23:53] LABS: Basophils % (Auto) 0.8 % (0.0-1.8); Eosinophils # (Auto) 0.1 K/mm3 (0.0-0.4); Eosinophils % (Auto) 2.6 % (0.0-4.3); Hematocrit 33.5 % (35.5-45.6); Hemoglobin 10.7 gm/dl (11.8-15.2); Lymphocytes # (Auto) 1.2 K/mm3 (1.2-5.4); Lymphocytes % (Auto) 28.1 % (13.4-35.0); Mean Corpuscular HGB Conc 32 % (32-34); Mean Corpuscular Volume 93 fl (84-94); Monocytes # (Auto) 0.4 K/mm3 (0.0-0.8); Monocytes % (Auto) 10.6 % (0.0-7.3); Platelet Count 241 K/mm3 (140-440); Red Blood Count 3.59 M/mm3 (3.65-5.03)
[2022-02-14 00:04] LABS: Red Cell Distribution Width 22.2 % (13.2-15.2)
[2022-02-14 01:30] LABS: Alanine Aminotransferase 16 units/L (7-56); Albumin 3.5 g/dL (3.9-5); Blood Urea Nitrogen 22 mg/dL (9-20); Calcium 8.2 mg/dL (8.4-10.2); Hemolysis Index 6
[2022-02-14 01:31] LABS: BUN/Creatinine Ratio 37
[2022-02-14 02:07] LABS: Chol/HDL Ratio 2.86 %; HDL Cholesterol 37 mg/dL (40-59); LDL Cholesterol,Direct 62 mg/dL (50-130)
[2022-02-14] MEDS: CARISOPRODOL 350 MG TAB PO SCH ×3 (08:28→21:05)
--- NOTE | 2022-02-14 08:34 | History and Physical Report ---
GP History & Physical - History of Present Illness Date of admission: 02/13/22 Date of Examination: 02/14/22 Reason for Admission: Danger to self, Failure of Outpatient Treatment, Severe anxiety/depression History of Present Illness: ER: The patient was seen today. He says he is hearing voices that is "driving him crazy." The patient says the voices are telling him to get a gun and shoot himself. He says he's been off his meds for a couple of weeks. The patient says he takes seroquel, trazodone, ambien and Invega pills. He also says he uses crack. The patient was seen today. I first saw him in the ER. Then he presented with SI with a plan to shoot himself. He still endorses SI, but denies a plan at this time. He says "I can't get no gun." The patient does say his is not feeling good, and verbalizes feeling depressed. He says he is having visual hallucinations of "." PAST PSYCHIATRIC HISTORY: Diagnoses: Bipolar, schizophrenia Suicide attempts or Self-harm behavior: Yes Prior psychiatric hospitalizations: Yes Substance Abuse history: Crack Previous psychiatric medications tried: seroquel, trazodone, ambien, invega pills Outpatient treatment: Denies PAST MEDICAL HISTORY: None reported or document Family Psychiatric History: None reported or documented SOCIAL HISTORY Marital Status: Single Living Arrangements: Lives with someone Employment Status: Disabled Access to guns/weapons: Denies Education: History of Abuse: Denies Legal History: Denies REVIEW OF SYSTEMS Constitutional: Negative for weight loss ENT: Negative for stridor Respiratory: Negative for cough or hemoptysis All other systems reviewed and are negative MENTAL STATUS EXAMINATION General Appearance and Behavior: Age appropriate, good hygiene, wearing appropriate clothes. calm, cooperative Cooperation: cooperative Psychomotor Behavior: Psychomotor normal Mood: depressed Affect and affective range: congruent with stated mood Thought Process: illogical Thought Content: hallucinations, SI Speech: Normal volume, Regular rate and rhythm Suicidal Ideation: yes Homicidal Ideation: Denies Hallucinations: Visual Delusions: none elicited Impulse Control: impaired Insight and Judgment: Limited Memory: limited Attention: Attentive Orientation: alert and oriented Assessment and Plan (1) Schizophrenia (2) Cocaine Dependence Treatment Plan Patient admitted for inpatient psychiatric evaluation, medication adjustment and close monitoring The patient's behavior, mood, sleep and appetite will be closely monitored. Patient enrolled in individual and group therapeutic sessions and encouraged to attend. Patient provided with a safe and structured environment. Patient's physical health needs will be addressed by the Hospitalist. Hospitalist Consulted Labs including CBC, CMP, Lipid profile and Hemoglobin A1C levels ordered for baseline reference Social Assessment will be completed and the Shoe Puller will work with patient and family to ensure a suitable and safe disposition Medication adjustment will be made as clinically indicated Restarted Home Invega 3mg po daily Start Lexapro 5mg po daily Continue home meds Usual Wellness [employer]/Preservation: - Start Trazodone 50 mg po QHS & 50 mg po QHS PRN between 10 PM & 2 AM for insomnia - Start Melatonin 5 mg po QHS to promote circadian rhythm The patient agreed on the treatment plan, understood the risk, benefit, alternative treatment, potential consequence of no treatment, and gave informed consent. Estimated days: 5 Post hospital care: primary care provider, psychiatric provider Case staffed with Dr. Bustillo Legal Status: Voluntary Reaction to Hospitalization: Accepting Medications and Allergies Allergies Allergy/AdvReac Type Severity Reaction Status Date / Time prochlorperazine Allergy Rash Verified 10/18/21 09:09 [From Compazine] prochlorperazine edisylate Allergy Swelling Verified 10/18/21 09:09 [From Compazine] prochlorperazine maleate Allergy Swelling Verified 10/18/21 09:09 [From Compazine] tramadol Allergy Swelling Verified 10/18/21 09:09 Home Medications Medication Instructions Recorded Confirmed Last Taken Type ARIPiprazole [Abilify TAB] 15 mg PO DAILY 09/07/15 11/20/15 09/07/15 History Citalopram [celeXA] 40 mg PO QDAY 09/07/15 11/20/15 09/07/[address] [Voltjosias Dr] 75 mg PO QDAY 09/07/15 11/20/15 09/07/15 History Hydroxyzine HCl [hydrOXYzine] 50 mg PO QDAY 09/07/15 11/20/15 09/07/15 History Ipratropium (Nf) [Atrovent HFA 2 puff IH Q6HR PRN 09/07/15 11/20/15 09/07/15 History 17MCG/PUFF] Meloxicam 15 mg PO QDAY 09/07/15 11/20/15 09/07/15 History Mirtazapine [Remeron] 15 mg PO QDAY 09/07/15 11/20/15 09/07/15 History cloNIDine [Catapres] 0.2 mg PO BID 09/07/15 11/20/15 09/07/15 History metFORMIN [Glucophage] 500 mg PO BID 09/07/15 11/20/15 09/07/15 History methOCARBAMOL [Robaxin TAB] 500 mg PO QID 09/07/15 11/20/15 09/07/15 History raNITIdine HCl [Zantac] 150 mg PO QDAY 09/07/15 11/20/15 09/07/15 History traZODone [Desyrel] 150 mg PO QHS 09/07/15 11/20/15 09/07/15 History Aspirin [Aspirin BABY CHEW TAB] 81 mg PO QDAY 11/20/15 11/20/15 Unknown History Esomeprazole Magnesium [NexIUM] 40 mg PO BID 11/20/15 11/20/15 Unknown History Ibuprofen [Motrin] 800 mg PO Q8HR PRN 11/20/15 11/20/15 Unknown History Nitroglycerin [Nitrostat] 0.4 mg SL Q5M PRN 11/20/15 11/20/15 Unknown History Oxycodone HCl/Acetaminophen 1 each PO Q6HR PRN 11/20/15 11/20/15 Unknown History [Percocet 10/325 mg] Promethazine [Phenergan TAB] 25 mg PO Q8HR PRN 11/20/15 11/20/15 Unknown History Quetiapine Fumarate [SEROquel XR] 400 mg PO QHS 11/20/15 11/20/15 Unknown History Zolpidem (Nf) [Ambien] 10 mg PO BID 11/20/15 11/20/15 Unknown History carisoprodoL [Soma] 350 mg PO TID 11/20/15 11/20/15 Unknown History diphenhydrAMINE [Benadryl CAP] 50 mg PO Q8HR PRN 11/20/15 11/20/15 Unknown History lisinopriL [Zestril TAB] 5 mg PO QDAY #30 tablet 11/22/15 Unknown Rx Azithromycin 250 mg PO DAILY #6 tablet 11/10/18 Unknown Rx predniSONE [Deltasone] 40 mg PO QDAY 4 Days #8 tab 11/10/18 Unknown Rx Albuterol Sulfate [Ventolin HFA] 2 puff IH Q4H PRN #1 hfa.aer.ad 02/06/19 Unknown Rx Benzonatate [Tessalon Perles] 100 mg PO Q8HR PRN #30 capsule 02/06/19 Unknown Rx predniSONE [predniSONE 10mg (21 10 mg PO QDAY #1 tab.ds.pk 02/06/19 Unknown Rx tabs)] Budesonide/Formoterol Fumarate 10.2 gm IH BID #1 hfa.aer.ad 02/15/19 Unknown Rx [Symbicort 80-4.5 Mcg Inhaler] Cetirizine HCl [ZyrTEC] 10 mg PO QDAY #30 capsule 02/15/19 Unknown Rx Ondansetron [Zofran Odt] 4 mg PO Q8HR #12 tab.rapdis 02/15/19 Unknown Rx Ibuprofen [Motrin 800 MG tab] 800 mg PO Q8HR PRN #14 tablet 01/01/20 Unknown Rx Cyclobenzaprine [Flexeril 10 MG 10 mg PO Q8H PRN #21 01/12/20 Unknown Rx TAB] Ibuprofen [Motrin] 600 mg PO Q8H PRN #24 tablet 01/12/20 Unknown Rx Menthol/Camphor [[place] 1 applic TP BID #18 oint...g. 07/17/20 Unknown Rx Ointment] Naproxen [EC-Naprosyn] 500 mg PO BID PRN #14 tablet. 07/17/20 Unknown Rx Azithromycin [Zithromax Z-PAVITHRA] 0 mg PO DAILY #1 pack 07/22/20 Unknown Rx Benzonatate [Tessalon Perles] 100 mg PO Q8HR PRN #20 capsule 07/22/20 Unknown Rx Ibuprofen [Motrin 600 MG tab] 600 mg PO Q8H PRN #30 tablet 10/29/20 Unknown Rx Amlodipine Besylate [Norvasc] 5 mg PO DAILY 09/27/21 09/27/21 Unknown History AtorvaSTATin [Lipitor] 20 mg PO QHS 09/27/21 09/27/21 Unknown History Fluticasone Propion/Salmeterol 1 inhalation INNOSTRIL BID 09/27/21 09/27/21 Unknown History [Fluticasone-Salmeterol 500-50] Meloxicam [Mobic] 7.5 mg PO QDAY 09/27/21 09/27/21 Unknown History metFORMIN [Glucophage] 500 mg PO BID 09/27/21 09/27/21 Unknown History Arformoterol Nebu [Brovana Nebu] 15 mcg IH Q12HRT ml 10/04/21 Unknown Rx Budesonide [Pulmicort Respules] 1 mg IH Q12HRT nebu 10/04/[address] [Depakote Dr] 125 mg PO BID 30 Days #60 tablet 10/04/21 Unknown Rx Gabapentin 300 mg PO BID 30 Days #60 capsule 10/04/21 Unknown Rx Ibuprofen [Motrin 800 MG tab] 800 mg PO Q8H PRN tablet 10/04/21 Unknown Rx QUEtiapine [SEROquel] 25 mg PO 1200 30 Days #30 tablet 10/04/21 Unknown Rx QUEtiapine [SEROquel] 25 mg PO QAM@0800 30 Days #30 10/04/21 Unknown Rx tablet QUEtiapine [SEROquel] 400 mg PO HS 30 Days #30 tablet 10/04/21 Unknown Rx Active Meds: Active Medications Amlodipine Besylate (Amlodipine 5 Mg Tab) 5 mg PO DAILY [facility] Arformoterol Tartrate (Arformoterol 15 Mcg/2 Ml Nebu) 15 mcg IH Q12HRT [facility] Aspirin (Aspirin 81 Mg Tab Chew) 81 mg PO QDAY [facility] Atorvastatin Calcium (Atorvastatin 20 Mg Tab) 20 mg PO QHS [facility] Last Admin: 02/13/22 21:16 Dose: 20 mg Benzonatate (Benzonatate 100 Mg Cap) 100 mg PO Q8HR PRN PRN Reason: Cough Budesonide (Budesonide 0.5 Mg/2 Ml Nebu) 1 mg IH Q12HRT [facility] Carisoprodol (Carisoprodol 350 Mg Tab) 350 mg PO TID [facility] Cetirizine HCl (Cetirizine 10 Mg Tab) 10 mg PO QDAY [facility] Clonidine HCl (Clonidine 0.2 Mg Tab) 0.2 mg PO BID [facility] Last Admin: 02/13/22 21:16 Dose: 0.2 mg Cyclobenzaprine HCl (Cyclobenzaprine 10 Mg Tab) 10 mg PO Q8H PRN PRN Reason: Muscle Spasm Quetiapine Fumarate (Quetiapine 200 Mg Tab) 400 mg PO QHS [facility] Results - Results Labs/Vitals: Laboratory Last Values WBC 4.2 K/mm3 (4.5-11.0) L 02/13/22 23: RBC 3.59 M/mm3 (3.65-5.03) L 02/13/22 23: Hgb 10.7 gm/dl (11.8-15.2) L 02/13/22 23: Hct 33.5 % (35.5-45.6) L 02/13/22 23: MCV 93 fl (84-94) 02/13/22 23: MCH 30 pg (28-32) 02/13/22 23: MCHC 32 % (32-34) 02/13/22 23: RDW 22.2 % (13.2-15.2) H 02/13/22 23: Plt Count 241 K/mm3 (140-440) 02/13/22 23: Lymph % (Auto) 28.1 % (13.4-35.0) 02/13/22 23: [place] % (Auto) 10.6 % (0.0-7.3) H 02/13/22 23: Eos % (Auto) 2.6 % (0.0-4.3) 02/13/22 23: Baso % (Auto) 0.8 % (0.0-1.8) 02/13/22 23: Lymph # (Auto) 1.2 K/mm3 (1.2-5.4) 02/13/22 23: [place] # (Auto) 0.4 K/mm3 (0.0-0.8) 02/13/22 23: Eos # (Auto) 0.1 K/mm3 (0.0-0.4) 02/13/22 23: Baso # (Auto) 0.0 K/mm3 (0.0-0.1) 02/13/22 23: Seg Neutrophils % 57.9 % (40.0-70.0) 02/13/22 23: Seg Neutrophils # 2.4 K/mm3 (1.8-7.7) 02/13/22 23:31 Sodium 138 mmol/L (137-145) 02/13/22 23:31 Potassium 4.1 mmol/L (3.6-5.0) 02/13/22 23:31 Chloride 105.8 mmol/L (98-107) 02/13/22 23:31 Carbon Dioxide 18 mmol/L (22-30) L 02/13/22 23:31 Anion Gap 18 mmol/L 02/13/22 23:31 BUN 22 mg/dL (9-20) H 02/13/22 23:31 Creatinine 0.6 mg/dL (0.8-1.3) L 02/13/22 23:31 Estimated GFR > 60 ml/min 02/13/22 23:31 BUN/Creatinine Ratio 37 % 02/13/22 23:31 Glucose 103 mg/dL (75-100) H 02/13/22 23:31 POC Glucose 103 mg/dL (70-105) 02/14/22 06:03 Hemoglobin A1c 5.4 % (4-6) 02/13/22 23:31 Calcium 8.2 mg/dL (8.4-10.2) L 02/13/22 23:31 Total Bilirubin 0.50 mg/dL (0.1-1.2) 02/13/22 23:31 AST 21 units/L (5-40) 02/13/22 23:31 ALT 16 units/L (7-56) 02/13/22 23:31 Alkaline Phosphatase 80 units/L (35-129) 02/13/22 23:31 Total Protein 6.5 g/dL (6.3-8.2) 02/13/22 23:31 Albumin 3.5 g/dL (3.9-5) L 02/13/22 23:31 Albumin/Globulin Ratio 1.2 % 02/13/22 23:31 Triglycerides 47 mg/dL (2-149) 02/13/22 23:31 Cholesterol 106 mg/dL (50-199) 02/13/22 23:31 LDL Cholesterol Direct 62 mg/dL (50-130) 02/13/22 23:31 HDL Cholesterol 37 mg/dL (40-59) L 02/13/22 23:31 Cholesterol/HDL Ratio 2.86 % 02/13/22 23:31 TSH 0.115 mlU/mL (0.270-4.200) L 02/13/22 23:31 Last Vital Signs Temp 98.5 F 02/13/22 22:00 Pulse 80 02/13/22 22:00 Resp 16 02/13/22 22:00 BP 142/99 02/13/22 22:00 Pulse Ox 98 02/13/22 22:00 Physical Examination - Constitutional Vitals: Vital Signs Temp Pulse Resp BP Pulse Ox 98.5 F 80 16 142/99 98 02/13/22 22:00 02/13/22 22:00 02/13/22 22:00 02/13/22 22:00 02/13/22 22:00 Temperature -Last 24 Hours Temperature 98.5 F Temperature 98.5 F Temperature 98.5 F Mental Status Exam - Vital signs Last Vital Signs Temp 98.5 F 02/13/22 22:00 Pulse 80 02/13/22 22:00 Resp 16 02/13/22 22:00 BP 142/99 02/13/22 22:00 Pulse Ox 98 02/13/22 22:00 Physician Certification - Certification Statement Physician Certification Statement: This is an acknowledgement statement that HUAN CAMACHO is a 61 year old M who requires inpatient psychiatric admission for treatment which could reasonably be expected to improve the patient's condition for Estimated period of time patient will need to remain in the hospital: [ ] Plan for post-hospital care: [ ]
[2022-02-14] MEDS ORDERED: NON-FORMULARY EACH (Cetirizine Hcl [Zyrtec 10mg Cap] 10 MG Capsule) PO SCH (10:00)
[2022-02-14] MEDS ORDERED: AZITHROMYCIN 250 MG TAB PO SCH (10:00)
[2022-02-14] MEDS: ARFORMOTEROL 15 MCG/2 ML NEBU IH SCH ×2 (10:17→20:38)
[2022-02-14] MEDS: BUDESONIDE 0.5 MG/2 ML NEBU IH SCH ×2 (10:17→20:38)
[2022-02-14] MEDS: ESCITALOPRAM 10 MG TAB PO SCH (10:28)
[2022-02-14] MEDS: ASPIRIN 81 MG TAB CHEW PO SCH (10:28)
[2022-02-14] MEDS: CETIRIZINE 10 MG TAB PO SCH (10:28)
[2022-02-14] MEDS: amLODIPine 5 MG TAB PO SCH (10:29)
[2022-02-14] MEDS: cloNIDine 0.2 MG TAB PO SCH ×2 (10:29→21:06)
[2022-02-14] MEDS: PALIPERIDONE ER 3 MG TAB PO SCH (10:29)
[2022-02-14] MEDS: QUEtiapine 200 MG TAB PO SCH (21:04)
[2022-02-15] MEDS: ARFORMOTEROL 15 MCG/2 ML NEBU IH SCH ×2 (08:08→19:44)
[2022-02-15] MEDS: BUDESONIDE 0.5 MG/2 ML NEBU IH SCH ×2 (08:08→19:44)
--- NOTE | 2022-02-15 09:01 | Progress Note ---
Subjective Date of service: 02/15/22 Subjective Comment: 02/15/22: The patient was seen this morning. He reports that he is not doing well. the patient endorses suicidal ideation with a plan "Not to shoot myself." he reports having auditory hallucinations " voices telling me to kill myself.":" REVIEW OF SYSTEMS Constitutional: Negative for weight loss ENT: Negative for stridor Respiratory: Negative for cough or hemoptysis All other systems reviewed and are negative MENTAL STATUS EXAMINATION General Appearance and Behavior: Age appropriate, good hygiene, wearing appropriate clothes. calm, cooperative Cooperation: cooperative Psychomotor Behavior: Psychomotor normal Mood: depressed Affect and affective range: congruent with stated mood Thought Process: illogical Thought Content: hallucinations, SI Speech: Normal volume, Regular rate and rhythm Suicidal Ideation: yes Homicidal Ideation: Denies Hallucinations: Auditory Delusions: none elicited Impulse Control: impaired Insight and Judgment: Limited Memory: limited Attention: Attentive Orientation: alert and oriented Assessment and Plan (1) Schizophrenia (2) Cocaine Dependence Treatment Plan Patient admitted for inpatient psychiatric evaluation, medication adjustment and close monitoring The patient's behavior, mood, sleep and appetite will be closely monitored. Patient enrolled in individual and group therapeutic sessions and encouraged to attend. Patient provided with a safe and structured environment. Patient's physical health needs will be addressed by the Hospitalist. Hospitalist Consulted Labs including CBC, CMP, Lipid profile and Hemoglobin A1C levels ordered for baseline reference Social Assessment will be completed and the Contracts Director will work with patient and family to ensure a suitable and safe disposition Medication adjustment will be made as clinically indicated Restarted Home Invega 3mg po daily Continue Lexapro 5mg po daily Continue home meds Usual Wellness [employer]/Preservation: - Start Trazodone 50 mg po QHS & 50 mg po QHS PRN between 10 PM & 2 AM for insomnia - Start Melatonin 5 mg po QHS to promote circadian rhythm The patient agreed on the treatment plan, understood the risk, benefit, alternative treatment, potential consequence of no treatment, and gave informed consent. Estimated days:4 Post hospital care: primary care provider, psychiatric provider Case staffed with Dr. Bustillo Legal Status: Voluntary Reaction to Hospitalization: Accepting Medications and Allergies Medications and Allergies Allergies Allergy/AdvReac Type Severity Reaction Status Date / Time prochlorperazine Allergy Rash Verified 10/18/21 09:09 [From Compazine] prochlorperazine edisylate Allergy Swelling Verified 10/18/21 09:09 [From Compazine] prochlorperazine maleate Allergy Swelling Verified 10/18/21 09:09 [From Compazine] tramadol Allergy Swelling Verified 10/18/21 09:09 Home Medications Medication Instructions Recorded Confirmed Last Taken Type ARIPiprazole [Abilify TAB] 15 mg PO DAILY 09/07/15 11/20/15 09/07/15 History Citalopram [celeXA] 40 mg PO QDAY 09/07/15 11/20/15 09/07/[address] [Voltaren Dr] 75 mg PO QDAY 09/07/15 11/20/15 09/07/15 History Hydroxyzine HCl [hydrOXYzine] 50 mg PO QDAY 09/07/15 11/20/15 09/07/15 History Ipratropium (Nf) [Atrovent HFA 2 puff IH Q6HR PRN 09/07/15 11/20/15 09/07/15 History 17MCG/PUFF] Meloxicam 15 mg PO QDAY 09/07/15 11/20/15 09/07/15 History Mirtazapine [Remeron] 15 mg PO QDAY 09/07/15 11/20/15 09/07/15 History cloNIDine [Catapres] 0.2 mg PO BID 09/07/15 11/20/15 09/07/15 History metFORMIN [Glucophage] 500 mg PO BID 09/07/15 11/20/15 09/07/15 History methOCARBAMOL [Robaxin TAB] 500 mg PO QID 09/07/15 11/20/15 09/07/15 History raNITIdine HCl [Zantac] 150 mg PO QDAY 09/07/15 11/20/15 09/07/15 History traZODone [Desyrel] 150 mg PO QHS 09/07/15 11/20/15 09/07/15 History Aspirin [Aspirin BABY CHEW TAB] 81 mg PO QDAY 11/20/15 11/20/15 Unknown History Esomeprazole Magnesium [NexIUM] 40 mg PO BID 11/20/15 11/20/15 Unknown History Ibuprofen [Motrin] 800 mg PO Q8HR PRN 11/20/15 11/20/15 Unknown History Nitroglycerin [Nitrostat] 0.4 mg SL Q5M PRN 11/20/15 11/20/15 Unknown History Oxycodone HCl/Acetaminophen 1 each PO Q6HR PRN 11/20/15 11/20/15 Unknown History [Percocet 10/325 mg] Promethazine [Phenergan TAB] 25 mg PO Q8HR PRN 11/20/15 11/20/15 Unknown History Quetiapine Fumarate [SEROquel XR] 400 mg PO QHS 11/20/15 11/20/15 Unknown History Zolpidem (Nf) [Ambien] 10 mg PO BID 11/20/15 11/20/15 Unknown History carisoprodoL [Soma] 350 mg PO TID 11/20/15 11/20/15 Unknown History diphenhydrAMINE [Benadryl CAP] 50 mg PO Q8HR PRN 11/20/15 11/20/15 Unknown History lisinopriL [Zestril TAB] 5 mg PO QDAY #30 tablet 11/22/15 Unknown Rx Azithromycin 250 mg PO DAILY #6 tablet 11/10/18 Unknown Rx predniSONE [Deltasone] 40 mg PO QDAY 4 Days #8 tab 11/10/18 Unknown Rx Albuterol Sulfate [Ventolin HFA] 2 puff IH Q4H PRN #1 hfa.aer.ad 02/06/19 Unknown Rx Benzonatate [Tessalon Perles] 100 mg PO Q8HR PRN #30 capsule 02/06/19 Unknown Rx predniSONE [predniSONE 10mg (21 10 mg PO QDAY #1 tab.ds.pk 02/06/19 Unknown Rx tabs)] Budesonide/Formoterol Fumarate 10.2 gm IH BID #1 hfa.aer.ad 02/15/19 Unknown Rx [Symbicort 80-4.5 Mcg Inhaler] Cetirizine HCl [ZyrTEC] 10 mg PO QDAY #30 capsule 02/15/19 Unknown Rx Ondansetron [Zofran Odt] 4 mg PO Q8HR #12 tab.rapdis 02/15/19 Unknown Rx Ibuprofen [Motrin 800 MG tab] 800 mg PO Q8HR PRN #14 tablet 01/01/20 Unknown Rx Cyclobenzaprine [Flexeril 10 MG 10 mg PO Q8H PRN #21 01/12/20 Unknown Rx TAB] Ibuprofen [Motrin] 600 mg PO Q8H PRN #24 tablet 01/12/20 Unknown Rx Menthol/Camphor [[place] 1 applic TP BID #18 oint...g. 07/17/20 Unknown Rx Ointment] Naproxen [EC-Naprosyn] 500 mg PO BID PRN #14 tablet. 07/17/20 Unknown Rx Azithromycin [Zithromax Z-PAVITHRA] 0 mg PO DAILY #1 pack 07/22/20 Unknown Rx Benzonatate [Tessalon Perles] 100 mg PO Q8HR PRN #20 capsule 07/22/20 Unknown Rx Ibuprofen [Motrin 600 MG tab] 600 mg PO Q8H PRN #30 tablet 10/29/20 Unknown Rx Amlodipine Besylate [Norvasc] 5 mg PO DAILY 09/27/21 09/27/21 Unknown History AtorvaSTATin [Lipitor] 20 mg PO QHS 09/27/21 09/27/21 Unknown History Fluticasone Propion/Salmeterol 1 inhalation INNOSTRIL BID 09/27/21 09/27/21 Unknown History [Fluticasone-Salmeterol 500-50] Meloxicam [Mobic] 7.5 mg PO QDAY 09/27/21 09/27/21 Unknown History metFORMIN [Glucophage] 500 mg PO BID 09/27/21 09/27/21 Unknown History Arformoterol Nebu [Brovana Nebu] 15 mcg IH Q12HRT ml 10/04/21 Unknown Rx Budesonide [Pulmicort Respules] 1 mg IH Q12HRT nebu 10/04/21 Unknown Rx Divalproex [[place]] 125 mg PO BID 30 Days #60 tablet 10/04/21 Unknown Rx Gabapentin 300 mg PO BID 30 Days #60 capsule 10/04/21 Unknown Rx Ibuprofen [Motrin 800 MG tab] 800 mg PO Q8H PRN tablet 10/04/21 Unknown Rx QUEtiapine [SEROquel] 25 mg PO 1200 30 Days #30 tablet 10/04/21 Unknown Rx QUEtiapine [SEROquel] 25 mg PO QAM@0800 30 Days #30 10/04/21 Unknown Rx tablet QUEtiapine [SEROquel] 400 mg PO HS 30 Days #30 tablet 10/04/21 Unknown Rx Active Meds: Active Medications Amlodipine Besylate (Amlodipine 5 Mg Tab) 5 mg PO DAILY [facility] Last Admin: 02/14/22 10:29 Dose: Not Given Arformoterol Tartrate (Arformoterol 15 Mcg/2 Ml Nebu) 15 mcg IH Q12HRT [facility] Last Admin: 02/15/22 08:08 Dose: 15 mcg Aspirin (Aspirin 81 Mg Tab Chew) 81 mg PO QDAY [facility] Last Admin: 02/14/22 10:28 Dose: 81 mg Atorvastatin Calcium (Atorvastatin 20 Mg Tab) 20 mg PO QHS [facility] Last Admin: 02/14/22 21:05 Dose: 20 mg Benzonatate (Benzonatate 100 Mg Cap) 100 mg PO Q8HR PRN PRN Reason: Cough Budesonide (Budesonide 0.5 Mg/2 Ml Nebu) 1 mg IH Q12HRT [facility] Last Admin: 02/15/22 08:08 Dose: 1 mg Carisoprodol (Carisoprodol 350 Mg Tab) 350 mg PO TID [facility] Last Admin: 02/14/22 21:05 Dose: 350 mg Cetirizine HCl (Cetirizine 10 Mg Tab) 10 mg PO QDAY [facility] Last Admin: 02/14/22 10:28 Dose: 10 mg Clonidine HCl (Clonidine 0.2 Mg Tab) 0.2 mg PO BID [facility] Last Admin: 02/14/22 21:06 Dose: Not Given Cyclobenzaprine HCl (Cyclobenzaprine 10 Mg Tab) 10 mg PO Q8H PRN PRN Reason: Muscle Spasm Escitalopram Oxalate (Escitalopram 10 Mg Tab) 5 mg PO QDAY [facility] Last Admin: 02/14/22 10:28 Dose: 5 mg Paliperidone (Paliperidone Er 3 Mg Tab) 3 mg PO QDAY [facility] Last Admin: 02/14/22 10:29 Dose: 3 mg Quetiapine Fumarate (Quetiapine 200 Mg Tab) 400 mg PO QHS [facility] Last Admin: 02/14/22 21:04 Dose: 400 mg Results - Results Labs/Vitals: Laboratory Last Values WBC 4.2 K/mm3 (4.5-11.0) L 02/13/22 23:31 RBC 3.59 M/mm3 (3.65-5.03) L 02/13/22 23: Hgb 10.7 gm/dl (11.8-15.2) L 02/13/22: Hct 33.5 % (35.5-45.6) L 02/13/22: MCV 93 fl (84-94) 02/13/22 23: MCH 30 pg (28-32) 02/13/22: MCHC 32 % (32-34) 02/13/22: RDW 22.2 % (13.2-15.2) H 02/13/22: Plt Count 241 K/mm3 (140-440) 02/13/22: Lymph % (Auto) 28.1 % (13.4-35.0) 02/13/22: [place] % (Auto) 10.6 % (0.0-7.3) H 02/13/22: Eos % (Auto) 2.6 % (0.0-4.3) 02/13/22: Baso % (Auto) 0.8 % (0.0-1.8) 02/13/22: Lymph # (Auto) 1.2 K/mm3 (1.2-5.4) 02/13/22: [place] # (Auto) 0.4 K/mm3 (0.0-0.8) 02/13/22: Eos # (Auto) 0.1 K/mm3 (0.0-0.4) 02/13/22: Baso # (Auto) 0.0 K/mm3 (0.0-0.1) 02/13/22: Seg Neutrophils % 57.9 % (40.0-70.0) 02/13/22: Seg Neutrophils # 2.4 K/mm3 (1.8-7.7) 02/13/22: Sodium 138 mmol/L (137-145) 02/13/22: Potassium 4.1 mmol/L (3.6-5.0) 02/13/22: Chloride 105.8 mmol/L (98-107) 02/13/22: Carbon Dioxide 18 mmol/L (22-30) L 04/13/22 23:31 Anion Gap 18 mmol/L 02/13/22 23:31 BUN 22 mg/dL (9-20) H 02/13/22 23:31 Creatinine 0.6 mg/dL (0.8-1.3) L 02/13/22 23:31 Estimated GFR > 60 ml/min 02/13/22 23:31 BUN/Creatinine Ratio 37 % 02/13/22 23:31 Glucose 103 mg/dL (75-100) H 02/13/22 23:31 POC Glucose 103 mg/dL (70-105) 02/14/22 06:03 Hemoglobin A1c 5.4 % (4-6) 02/13/22 23:31 Calcium 8.2 mg/dL (8.4-10.2) L 02/13/22 23:31 Total Bilirubin 0.50 mg/dL (0.1-1.2) 02/13/22 23:31 AST 21 units/L (5-40) 02/13/22 23:31 ALT 16 units/L (7-56) 02/13/22 23:31 Alkaline Phosphatase 80 units/L (35-129) 02/13/22 23:31 Total Protein 6.5 g/dL (6.3-8.2) 02/13/22 23:31 Albumin 3.5 g/dL (3.9-5) L 02/13/22 23:31 Albumin/Globulin Ratio 1.2 % 02/13/22 23:31 Triglycerides 47 mg/dL (2-149) 02/13/22 23:31 Cholesterol 106 mg/dL (50-199) 02/13/22 23:31 LDL Cholesterol Direct 62 mg/dL (50-130) 02/13/22 23:31 HDL Cholesterol 37 mg/dL (40-59) L 02/13/22 23:31 Cholesterol/HDL Ratio 2.86 % 02/13/22 23:31 TSH 0.115 mlU/mL (0.270-4.200) L 02/13/22 23:31 Last Vital Signs Temp 98.9 F 02/14/22 19:38 Pulse 80 02/15/22 08:21 Resp 14 02/15/22 08:21 BP 116/73 02/14/22 21:06 Pulse Ox 97 02/14/22 19:38
[2022-02-15] MEDS: amLODIPine 5 MG TAB PO SCH (10:26)
[2022-02-15] MEDS: ESCITALOPRAM 10 MG TAB PO SCH (10:27)
[2022-02-15] MEDS: ASPIRIN 81 MG TAB CHEW PO SCH (10:27)
[2022-02-15] MEDS: cloNIDine 0.2 MG TAB PO SCH ×2 (10:28→21:45)
[2022-02-15] MEDS: CETIRIZINE 10 MG TAB PO SCH (10:28)
[2022-02-15] MEDS: CARISOPRODOL 350 MG TAB PO SCH ×3 (10:29→20:36)
[2022-02-15] MEDS: PALIPERIDONE ER 3 MG TAB PO SCH (10:30)
--- NOTE | 2022-02-15 20:30 | Progress Note ---
Assessment and Plan - Patient Problems (1) Cerebral atherosclerosis Current Visit: Yes Status: Acute Plan to address problem: Risk factor reduction, antiplatelet therapy as clinical indicated. (2) Malnutrition Current Visit: Yes Status: Acute Qualifiers: Protein-calorie malnutrition severity: moderate Plan to address problem: Increase protein intake, dietary supplementation. (3) Psychosis Current Visit: Yes Status: Acute Qualifiers: Schizophrenia type: unspecified Plan to address problem: Continue medical management. (4) Schizophrenia Current Visit: Yes Status: Acute Qualifiers: Schizophrenia type: unspecified Qualified Code(s): F20.9 - Schizophrenia, unspecified Plan to address problem: Continue medical management. (5) Vascular dementia with behavioral disturbance Current Visit: Yes Status: Acute Plan to address problem: Verbal prompting, verbal redirection, benzodiazepine therapy as clinically indicated. (6) Advance care planning Current Visit: Yes Status: Acute Plan to address problem: Disease education conducted, care plan discussed, diagnoses discussed, prognosis discussed, patient is full code. Patient acknowledges understanding and agreement with care plan, +30 minutes. History Interval history: 61 YO Male with Vascular Dementia with Behavioral Disturbance, Cerebral Atherosclerosis, Malnutrition, HTN, Schizophrenia, Psychosis admitted to [facility] for psychiatric stabilization. Patient seen and evaluated in the recreation room. No reported nursing events. Patient remains at baseline level of cognition and function. Hospitalist Physical - Constitutional Vitals: Temp Pulse Resp BP Pulse Ox 98.5 F 84 14 103/65 100 02/15/22 09:27 02/15/22 19:52 02/15/22 19:52 02/15/22 10:28 02/15/22 09:27 General appearance: Present: no acute distress - EENT Eyes: Present: PERRL ENT: hearing decreased - Neck Neck: Present: supple - Respiratory Respiratory effort: normal Respiratory: bilateral: CTA - Cardiovascular Rhythm: regular Heart Sounds: Present: S1 & S2 - Extremities Extremities: no ischemia Peripheral Pulses: within normal limits - Abdominal General gastrointestinal: soft, non-tender, non-distended - Integumentary Integumentary: Present: clear, dry - Psychiatric Psychiatric: cooperative - Neurologic Neurologic: CNII-XII intact Results - Labs CBC & Chem 7: 02/13/22 23:31 02/13/22 23:31 Labs: Laboratory Last Values WBC 4.2 K/mm3 (4.5-11.0) L 02/13/22 23:31 RBC 3.59 M/mm3 (3.65-5.03) L 02/13/22 23: Hgb 10.7 gm/dl (11.8-15.2) L 02/13/22 23: Hct 33.5 % (35.5-45.6) L 02/13/22 23: MCV 93 fl (84-94) 02/13/22 23: MCH 30 pg (28-32) 02/13/22 23: MCHC 32 % (32-34) 02/13/22 23: RDW 22.2 % (13.2-15.2) H 02/13/22: Plt Count 241 K/mm3 (140-440) 02/13/22 23: Lymph % (Auto) 28.1 % (13.4-35.0) 02/13/22 23: [place] % (Auto) 10.6 % (0.0-7.3) H 02/13/22 23: Eos % (Auto) 2.6 % (0.0-4.3) 02/13/22 23: Baso % (Auto) 0.8 % (0.0-1.8) 02/13/22 23: Lymph # (Auto) 1.2 K/mm3 (1.2-5.4) 02/13/22 23: [place] # (Auto) 0.4 K/mm3 (0.0-0.8) 02/13/22 23: Eos # (Auto) 0.1 K/mm3 (0.0-0.4) 02/13/22 23: Baso # (Auto) 0.0 K/mm3 (0.0-0.1) 02/13/22 23: Seg Neutrophils % 57.9 % (40.0-70.0) 02/13/22: Seg Neutrophils # 2.4 K/mm3 (1.8-7.7) 02/13/22 23: Sodium 138 mmol/L (137-145) 02/13/22 23: Potassium 4.1 mmol/L (3.6-5.0) 02/13/22 23: Chloride 105.8 mmol/L (98-107) 02/13/22 23:31 Carbon Dioxide 18 mmol/L (22-30) L 02/13/22 23:31 Anion Gap 18 mmol/L 02/13/22 23:31 BUN 22 mg/dL (9-20) H 02/13/22 23:31 Creatinine 0.6 mg/dL (0.8-1.3) L 02/13/22 23:31 Estimated GFR > 60 ml/min 02/13/22 23:31 BUN/Creatinine Ratio 37 % 02/13/22 23:31 Glucose 103 mg/dL (75-100) H 02/13/22 23:31 POC Glucose 112 mg/dL (70-105) H 02/15/22 08:18 Hemoglobin A1c 5.4 % (4-6) 02/13/22 23:31 Calcium 8.2 mg/dL (8.4-10.2) L 02/13/22 23:31 Total Bilirubin 0.50 mg/dL (0.1-1.2) 02/13/22 23:31 AST 21 units/L (5-40) 02/13/22 23:31 ALT 16 units/L (7-56) 02/13/22 23:31 Alkaline Phosphatase 80 units/L (35-129) 02/13/22 23:31 Total Protein 6.5 g/dL (6.3-8.2) 02/13/22 23:31 Albumin 3.5 g/dL (3.9-5) L 02/13/22 23:31 Albumin/Globulin Ratio 1.2 % 02/13/22 23:31 Triglycerides 47 mg/dL (2-149) 02/13/22 23:31 Cholesterol 106 mg/dL (50-199) 02/13/22 23:31 LDL Cholesterol Direct 62 mg/dL (50-130) 02/13/22 23:31 HDL Cholesterol 37 mg/dL (40-59) L 02/13/22 23:31 Cholesterol/HDL Ratio 2.86 % 02/13/22 23:31 TSH 0.115 mlU/mL (0.270-4.200) L 02/13/22 23:31 Hanson/IV: Voiding Method Toilet Active Medications - Current Medications Current Medications: Generic Name Dose Route Start Last Admin Trade Name Freq PRN Reason Stop Dose Admin Amlodipine Besylate 5 mg 02/14/22 10:00 02/15/22 10:26 Amlodipine 5 Mg Tab PO 5 mg DAILY SHASHI Administration Arformoterol Tartrate 15 mcg 02/14/22 08:00 02/15/22 19:44 Arformoterol 15 Mcg/2 Ml Nebu IH 15 mcg Q12HRT SHASHI Administration Aspirin 81 mg 02/14/22 10:00 02/15/22 10:27 Aspirin 81 Mg Tab Chew PO 81 mg QDAY SHASHI Administration Atorvastatin Calcium 20 mg 02/13/22 22:00 02/14/22 21:05 Atorvastatin 20 Mg Tab PO 20 mg QHS SHASHI Administration Benzonatate 100 mg 02/13/22 20:52 Benzonatate 100 Mg Cap PO Q8HR PRN Cough Budesonide 1 mg 02/14/22 08:00 02/15/22 19:44 Budesonide 0.5 Mg/2 Ml Nebu IH 1 mg Q12HRT SHASHI Administration Carisoprodol 350 mg 02/14/22 08:00 02/15/22 13:53 Carisoprodol 350 Mg Tab PO 350 mg TID SHASHI Administration Cetirizine HCl 10 mg 02/14/22 10:00 02/15/22 10:28 Cetirizine 10 Mg Tab PO 10 mg QDAY SHASHI Administration Clonidine HCl 0.2 mg 02/13/22 22:00 02/15/22 10:28 Clonidine 0.2 Mg Tab PO Not Given BID SHASHI Cyclobenzaprine HCl 10 mg 02/13/22 20:52 Cyclobenzaprine 10 Mg Tab PO Q8H PRN Muscle Spasm Escitalopram Oxalate 5 mg 02/14/22 10:00 02/15/22 10:27 Escitalopram 10 Mg Tab PO 5 mg QDAY SHASHI Administration Paliperidone 3 mg 02/14/22 10:00 02/15/22 10:30 Paliperidone Er 3 Mg Tab PO 3 mg QDAY SHASHI Administration Quetiapine Fumarate 400 mg 02/14/22 22:00 02/14/22 21:04 Quetiapine 200 Mg Tab PO 400 mg QHS SHASHI Administration
[2022-02-15] MEDS: QUEtiapine 200 MG TAB PO SCH (21:45)
[2022-02-16] MEDS: ARFORMOTEROL 15 MCG/2 ML NEBU IH SCH (07:49)
[2022-02-16] MEDS: BUDESONIDE 0.5 MG/2 ML NEBU IH SCH (07:49)
[2022-02-16] MEDS: CARISOPRODOL 350 MG TAB PO SCH ×3 (08:40→20:32)
--- NOTE | 2022-02-16 08:48 | Progress Note ---
Subjective Date of service: 02/16/22 Subjective Comment: 02/16/22: The patient was seen this morning. The patient endorses suicidal ideation with a plan " to shoot myself." he reports having auditory hallucinations " voices telling me to kill myself." 02/15/22: The patient was seen this morning. He reports that he is not doing well. the patient endorses suicidal ideation with a plan "Not to shoot myself." he reports having auditory hallucinations " voices telling me to kill myself.":" REVIEW OF SYSTEMS Constitutional: Negative for weight loss ENT: Negative for stridor Respiratory: Negative for cough or hemoptysis All other systems reviewed and are negative MENTAL STATUS EXAMINATION General Appearance and Behavior: Age appropriate, good hygiene, wearing appropriate clothes. calm, cooperative Cooperation: cooperative Psychomotor Behavior: Psychomotor normal Mood: depressed Affect and affective range: congruent with stated mood Thought Process: illogical Thought Content: hallucinations, SI Speech: Normal volume, Regular rate and rhythm Suicidal Ideation: yes Homicidal Ideation: Denies Hallucinations: Auditory Delusions: none elicited Impulse Control: impaired Insight and Judgment: Limited Memory: limited Attention: Attentive Orientation: alert and oriented Assessment and Plan (1) Schizophrenia (2) Cocaine Dependence Treatment Plan Patient admitted for inpatient psychiatric evaluation, medication adjustment and close monitoring The patient's behavior, mood, sleep and appetite will be closely monitored. Patient enrolled in individual and group therapeutic sessions and encouraged to attend. Patient provided with a safe and structured environment. Patient's physical health needs will be addressed by the Hospitalist. Hosp italist Consulted Labs including CBC, CMP, Lipid profile and Hemoglobin A1C levels ordered for baseline reference Social Assessment will be completed and the Arc Wel[employer] Apprentice will work with patient and family to ensure a suitable and safe disposition Medication adjustment will be made as clinically indicated Restarted Home Invega 3mg po daily Continue Lexapro 5mg po daily Continue home meds Usual Wellness Zoroastrian/Preservation: - Start Trazodone 50 mg po QHS & 50 mg po QHS PRN between 10 PM & 2 AM for insomnia - Start Melatonin 5 mg po QHS to promote circadian rhythm The patient agreed on the treatment plan, understood the risk, benefit, alternative treatment, potential consequence of no treatment, and gave informed consent. Estimated days:4 Post hospital care: primary care provider, psychiatric provider Case staffed with Dr. Bustillo Legal Status: Voluntary Reaction to Hospitalization: Accepting Medications and Allergies Medications and Allergies Allergies Allergy/AdvReac Type Severity Reaction Status Date / Time prochlorperazine Allergy Rash Verified 10/18/21 09:09 [From Compazine] prochlorperazine edisylate Allergy Swelling Verified 10/18/21 09:09 [From Compazine] prochlorperazine maleate Allergy Swelling Verified 10/18/21 09:09 [From Compazine] tramadol Allergy Swelling Verified 10/18/21 09:09 Home Medications Medication Instructions Recorded Confirmed Last Taken Type ARIPiprazole [Abilify TAB] 15 mg PO DAILY 09/07/15 11/20/15 09/07/15 History Citalopram [celeXA] 40 mg PO QDAY 09/07/15 11/20/15 09/07/[address] [Voltaren Dr] 75 mg PO QDAY 09/07/15 11/20/15 09/07/15 History Hydroxyzine HCl [hydrOXYzine] 50 mg PO QDAY 09/07/15 11/20/15 09/07/15 History Ipratropium (Nf) [Atrovent HFA 2 puff IH Q6HR PRN 09/07/15 11/20/15 09/07/15 History 17MCG/PUFF] Meloxicam 15 mg PO QDAY 09/07/15 11/20/15 09/07/15 History Mirtazapine [Remeron] 15 mg PO QDAY 09/07/15 11/20/15 09/07/15 History cloNIDine [Catapres] 0.2 mg PO BID 09/07/15 11/20/15 09/07/15 History metFORMIN [Glucophage] 500 mg PO BID 09/07/15 11/20/15 09/07/15 History methOCARBAMOL [Robaxin TAB] 500 mg PO QID 09/07/15 11/20/15 09/07/15 History raNITIdine HCl [Zantac] 150 mg PO QDAY 09/07/15 11/20/15 09/07/15 History traZODone [Desyrel] 150 mg PO QHS 09/07/15 11/20/15 09/07/15 History Aspirin [Aspirin BABY CHEW TAB] 81 mg PO QDAY 11/20/15 11/20/15 Unknown History Esomeprazole Magnesium [NexIUM] 40 mg PO BID 11/20/15 11/20/15 Unknown History Ibuprofen [Motrin] 800 mg PO Q8HR PRN 11/20/15 11/20/15 Unknown History Nitroglycerin [Nitrostat] 0.4 mg SL Q5M PRN 11/20/15 11/20/15 Unknown History Oxycodone HCl/Acetaminophen 1 each PO Q6HR PRN 11/20/15 11/20/15 Unknown History [Percocet 10/325 mg] Promethazine [Phenergan TAB] 25 mg PO Q8HR PRN 11/20/15 11/20/15 Unknown History Quetiapine Fumarate [SEROquel XR] 400 mg PO QHS 11/20/15 11/20/15 Unknown History Zolpidem (Nf) [Ambien] 10 mg PO BID 11/20/15 11/20/15 Unknown History carisoprodoL [Soma] 350 mg PO TID 11/20/15 11/20/15 Unknown History diphenhydrAMINE [Benadryl CAP] 50 mg PO Q8HR PRN 11/20/15 11/20/15 Unknown History lisinopriL [Zestril TAB] 5 mg PO QDAY #30 tablet 11/22/15 Unknown Rx Azithromycin 250 mg PO DAILY #6 tablet 11/10/18 Unknown Rx predniSONE [Deltasone] 40 mg PO QDAY 4 Days #8 tab 11/10/18 Unknown Rx Albuterol Sulfate [Ventolin HFA] 2 puff IH Q4H PRN #1 hfa.aer.ad 02/06/19 Unknown Rx Benzonatate [Tessalon Perles] 100 mg PO Q8HR PRN #30 capsule 02/06/19 Unknown Rx predniSONE [predniSONE 10mg (21 10 mg PO QDAY #1 tab.ds.pk 02/06/19 Unknown Rx tabs)] Budesonide/Formoterol Fumarate 10.2 gm IH BID #1 hfa.aer.ad 02/15/19 Unknown Rx [Symbicort 80-4.5 Mcg Inhaler] Cetirizine HCl [ZyrTEC] 10 mg PO QDAY #30 capsule 02/15/19 Unknown Rx Ondansetron [Zofran Odt] 4 mg PO Q8HR #12 tab.rapdis 02/15/19 Unknown Rx Ibuprofen [Motrin 800 MG tab] 800 mg PO Q8HR PRN #14 tablet 01/01/20 Unknown Rx Cyclobenzaprine [Flexeril 10 MG 10 mg PO Q8H PRN #21 01/12/20 Unknown Rx TAB] Ibuprofen [Motrin] 600 mg PO Q8H PRN #24 tablet 01/12/20 Unknown Rx Menthol/Camphor [[place] 1 applic TP BID #18 oint...g. 07/17/20 Unknown Rx Ointment] Naproxen [EC-Naprosyn] 500 mg PO BID PRN #14 tablet. 07/17/20 Unknown Rx Azithromycin [Zithromax Z-PAVITHRA] 0 mg PO DAILY #1 pack 07/22/20 Unknown Rx Benzonatate [Tessalon Perles] 100 mg PO Q8HR PRN #20 capsule 07/22/20 Unknown Rx Ibuprofen [Motrin 600 MG tab] 600 mg PO Q8H PRN #30 tablet 10/29/20 Unknown Rx Amlodipine Besylate [Norvasc] 5 mg PO DAILY 09/27/21 09/27/21 Unknown History AtorvaSTATin [Lipitor] 20 mg PO QHS 09/27/21 09/27/21 Unknown History Fluticasone Propion/Salmeterol 1 inhalation INNOSTRIL BID 09/27/21 09/27/21 Unknown History [Fluticasone-Salmeterol 500-50] Meloxicam [Mobic] 7.5 mg PO QDAY 09/27/21 09/27/21 Unknown History metFORMIN [Glucophage] 500 mg PO BID 09/27/21 09/27/21 Unknown History Arformoterol Nebu [Brovana Nebu] 15 mcg IH Q12HRT ml 10/04/21 Unknown Rx Budesonide [Pulmicort Respules] 1 mg IH Q12HRT nebu 10/04/21 Unknown Rx Divalproex [Raissa Aiken] 125 mg PO BID 30 Days #60 tablet 10/04/21 Unknown Rx Gabapentin 300 mg PO BID 30 Days #60 capsule 10/04/21 Unknown Rx Ibuprofen [Motrin 800 MG tab] 800 mg PO Q8H PRN tablet 10/04/21 Unknown Rx QUEtiapine [SEROquel] 25 mg PO 1200 30 Days #30 tablet 10/04/21 Unknown Rx QUEtiapine [SEROquel] 25 mg PO QAM@0800 30 Days #30 10/04/21 Unknown Rx tablet QUEtiapine [SEROquel] 400 mg PO HS 30 Days #30 tablet 10/04/21 Unknown Rx Active Meds: Active Medications Amlodipine Besylate (Amlodipine 5 Mg Tab) 5 mg PO DAILY [facility] Last Admin: 02/15/22 10:26 Dose: 5 mg Arformoterol Tartrate (Arformoterol 15 Mcg/2 Ml Nebu) 15 mcg IH Q12HRT [facility] Last Admin: 02/16/22 07:49 Dose: 15 mcg Aspirin (Aspirin 81 Mg Tab Chew) 81 mg PO QDAY [facility] Last Admin: 02/15/22 10:27 Dose: 81 mg Atorvastatin Calcium (Atorvastatin 20 Mg Tab) 20 mg PO QHS [facility] Last Admin: 02/15/22 21:45 Dose: 20 mg Benzonatate (Benzonatate 100 Mg Cap) 100 mg PO Q8HR PRN PRN Reason: Cough Budesonide (Budesonide 0.5 Mg/2 Ml Nebu) 1 mg IH Q12HRT [facility] Last Admin: 02/16/22 07:49 Dose: 0.5 mg Carisoprodol (Carisoprodol 350 Mg Tab) 350 mg PO TID [facility] Last Admin: 02/15/22 20:36 Dose: 350 mg Cetirizine HCl (Cetirizine 10 Mg Tab) 10 mg PO QDAY [facility] Last Admin: 02/15/22 10:28 Dose: 10 mg Clonidine HCl (Clonidine 0.2 Mg Tab) 0.2 mg PO BID [facility] Last Admin: 02/15/22 21:45 Dose: Not Given Cyclobenzaprine HCl (Cyclobenzaprine 10 Mg Tab) 10 mg PO Q8H PRN PRN Reason: Muscle Spasm Escitalopram Oxalate (Escitalopram 10 Mg Tab) 5 mg PO QDAY [facility] Last Admin: 02/15/22 10:27 Dose: 5 mg Paliperidone (Paliperidone Er 3 Mg Tab) 3 mg PO QDAY [facility] Last Admin: 02/15/22 10:30 Dose: 3 mg Quetiapine Fumarate (Quetiapine 200 Mg Tab) 400 mg PO QHS [facility] Last Admin: 02/15/22 21:45 Dose: 400 mg Results - Results Labs/Vitals: Laboratory Last Values WBC 4.2 K/mm3 (4.5-11.0) L 02/13/22 23: RBC 3.59 M/mm3 (3.65-5.03) L 02/13/22 23: Hgb 10.7 gm/dl (11.8-15.2) L 02/13/22 23: Hct 33.5 % (35.5-45.6) L 02/13/22 23: MCV 93 fl (84-94) 02/13/22 23: MCH 30 pg (28-32) 02/13/22 23: MCHC 32 % (32-34) 02/13/22 23: RDW 22.2 % (13.2-15.2) H 02/13/22: Plt Count 241 K/mm3 (140-440) 02/13/22 23: Lymph % (Auto) 28.1 % (13.4-35.0) 02/13/22 23: [place] % (Auto) 10.6 % (0.0-7.3) H 02/13/22 23: Eos % (Auto) 2.6 % (0.0-4.3) 02/13/22 23: Baso % (Auto) 0.8 % (0.0-1.8) 02/13/22: Lymph # (Auto) 1.2 K/mm3 (1.2-5.4) 02/13/22 23: [place] # (Auto) 0.4 K/mm3 (0.0-0.8) 02/13/22: Eos # (Auto) 0.1 K/mm3 (0.0-0.4) 02/13/22 23: Baso # (Auto) 0.0 K/mm3 (0.0-0.1) 02/13/22: Seg Neutrophils % 57.9 % (40.0-70.0) 02/13/22 23: Seg Neutrophils # 2.4 K/mm3 (1.8-7.7) 02/13/22 23: Sodium 138 mmol/L (137-145) 02/13/22 23: Potassium 4.1 mmol/L (3.6-5.0) 02/13/22 23:31 Chloride 105.8 mmol/L (98-107) 02/13/22 23:31 Carbon Dioxide 18 mmol/L (22-30) L 02/13/22 23:31 Anion Gap 18 mmol/L 02/13/22 23:31 BUN 22 mg/dL (9-20) H 02/13/22 23:31 Creatinine 0.6 mg/dL (0.8-1.3) L 02/13/22 23:31 Estimated GFR > 60 ml/min 02/13/22 23:31 BUN/Creatinine Ratio 37 % 02/13/22 23:31 Glucose 103 mg/dL (75-100) H 02/13/22 23:31 POC Glucose 112 mg/dL (70-105) H 02/15/22 08:18 Hemoglobin A1c 5.4 % (4-6) 02/13/22 23:31 Calcium 8.2 mg/dL (8.4-10.2) L 02/13/22 23:31 Total Bilirubin 0.50 mg/dL (0.1-1.2) 02/13/22 23:31 AST 21 units/L (5-40) 02/13/22 23:31 ALT 16 units/L (7-56) 02/13/22 23:31 Alkaline Phosphatase 80 units/L (35-129) 02/13/22 23:31 Total Protein 6.5 g/dL (6.3-8.2) 02/13/22 23:31 Albumin 3.5 g/dL (3.9-5) L 02/13/22 23:31 Albumin/Globulin Ratio 1.2 % 02/13/22 23:31 Triglycerides 47 mg/dL (2-149) 02/13/22 23:31 Cholesterol 106 mg/dL (50-199) 02/13/22 23:31 LDL Cholesterol Direct 62 mg/dL (50-130) 02/13/22 23:31 HDL Cholesterol 37 mg/dL (40-59) L 02/13/22 23:31 Cholesterol/HDL Ratio 2.86 % 02/13/22 23:31 TSH 0.115 mlU/mL (0.270-4.200) L 02/13/22 23:31 Last Vital Signs Temp 98.8 F 02/15/22 22:00 Pulse 84 02/16/22 07:48 Resp 14 02/16/22 07:48 BP 124/77 02/15/22 22:00 Pulse Ox 97 02/15/22 22:00
[2022-02-16] MEDS: CETIRIZINE 10 MG TAB PO SCH (09:09)
[2022-02-16] MEDS: PALIPERIDONE ER 3 MG TAB PO SCH (09:09)
[2022-02-16] MEDS: ESCITALOPRAM 10 MG TAB PO SCH (09:09)
[2022-02-16] MEDS: ASPIRIN 81 MG TAB CHEW PO SCH (09:09)
[2022-02-16] MEDS: amLODIPine 5 MG TAB PO SCH (09:09)
[2022-02-16] MEDS: cloNIDine 0.2 MG TAB PO SCH (09:10)
--- NOTE | 2022-02-16 14:48 | Progress Note ---
Assessment and Plan - Patient Problems (1) Vascular dementia with behavioral disturbance Current Visit: Yes Status: Acute Plan to address problem: Verbal prompting, verbal redirection, benzodiazepine therapy as clinically indicated. (2) Cerebral atherosclerosis Current Visit: Yes Status: Acute Plan to address problem: Risk factor reduction, antiplatelet therapy as clinical indicated. (3) Schizophrenia Current Visit: Yes Status: Acute Qualifiers: Schizophrenia type: unspecified Qualified Code(s): F20.9 - Schizophrenia, unspecified Plan to address problem: Continue medical management. (4) Psychosis Current Visit: Yes Status: Acute Qualifiers: Schizophrenia type: unspecified Plan to address problem: Continue medical management. (5) Malnutrition Current Visit: Yes Status: Acute Qualifiers: Protein-calorie malnutrition severity: moderate Plan to address problem: Increase protein intake, dietary supplementation. (6) Advance care planning Current Visit: Yes Status: Acute Plan to address problem: Disease education conducted, care plan discussed, diagnoses discussed, prognosis discussed, patient is full code. Patient acknowledges understanding and agreement with care plan, +30 minutes. History Interval history: 61 YO Male with Vascular Dementia with Behavioral Disturbance, Cerebral Atherosclerosis, Malnutrition, HTN, Schizophrenia, Psychosis admitted to [facility] for psychiatric stabilization. Patient seen and evaluated in the recreation room. No reported nursing events. Patient is at baseline level of cognition and function. Hospitalist Physical - Constitutional Vitals: Temp Pulse Resp BP Pulse Ox 99.4 F 86 16 132/76 99 02/16/22 09:01 02/16/22 09:10 02/16/22 09:01 02/16/22 09:10 02/16/22 09:01 General appearance: Present: no acute distress, well-nourished - EENT Eyes: Present: PERRL ENT: hearing decreased - Neck Neck: Present: supple - Respiratory Respiratory effort: normal Respiratory: bilateral: CTA - Cardiovascular Rhythm: regular Heart Sounds: Present: S1 & S2 - Extremities Extremities: no ischemia Peripheral Pulses: within normal limits - Abdominal General gastrointestinal: soft, non-tender, non-distended - Integumentary Integumentary: Present: clear, dry - Psychiatric Psychiatric: cooperative - Neurologic Neurologic: CNII-XII intact Results - Labs CBC & Chem 7: 02/13/22 23:31 02/13/22 23:31 Labs: Laboratory Last Values WBC 4.2 K/mm3 (4.5-11.0) L 04/13/22 23: RBC 3.59 M/mm3 (3.65-5.03) L 02/13/22: Hgb 10.7 gm/dl (11.8-15.2) L 02/13/22: Hct 33.5 % (35.5-45.6) L 02/13/22: MCV 93 fl (84-94) 02/13/22: MCH 30 pg (28-32) 02/13/22: MCHC 32 % (32-34) 02/13/22: RDW 22.2 % (13.2-15.2) H 02/13/22: Plt Count 241 K/mm3 (140-440) 02/13/22: Lymph % (Auto) 28.1 % (13.4-35.0) 02/13/22: [place] % (Auto) 10.6 % (0.0-7.3) H 02/13/22: Eos % (Auto) 2.6 % (0.0-4.3) 02/13/22: Baso % (Auto) 0.8 % (0.0-1.8) 02/13/22: Lymph # (Auto) 1.2 K/mm3 (1.2-5.4) 02/13/22: [place] # (Auto) 0.4 K/mm3 (0.0-0.8) 02/13/22: Eos # (Auto) 0.1 K/mm3 (0.0-0.4) 02/13/22: Baso # (Auto) 0.0 K/mm3 (0.0-0.1) 02/13/22: Seg Neutrophils % 57.9 % (40.0-70.0) 02/13/22: Seg Neutrophils # 2.4 K/mm3 (1.8-7.7) 02/13/22: Sodium 138 mmol/L (137-145) 02/13/22: Potassium 4.1 mmol/L (3.6-5.0) 02/13/22: Chloride 105.8 mmol/L (98-107) 02/13/22 23:31 Carbon Dioxide 18 mmol/L (22-30) L 02/13/22 23:31 Anion Gap 18 mmol/L 02/13/22 23:31 BUN 22 mg/dL (9-20) H 02/13/22 23:31 Creatinine 0.6 mg/dL (0.8-1.3) L 02/13/22 23:31 Estimated GFR > 60 ml/min 02/13/22 23:31 BUN/Creatinine Ratio 37 % 02/13/22 23:31 Glucose 103 mg/dL (75-100) H 02/13/22 23:31 POC Glucose 112 mg/dL (70-105) H 02/15/22 08:18 Hemoglobin A1c 5.4 % (4-6) 02/13/22 23:31 Calcium 8.2 mg/dL (8.4-10.2) L 02/13/22 23:31 Total Bilirubin 0.50 mg/dL (0.1-1.2) 02/13/22 23:31 AST 21 units/L (5-40) 02/13/22 23:31 ALT 16 units/L (7-56) 02/13/22 23:31 Alkaline Phosphatase 80 units/L (35-129) 02/13/22 23:31 Total Protein 6.5 g/dL (6.3-8.2) 02/13/22 23:31 Albumin 3.5 g/dL (3.9-5) L 02/13/22 23:31 Albumin/Globulin Ratio 1.2 % 02/13/22 23:31 Triglycerides 47 mg/dL (2-149) 02/13/22 23:31 Cholesterol 106 mg/dL (50-199) 02/13/22 23:31 LDL Cholesterol Direct 62 mg/dL (50-130) 02/13/22 23:31 HDL Cholesterol 37 mg/dL (40-59) L 02/13/22 23:31 Cholesterol/HDL Ratio 2.86 % 02/13/22 23:31 TSH 0.115 mlU/mL (0.270-4.200) L 02/13/22 23:31 Hanson/IV: Voiding Method Toilet Active Medications - Current Medications Current Medications: Generic Name Dose Route Start Last Admin Trade Name Freq PRN Reason Stop Dose Admin Amlodipine Besylate 5 mg 02/14/22 10:00 02/16/22 09:09 Amlodipine 5 Mg Tab PO 5 mg DAILY SHASHI Administration Arformoterol Tartrate 15 mcg 02/14/22 08:00 02/16/22 07:49 Arformoterol 15 Mcg/2 Ml Nebu IH 15 mcg Q12HRT SHASHI Administration Aspirin 81 mg 02/14/22 10:00 02/16/22 09:09 Aspirin 81 Mg Tab Chew PO 81 mg QDAY SHASHI Administration Atorvastatin Calcium 20 mg 02/13/22 22:00 02/15/22 21:45 Atorvastatin 20 Mg Tab PO 20 mg QHS SHASHI Administration Benzonatate 100 mg 02/13/22 20:52 Benzonatate 100 Mg Cap PO Q8HR PRN Cough Budesonide 1 mg 02/14/22 08:00 02/16/22 07:49 Budesonide 0.5 Mg/2 Ml Nebu IH 0.5 mg Q12HRT SHASHI Administration Carisoprodol 350 mg 02/14/22 08:00 02/16/22 14:19 Carisoprodol 350 Mg Tab PO 350 mg TID SHASHI Administration Cetirizine HCl 10 mg 02/14/22 10:00 02/16/22 09:09 Cetirizine 10 Mg Tab PO 10 mg QDAY SHASHI Administration Cyclobenzaprine HCl 10 mg 02/13/22 20:52 Cyclobenzaprine 10 Mg Tab PO Q8H PRN Muscle Spasm Escitalopram Oxalate 5 mg 02/14/22 10:00 02/16/22 09:09 Escitalopram 10 Mg Tab PO 5 mg QDAY SHASHI Administration Mirtazapine 15 mg 02/16/22 22:00 Mirtazapine 15 Mg Tab PO QHS SHASHI Paliperidone Palmitate 234 mg 02/17/22 09:00 Paliperidone Palmitate 234 Mg/1.5 Ml Syringe IM 02/17/22 09:01 ONCE ONE
[2022-02-16] MEDS: MIRTAZAPINE 15 MG TAB PO SCH (21:10)
[2022-02-16] MEDS: BENZONATATE 100 MG CAP PO PRN (21:10)
--- NOTE | 2022-02-17 08:18 | Progress Note ---
Subjective Date of service: 02/17/22 Subjective Comment: 02/17/22:The patient was seen this morning. He was angry about discontinuing his Seroquel; the patient agreed on starting Invega sustenna and was educated about polypharmacy. He continues to endorse depression and suicidal ideation. He continues to reports auditory hallucinations. 02/16/22: The patient was seen this morning. The patient endorses suicidal ideation with a plan " to shoot myself." he reports having auditory hallucinatio ns " voices telling me to kill myself." 02/15/22: The patient was seen this morning. He reports that he is not doing well. the patient endorses suicidal ideation with a plan "Not to shoot myself." he reports having auditory hallucinations " voices telling me to kill myself.":" REVIEW OF SYSTEMS Constitutional: Negative for weight loss ENT: Negative for stridor Respiratory: Negative for cough or hemoptysis All other systems reviewed and are negative MENTAL STATUS EXAMINATION General Appearance and Behavior: Age appropriate, good hygiene, wearing appropriate clothes. calm, cooperative Cooperation: cooperative Psychomotor Behavior: Psychomotor normal Mood: depressed Affect and affective range: congruent with stated mood Thought Process: illogical Thought Content: hallucinations, SI Speech: Normal volume, Regular rate and rhythm Suicidal Ideation: yes Homicidal Ideation: Denies Hallucinations: Auditory Delusions: none elicited Impulse Control: impaired Insight and Judgment: Limited Memory: limited Attention: Attentive Orientation: alert and oriented Assessment and Plan (1) Schizophrenia (2) Cocaine Dependence Treatment Plan Patient admitted for inpatient psychiatric evaluation, medication adjustment and close monitoring The patient's behavior, mood, sleep and appetite will be closely monitored. Patient enrolled in individual and group therapeutic sessions and encouraged to attend. Patient provided with a safe and structured environment. Patient's physical health needs will be addressed by the Hospitalist. Hospitalist Consulted Labs including CBC, CMP, Lipid profile and Hemoglobin A1C levels ordered for baseline reference Social Assessment will be completed and the [facility] Manager will work with patient and family to ensure a suitable and safe disposition Medication adjustment will be made as clinically indicated Continue Lexapro 5mg po daily Continue home meds Usual Wellness Jew/Preservation: - Start Trazodone 50 mg po QHS & 50 mg po QHS PRN between 10 PM & 2 AM for insomnia - Start Melatonin 5 mg po QHS to promote circadian rhythm The patient agreed on the treatment plan, understood the risk, benefit, alternative treatment, potential consequence of no treatment, and gave informed consent. Estimated days:4 Post hospital care: primary care provider, psychiatric provider Case staffed with Dr. Bustillo Legal Status: Voluntary Reaction to Hospitalization: Accepting Medications and Allergies Medications and Allergies Allergies Allergy/AdvReac Type Severity Reaction Status Date / Time prochlorperazine Allergy Rash Verified 10/18/21 09:09 [From Compazine] prochlorperazine edisylate Allergy Swelling Verified 10/18/21 09:09 [From Compazine] prochlorperazine maleate Allergy Swelling Verified 10/18/21 09:09 [From Compazine] tramadol Allergy Swelling Verified 10/18/21 09:09 Home Medications Medication Instructions Recorded Confirmed Last Taken Type ARIPiprazole [Abilify TAB] 15 mg PO DAILY 09/07/15 11/20/15 09/07/15 History Citalopram [celeXA] 40 mg PO QDAY 09/07/15 11/20/15 09/07/[address] [Robles Aiken] 75 mg PO QDAY 09/07/15 11/20/15 09/07/15 History Hydroxyzine HCl [hydrOXYzine] 50 mg PO QDAY 09/07/15 11/20/15 09/07/15 History Ipratropium (Nf) [Atrovent HFA 2 puff IH Q6HR PRN 09/07/15 11/20/15 09/07/15 History 17MCG/PUFF] Meloxicam 15 mg PO QDAY 09/07/15 11/20/15 09/07/15 History Mirtazapine [Remeron] 15 mg PO QDAY 09/07/15 11/20/15 09/07/15 History cloNIDine [Catapres] 0.2 mg PO BID 09/07/15 11/20/15 09/07/15 History metFORMIN [Glucophage] 500 mg PO BID 09/07/15 11/20/15 09/07/15 History methOCARBAMOL [Robaxin TAB] 500 mg PO QID 09/07/15 11/20/15 09/07/15 History raNITIdine HCl [Zantac] 150 mg PO QDAY 09/07/15 11/20/15 09/07/15 History traZODone [Desyrel] 150 mg PO QHS 09/07/15 11/20/15 09/07/15 History Aspirin [Aspirin BABY CHEW TAB] 81 mg PO QDAY 11/20/15 11/20/15 Unknown History Esomeprazole Magnesium [NexIUM] 40 mg PO BID 11/20/15 11/20/15 Unknown History Ibuprofen [Motrin] 800 mg PO Q8HR PRN 11/20/15 11/20/15 Unknown History Nitroglycerin [Nitrostat] 0.4 mg SL Q5M PRN 11/20/15 11/20/15 Unknown History Oxycodone HCl/Acetaminophen 1 each PO Q6HR PRN 11/20/15 11/20/15 Unknown History [Percocet 10/325 mg] Promethazine [Phenergan TAB] 25 mg PO Q8HR PRN 11/20/15 11/20/15 Unknown History Quetiapine Fumarate [SEROquel XR] 400 mg PO QHS 11/20/15 11/20/15 Unknown History Zolpidem (Nf) [Ambien] 10 mg PO BID 11/20/15 11/20/15 Unknown History carisoprodoL [Soma] 350 mg PO TID 11/20/15 11/20/15 Unknown History diphenhydrAMINE [Benadryl CAP] 50 mg PO Q8HR PRN 11/20/15 11/20/15 Unknown History lisinopriL [Zestril TAB] 5 mg PO QDAY #30 tablet 11/22/15 Unknown Rx Azithromycin 250 mg PO DAILY #6 tablet 11/10/18 Unknown Rx predniSONE [Deltasone] 40 mg PO QDAY 4 Days #8 tab 11/10/18 Unknown Rx Albuterol Sulfate [Ventolin HFA] 2 puff IH Q4H PRN #1 hfa.aer.ad 02/06/19 Unknown Rx Benzonatate [Tessalon Perles] 100 mg PO Q8HR PRN #30 capsule 02/06/19 Unknown Rx predniSONE [predniSONE 10mg (21 10 mg PO QDAY #1 tab.ds.pk 02/06/19 Unknown Rx tabs)] Budesonide/Formoterol Fumarate 10.2 gm IH BID #1 hfa.aer.ad 02/15/19 Unknown Rx [Symbicort 80-4.5 Mcg Inhaler] Cetirizine HCl [ZyrTEC] 10 mg PO QDAY #30 capsule 02/15/19 Unknown Rx Ondansetron [Zofran Odt] 4 mg PO Q8HR #12 tab.rapdis 02/15/19 Unknown Rx Ibuprofen [Motrin 800 MG tab] 800 mg PO Q8HR PRN #14 tablet 01/01/20 Unknown Rx Cyclobenzaprine [Flexeril 10 MG 10 mg PO Q8H PRN #21 01/12/20 Unknown Rx TAB] Ibuprofen [Motrin] 600 mg PO Q8H PRN #24 tablet 01/12/20 Unknown Rx Menthol/Camphor [[place] Hollister 1 applic TP BID #18 oint...g. 07/17/20 Unknown Rx Ointment] Naproxen [EC-Naprosyn] 500 mg PO BID PRN #14 tablet. 07/17/20 Unknown Rx Azithromycin [Zithromax Z-PAVITHRA] 0 mg PO DAILY #1 pack 07/22/20 Unknown Rx Benzonatate [Tessalon Perles] 100 mg PO Q8HR PRN #20 capsule 07/22/20 Unknown Rx Ibuprofen [Motrin 600 MG tab] 600 mg PO Q8H PRN #30 tablet 10/29/20 Unknown Rx Amlodipine Besylate [Norvasc] 5 mg PO DAILY 09/27/21 09/27/21 Unknown History AtorvaSTATin [Lipitor] 20 mg PO QHS 09/27/21 09/27/21 Unknown History Fluticasone Propion/Salmeterol 1 inhalation INNOSTRIL BID 09/27/21 09/27/21 Unknown History [Fluticasone-Salmeterol 500-50] Meloxicam [Mobic] 7.5 mg PO QDAY 09/27/21 09/27/21 Unknown History metFORMIN [Glucophage] 500 mg PO BID 09/27/21 09/27/21 Unknown History Arformoterol Nebu [Brovana Nebu] 15 mcg IH Q12HRT ml 10/04/21 Unknown Rx Budesonide [Pulmicort Respules] 1 mg IH Q12HRT nebu 10/04/21 Unknown Rx Divalproex [Raissa Aiken] 125 mg PO BID 30 Days #60 tablet 10/04/21 Unknown Rx Gabapentin 300 mg PO BID 30 Days #60 capsule 10/04/21 Unknown Rx Ibuprofen [Motrin 800 MG tab] 800 mg PO Q8H PRN tablet 10/04/21 Unknown Rx QUEtiapine [SEROquel] 25 mg PO 1200 30 Days #30 tablet 10/04/21 Unknown Rx QUEtiapine [SEROquel] 25 mg PO QAM@0800 30 Days #30 10/04/21 Unknown Rx tablet QUEtiapine [SEROquel] 400 mg PO HS 30 Days #30 tablet 10/04/21 Unknown Rx Active Meds: Active Medications Amlodipine Besylate (Amlodipine 5 Mg Tab) 5 mg PO DAILY [facility] Last Admin: 02/16/22 09:09 Dose: 5 mg Arformoterol Tartrate (Arformoterol 15 Mcg/2 Ml Nebu) 15 mcg IH Q12HRT [facility] Last Admin: 02/16/22 07:49 Dose: 15 mcg Aspirin (Aspirin 81 Mg Tab Chew) 81 mg PO QDAY [facility] Last Admin: 02/16/22 09:09 Dose: 81 mg Atorvastatin Calcium (Atorvastatin 20 Mg Tab) 20 mg PO QHS [facility] Last Admin: 02/16/22 21:10 Dose: 20 mg Benzonatate (Benzonatate 100 Mg Cap) 100 mg PO Q8HR PRN PRN Reason: Cough Last Admin: 02/16/22 21:10 Dose: 100 mg Budesonide (Budesonide 0.5 Mg/2 Ml Nebu) 1 mg IH Q12HRT [facility] Last Admin: 02/16/22 07:49 Dose: 0.5 mg Carisoprodol (Carisoprodol 350 Mg Tab) 350 mg PO TID [facility] Last Admin: 02/16/22 20:32 Dose: 350 mg Cetirizine HCl (Cetirizine 10 Mg Tab) 10 mg PO QDAY [facility] Last Admin: 02/16/22 09:09 Dose: 10 mg Cyclobenzaprine HCl (Cyclobenzaprine 10 Mg Tab) 10 mg PO Q8H PRN PRN Reason: Muscle Spasm Escitalopram Oxalate (Escitalopram 10 Mg Tab) 5 mg PO QDAY [facility] Last Admin: 02/16/22 09:09 Dose: 5 mg Mirtazapine (Mirtazapine 15 Mg Tab) 15 mg PO QHS [facility] Last Admin: 02/16/22 21:10 Dose: 15 mg Paliperidone Palmitate (Paliperidone Palmitate 234 Mg/1.5 Ml Syringe) 234 mg IM ONCE ONE Stop: 02/17/22 09:01 Results - Results Labs/Vitals: Laboratory Last Values WBC 4.2 K/mm3 (4.5-11.0) L 02/13/22 23: RBC 3.59 M/mm3 (3.65-5.03) L 02/13/22: Hgb 10.7 gm/dl (11.8-15.2) L 02/13/22: Hct 33.5 % (35.5-45.6) L 02/13/22: MCV 93 fl (84-94) 02/13/22: MCH 30 pg (28-32) 02/13/22: MCHC 32 % (32-34) 02/13/22: RDW 22.2 % (13.2-15.2) H 02/13/22: Plt Count 241 K/mm3 (140-440) 02/13/22: Lymph % (Auto) 28.1 % (13.4-35.0) 02/13/22: [place] % (Auto) 10.6 % (0.0-7.3) H 02/13/22: Eos % (Auto) 2.6 % (0.0-4.3) 02/13/22: Baso % (Auto) 0.8 % (0.0-1.8) 02/13/22: Lymph # (Auto) 1.2 K/mm3 (1.2-5.4) 02/13/22: [place] # (Auto) 0.4 K/mm3 (0.0-0.8) 02/13/22: Eos # (Auto) 0.1 K/mm3 (0.0-0.4) 02/13/22 Baso # (Auto) 0.0 K/mm3 (0.0-0.1) 02/13/22: Seg Neutrophils % 57.9 % (40.0-70.0) 02/13/22: Seg Neutrophils # 2.4 K/mm3 (1.8-7.7) 04/13/22 23:31 Sodium 138 mmol/L (137-145) 02/13/22 23:31 Potassium 4.1 mmol/L (3.6-5.0) 02/13/22 23:31 Chloride 105.8 mmol/L (98-107) 02/13/22 23:31 Carbon Dioxide 18 mmol/L (22-30) L 02/13/22 23:31 Anion Gap 18 mmol/L 02/13/22 23:31 BUN 22 mg/dL (9-20) H 02/13/22 23:31 Creatinine 0.6 mg/dL (0.8-1.3) L 02/13/22 23:31 Estimated GFR > 60 ml/min 02/13/22 23:31 BUN/Creatinine Ratio 37 % 02/13/22 23:31 Glucose 103 mg/dL (75-100) H 02/13/22 23:31 POC Glucose 112 mg/dL (70-105) H 02/15/22 08:18 Hemoglobin A1c 5.4 % (4-6) 02/13/22 23:31 Calcium 8.2 mg/dL (8.4-10.2) L 02/13/22 23:31 Total Bilirubin 0.50 mg/dL (0.1-1.2) 02/13/22 23:31 AST 21 units/L (5-40) 02/13/22 23:31 ALT 16 units/L (7-56) 02/13/22 23:31 Alkaline Phosphatase 80 units/L (35-129) 02/13/22 23:31 Total Protein 6.5 g/dL (6.3-8.2) 02/13/22 23:31 Albumin 3.5 g/dL (3.9-5) L 02/13/22 23:31 Albumin/Globulin Ratio 1.2 % 02/13/22 23:31 Triglycerides 47 mg/dL (2-149) 02/13/22 23:31 Cholesterol 106 mg/dL (50-199) 02/13/22 23:31 LDL Cholesterol Direct 62 mg/dL (50-130) 02/13/22 23:31 HDL Cholesterol 37 mg/dL (40-59) L 02/13/22 23:31 Cholesterol/HDL Ratio 2.86 % 02/13/22 23:31 TSH 0.115 mlU/mL (0.270-4.200) L 02/13/22 23:31 Last Vital Signs Temp 98.6 F 02/17/22 07:48 Pulse 90 02/17/22 07:48 Resp 16 02/17/22 07:48 BP 118/98 02/17/22 07:48 Pulse Ox 98 02/17/22 07:48
[2022-02-17] MEDS: CARISOPRODOL 350 MG TAB PO SCH ×3 (08:50→20:11)
[2022-02-17] MEDS ORDERED: PALIPERIDONE PALMITATE 234 MG/1.5 ML SYRINGE IM ONE (09:00)
[2022-02-17] MEDS: amLODIPine 5 MG TAB PO SCH (09:13)
[2022-02-17] MEDS: CETIRIZINE 10 MG TAB PO SCH (09:13)
[2022-02-17] MEDS: ASPIRIN 81 MG TAB CHEW PO SCH (09:13)
[2022-02-17] MEDS: BENZONATATE 100 MG CAP PO PRN (09:19)
[2022-02-17] MEDS: ESCITALOPRAM 10 MG TAB PO SCH (10:28)
--- NOTE | 2022-02-17 20:46 | Progress Note ---
Assessment and Plan - Patient Problems (1) Cerebral atherosclerosis Current Visit: Yes Status: Acute Plan to address problem: Risk factor reduction, antiplatelet therapy as clinical indicated. (2) Malnutrition Current Visit: Yes Status: Acute Qualifiers: Protein-calorie malnutrition severity: moderate Plan to address problem: Increase protein intake, dietary supplementation. (3) Psychosis Current Visit: Yes Status: Acute Qualifiers: Schizophrenia type: unspecified Plan to address problem: Continue medical management. (4) Schizophrenia Current Visit: Yes Status: Acute Qualifiers: Schizophrenia type: unspecified Qualified Code(s): F20.9 - Schizophrenia, unspecified Plan to address problem: Continue medical management. (5) Vascular dementia with behavioral disturbance Current Visit: Yes Status: Acute Plan to address problem: Verbal prompting, verbal redirection, benzodiazepine therapy as clinically indicated. (6) Advance care planning Current Visit: Yes Status: Acute Plan to address problem: Disease education conducted, care plan discussed, diagnoses discussed, prognosis discussed, patient is full code. Patient acknowledges understanding and agreement with care plan, +30 minutes. History Interval history: 61 YO Male with Vascular Dementia with Behavioral Disturbance, Cerebral Atherosclerosis, Malnutrition, HTN, Schizophrenia, Psychosis admitted to [facility] for psychiatric stabilization. Patient seen and evaluated in the recreation room. No reported nursing events. Patient remains at baseline level of cognition and function. Hospitalist Physical - Constitutional Vitals: Temp Pulse Resp BP Pulse Ox 97.4 F L 103 H 17 113/86 96 02/17/22 19:24 02/17/22 19:24 02/17/22 19:24 02/17/22 19:24 02/17/22 19:24 General appearance: Present: no acute distress - EENT Eyes: Present: PERRL ENT: hearing intact - Neck Neck: Present: supple - Respiratory Respiratory effort: normal Respiratory: bilateral: CTA - Cardiovascular Rhythm: regular Heart Sounds: Present: S1 & S2 - Extremities Extremities: no ischemia Peripheral Pulses: within normal limits - Abdominal General gastrointestinal: soft, non-tender, non-distended - Integumentary Integumentary: Present: clear, dry - Psychiatric Psychiatric: cooperative - Neurologic Neurologic: CNII-XII intact Results - Labs CBC & Chem 7: 02/13/22 23:31 02/13/22 23:31 Labs: Laboratory Last Values WBC 4.2 K/mm3 (4.5-11.0) L 02/13/22 23: RBC 3.59 M/mm3 (3.65-5.03) L 02/13/22 23: Hgb 10.7 gm/dl (11.8-15.2) L 02/13/22 23: Hct 33.5 % (35.5-45.6) L 02/13/22 23: MCV 93 fl (84-94) 02/13/22 23: MCH 30 pg (28-32) 02/13/22: MCHC 32 % (32-34) 02/13/22 23: RDW 22.2 % (13.2-15.2) H 02/13/22: Plt Count 241 K/mm3 (140-440) 02/13/22: Lymph % (Auto) 28.1 % (13.4-35.0) 02/13/22: [place] % (Auto) 10.6 % (0.0-7.3) H 02/13/22: Eos % (Auto) 2.6 % (0.0-4.3) 02/13/22 23: Baso % (Auto) 0.8 % (0.0-1.8) 02/13/22: Lymph # (Auto) 1.2 K/mm3 (1.2-5.4) 02/13/22 23: [place] # (Auto) 0.4 K/mm3 (0.0-0.8) 02/13/22: Eos # (Auto) 0.1 K/mm3 (0.0-0.4) 02/13/22: Baso # (Auto) 0.0 K/mm3 (0.0-0.1) 02/13/22 23: Seg Neutrophils % 57.9 % (40.0-70.0) 02/13/22: Seg Neutrophils # 2.4 K/mm3 (1.8-7.7) 02/13/22 23: Sodium 138 mmol/L (137-145) 02/13/22 23: Potassium 4.1 mmol/L (3.6-5.0) 02/13/22: Chloride 105.8 mmol/L (98-107) 02/13/22 23:31 Carbon Dioxide 18 mmol/L (22-30) L 02/13/22 23:31 Anion Gap 18 mmol/L 02/13/22 23:31 BUN 22 mg/dL (9-20) H 02/13/22 23:31 Creatinine 0.6 mg/dL (0.8-1.3) L 02/13/22 23:31 Estimated GFR > 60 ml/min 02/13/22 23:31 BUN/Creatinine Ratio 37 % 02/13/22 23:31 Glucose 103 mg/dL (75-100) H 02/13/22 23:31 POC Glucose 148 mg/dL (70-105) H 02/17/22 06:04 Hemoglobin A1c 5.4 % (4-6) 02/13/22 23:31 Calcium 8.2 mg/dL (8.4-10.2) L 02/13/22 23:31 Total Bilirubin 0.50 mg/dL (0.1-1.2) 02/13/22 23:31 AST 21 units/L (5-40) 02/13/22 23:31 ALT 16 units/L (7-56) 02/13/22 23:31 Alkaline Phosphatase 80 units/L (35-129) 02/13/22 23:31 Total Protein 6.5 g/dL (6.3-8.2) 02/13/22 23:31 Albumin 3.5 g/dL (3.9-5) L 02/13/22 23:31 Albumin/Globulin Ratio 1.2 % 02/13/22 23:31 Triglycerides 47 mg/dL (2-149) 02/13/22 23:31 Cholesterol 106 mg/dL (50-199) 02/13/22 23:31 LDL Cholesterol Direct 62 mg/dL (50-130) 02/13/22 23:31 HDL Cholesterol 37 mg/dL (40-59) L 02/13/22 23:31 Cholesterol/HDL Ratio 2.86 % 02/13/22 23:31 TSH 0.115 mlU/mL (0.270-4.200) L 02/13/22 23:31 [place]/IV: Voiding Method Toilet Active Medications - Current Medications Current Medications: Generic Name Dose Route Start Last Admin Trade Name Freq PRN Reason Stop Dose Admin Amlodipine Besylate 5 mg 02/14/22 10:00 02/17/22 09:13 Amlodipine 5 Mg Tab PO 5 mg DAILY SHASHI Administration Arformoterol Tartrate 15 mcg 02/14/22 08:00 02/16/22 07:49 Arformoterol 15 Mcg/2 Ml Nebu IH 15 mcg Q12HRT SHASHI Administration Aspirin 81 mg 02/14/22 10:00 02/17/22 09:13 Aspirin 81 Mg Tab Chew PO 81 mg QDAY SHASHI Administration Atorvastatin Calcium 20 mg 02/13/22 22:00 02/16/22 21:10 Atorvastatin 20 Mg Tab PO 20 mg QHS SHASHI Administration Benzonatate 100 mg 02/13/22 20:52 02/17/22 09:19 Benzonatate 100 Mg Cap PO 100 mg Q8HR PRN Administration Cough Budesonide 1 mg 02/14/22 08:00 02/16/22 07:49 Budesonide 0.5 Mg/2 Ml Nebu IH 0.5 mg Q12HRT SHASHI Administration Carisoprodol 350 mg 02/14/22 08:00 02/17/22 20:11 Carisoprodol 350 Mg Tab PO 350 mg TID SHASHI Administration Cetirizine HCl 10 mg 02/14/22 10:00 02/17/22 09:13 Cetirizine 10 Mg Tab PO 10 mg QDAY SHASHI Administration Cyclobenzaprine HCl 10 mg 02/13/22 20:52 Cyclobenzaprine 10 Mg Tab PO Q8H PRN Muscle Spasm Escitalopram Oxalate 5 mg 02/14/22 10:00 02/17/22 10:28 Escitalopram 10 Mg Tab PO 5 mg QDAY SHASHI Administration Mirtazapine 15 mg 02/16/22 22:00 02/16/22 21:10 Mirtazapine 15 Mg Tab PO 15 mg QHS SHASHI Administration
[2022-02-17] MEDS: MIRTAZAPINE 15 MG TAB PO SCH (21:29)
[2022-02-18] MEDS: BUDESONIDE 0.5 MG/2 ML NEBU IH SCH ×4 (07:50→20:27)
[2022-02-18] MEDS: ARFORMOTEROL 15 MCG/2 ML NEBU IH SCH ×4 (07:51→20:27)
--- NOTE | 2022-02-18 08:58 | Progress Note ---
Subjective Date of service: 02/18/22 Subjective Comment: 02/18/22: The patient was seen this morning. The patient reports having difficulty with sleep. He continues to endorse depression with suicidal ideation. He continues to reports auditory hallucinations. 02/17/22:The patient was seen this morning. He was angry about discontinuing his Seroquel; the patient agreed on starting Invega sustenna and was educated about polypharmacy. He continues to endorse depression and suicidal ideation. He continues to reports auditory hallucinations. 02/16/22: The patient was seen this morning. The patient endorses suicidal ideation with a plan " to shoot myself." he reports having auditory hallucinations " voices telling me to kill myself." 02/15/22: The patient was seen this morning. He reports that he is not doing well. the patient endorses suicidal ideation with a plan "Not to shoot myself." he reports having auditory hallucinations " voices telling me to kill myself.":" REVIEW OF SYSTEMS Constitutional: Negative for weight loss ENT: Negative for stridor Respiratory: Negative for cough or hemoptysis All other systems reviewed and are negative MENTAL STATUS EXAMINATION General Appearance and Behavior: Age appropriate, good hygiene, wearing appropriate clothes. calm, cooperative Cooperation: cooperative Psychomotor Behavior: Psychomotor normal Mood: depressed Affect and affective range: congruent with stated mood Thought Process: goal directed Thought Content: hallucinations, SI Speech: Normal volume, Regular rate and rhythm Suicidal Ideation: yes Homicidal Ideation: Denies Hallucinations: Auditory Delusions: none elicited Impulse Control: impaired Insight and Judgment: Limited Memory: limited Attention: Attentive Orientation: alert and oriented Assessment and Plan (1) Schizophrenia (2) Cocaine Dependence Treatment Plan Patient admitted for inpatient psychiatric evaluation, medication adjustment and close monitoring The patient's behavior, mood, sleep and appetite will be closely monitored. Patient enrolled in individual and group therapeutic sessions and encouraged to attend. Patient provided with a safe and structured environment. Patient's physical health needs will be addressed by the Hospitalist. Hospitalist Consulted Labs including CBC, CMP, Lipid profile and Hemoglobin A1C levels ordered for baseline reference Social Assessment will be completed and the Technology Analyst will work with patient and family to ensure a suitable and safe disposition Medication adjustment will be made as clinically indicated Continue Lexapro 5mg po daily Continue home meds Usual Wellness Religion/Preservation: - Start Trazodone 50 mg po QHS & 50 mg po QHS PRN between 10 PM & 2 AM for insomnia - Start Melatonin 5 mg po QHS to promote circadian rhythm The patient agreed on the treatment plan, understood the risk, benefit, alternative treatment, potential consequence of no treatment, and gave informed consent. Estimated days:4 Post hospital care: primary care provider, psychiatric provider Case staffed with Dr. Bustillo Legal Status: Voluntary Reaction to Hospitalization: Accepting Medications and Allergies Medications and Allergies Allergies Allergy/AdvReac Type Severity Reaction Status Date / Time prochlorperazine Allergy Rash Verified 10/18/21 09:09 [From Compazine] prochlorperazine edisylate Allergy Swelling Verified 10/18/21 09:09 [From Compazine] prochlorperazine maleate Allergy Swelling Verified 10/18/21 09:09 [From Compazine] tramadol Allergy Swelling Verified 10/18/21 09:09 Home Medications Medication Instructions Recorded Confirmed Last Taken Type ARIPiprazole [Abilify TAB] 15 mg PO DAILY 09/07/15 11/20/15 09/07/15 History Citalopram [celeXA] 40 mg PO QDAY 09/07/15 11/20/15 09/07/[address] [[place]] 75 mg PO QDAY 09/07/15 11/20/15 09/07/15 History Hydroxyzine HCl [hydrOXYzine] 50 mg PO QDAY 09/07/15 11/20/15 09/07/15 History Ipratropium (Nf) [Atrovent HFA 2 puff IH Q6HR PRN 09/07/15 11/20/15 09/07/15 History 17MCG/PUFF] Meloxicam 15 mg PO QDAY 09/07/15 11/20/15 09/07/15 History Mirtazapine [Remeron] 15 mg PO QDAY 09/07/15 11/20/15 09/07/15 History cloNIDine [Catapres] 0.2 mg PO BID 09/07/15 11/20/15 09/07/15 History metFORMIN [Glucophage] 500 mg PO BID 09/07/15 11/20/15 09/07/15 History methOCARBAMOL [Robaxin TAB] 500 mg PO QID 09/07/15 11/20/15 09/07/15 History raNITIdine HCl [Zantac] 150 mg PO QDAY 09/07/15 11/20/15 09/07/15 History traZODone [Desyrel] 150 mg PO QHS 09/07/15 11/20/15 09/07/15 History Aspirin [Aspirin BABY CHEW TAB] 81 mg PO QDAY 11/20/15 11/20/15 Unknown History Esomeprazole Magnesium [NexIUM] 40 mg PO BID 11/20/15 11/20/15 Unknown History Ibuprofen [Motrin] 800 mg PO Q8HR PRN 11/20/15 11/20/15 Unknown History Nitroglycerin [Nitrostat] 0.4 mg SL Q5M PRN 11/20/15 11/20/15 Unknown History Oxycodone HCl/Acetaminophen 1 each PO Q6HR PRN 11/20/15 11/20/15 Unknown History [Percocet 10/325 mg] Promethazine [Phenergan TAB] 25 mg PO Q8HR PRN 11/20/15 11/20/15 Unknown History Quetiapine Fumarate [SEROquel XR] 400 mg PO QHS 11/20/15 11/20/15 Unknown History Zolpidem (Nf) [Ambien] 10 mg PO BID 11/20/15 11/20/15 Unknown History carisoprodoL [Soma] 350 mg PO TID 11/20/15 11/20/15 Unknown History diphenhydrAMINE [Benadryl CAP] 50 mg PO Q8HR PRN 11/20/15 11/20/15 Unknown History lisinopriL [Zestril TAB] 5 mg PO QDAY #30 tablet 11/22/15 Unknown Rx Azithromycin 250 mg PO DAILY #6 tablet 11/10/18 Unknown Rx predniSONE [Deltasone] 40 mg PO QDAY 4 Days #8 tab 11/10/18 Unknown Rx Albuterol Sulfate [Ventolin HFA] 2 puff IH Q4H PRN #1 hfa.aer.ad 02/06/19 Unknown Rx Benzonatate [Tessalon Perles] 100 mg PO Q8HR PRN #30 capsule 02/06/19 Unknown Rx predniSONE [predniSONE 10mg (21 10 mg PO QDAY #1 tab.ds.pk 02/06/19 Unknown Rx tabs)] Budesonide/Formoterol Fumarate 10.2 gm IH BID #1 hfa.aer.ad 02/15/19 Unknown Rx [Symbicort 80-4.5 Mcg Inhaler] Cetirizine HCl [ZyrTEC] 10 mg PO QDAY #30 capsule 02/15/19 Unknown Rx Ondansetron [Zofran Odt] 4 mg PO Q8HR #12 tab.rapdis 02/15/19 Unknown Rx Ibuprofen [Motrin 800 MG tab] 800 mg PO Q8HR PRN #14 tablet 01/01/20 Unknown Rx Cyclobenzaprine [Flexeril 10 MG 10 mg PO Q8H PRN #21 01/12/20 Unknown Rx TAB] Ibuprofen [Motrin] 600 mg PO Q8H PRN #24 tablet 01/12/20 Unknown Rx Menthol/Camphor [[place] 1 applic TP BID #18 oint...g. 07/17/20 Unknown Rx Ointment] Naproxen [EC-Naprosyn] 500 mg PO BID PRN #14 tablet. 07/17/20 Unknown Rx Azithromycin [Zithromax Z-PAVITHRA] 0 mg PO DAILY #1 pack 07/22/20 Unknown Rx Benzonatate [Tessalon Perles] 100 mg PO Q8HR PRN #20 capsule 07/22/20 Unknown Rx Ibuprofen [Motrin 600 MG tab] 600 mg PO Q8H PRN #30 tablet 10/29/20 Unknown Rx Amlodipine Besylate [Norvasc] 5 mg PO DAILY 09/27/21 09/27/21 Unknown History AtorvaSTATin [Lipitor] 20 mg PO QHS 09/27/21 09/27/21 Unknown History Fluticasone Propion/Salmeterol 1 inhalation INNOSTRIL BID 09/27/21 09/27/21 Unknown History [Fluticasone-Salmeterol 500-50] Meloxicam [Mobic] 7.5 mg PO QDAY 09/27/21 09/27/21 Unknown History metFORMIN [Glucophage] 500 mg PO BID 09/27/21 09/27/21 Unknown History Arformoterol Nebu [Brovana Nebu] 15 mcg IH Q12HRT ml 10/04/21 Unknown Rx Budesonide [Pulmicort Respules] 1 mg IH Q12HRT nebu 10/04/[address] [Depakote Dr] 125 mg PO BID 30 Days #60 tablet 10/04/21 Unknown Rx Gabapentin 300 mg PO BID 30 Days #60 capsule 10/04/21 Unknown Rx Ibuprofen [Motrin 800 MG tab] 800 mg PO Q8H PRN tablet 10/04/21 Unknown Rx QUEtiapine [SEROquel] 25 mg PO 1200 30 Days #30 tablet 10/04/21 Unknown Rx QUEtiapine [SEROquel] 25 mg PO QAM@0800 30 Days #30 10/04/21 Unknown Rx tablet QUEtiapine [SEROquel] 400 mg PO HS 30 Days #30 tablet 10/04/21 Unknown Rx Active Meds: Active Medications Amlodipine Besylate (Amlodipine 5 Mg Tab) 5 mg PO DAILY [facility] Last Admin: 02/17/22 09:13 Dose: 5 mg Arformoterol Tartrate (Arformoterol 15 Mcg/2 Ml Nebu) 15 mcg IH Q12HRT [facility] Last Admin: 02/18/22 07:51 Dose: 15 mcg Aspirin (Aspirin 81 Mg Tab Chew) 81 mg PO QDAY [facility] Last Admin: 02/17/22 09:13 Dose: 81 mg Atorvastatin Calcium (Atorvastatin 20 Mg Tab) 20 mg PO QHS [facility] Last Admin: 02/17/22 21:29 Dose: 20 mg Benzonatate (Benzonatate 100 Mg Cap) 100 mg PO Q8HR PRN PRN Reason: Cough Last Admin: 02/17/22 09:19 Dose: 100 mg Budesonide (Budesonide 0.5 Mg/2 Ml Nebu) 1 mg IH Q12HRT [facility] Last Admin: 02/18/22 07:50 Dose: 1 mg Carisoprodol (Carisoprodol 350 Mg Tab) 350 mg PO TID [facility] Last Admin: 02/17/22 20:11 Dose: 350 mg Cetirizine HCl (Cetirizine 10 Mg Tab) 10 mg PO QDAY [facility] Last Admin: 02/17/22 09:13 Dose: 10 mg Cyclobenzaprine HCl (Cyclobenzaprine 10 Mg Tab) 10 mg PO Q8H PRN PRN Reason: Muscle Spasm Escitalopram Oxalate (Escitalopram 10 Mg Tab) 5 mg PO QDAY [facility] Last Admin: 02/17/22 10:28 Dose: 5 mg Mirtazapine (Mirtazapine 30 Mg Tab) 30 mg PO QHS [facility] Results - Results Labs/Vitals: Laboratory Last Values WBC 4.2 K/mm3 (4.5-11.0) L 02/13/22 23: RBC 3.59 M/mm3 (3.65-5.03) L 02/13/22 23: Hgb 10.7 gm/dl (11.8-15.2) L 02/13/22 23: Hct 33.5 % (35.5-45.6) L 02/13/22 23: MCV 93 fl (84-94) 02/13/22 23: MCH 30 pg (28-32) 02/13/22 23: MCHC 32 % (32-34) 02/13/22 23: RDW 22.2 % (13.2-15.2) H 02/13/22 23: Plt Count 241 K/mm3 (140-440) 02/13/22 23: Lymph % (Auto) 28.1 % (13.4-35.0) 02/13/22 23: [place] % (Auto) 10.6 % (0.0-7.3) H 02/13/22 23: Eos % (Auto) 2.6 % (0.0-4.3) 02/13/22 23: Baso % (Auto) 0.8 % (0.0-1.8) 02/13/22 23: Lymph # (Auto) 1.2 K/mm3 (1.2-5.4) 02/13/22 23: [place] # (Auto) 0.4 K/mm3 (0.0-0.8) 02/13/22 23: Eos # (Auto) 0.1 K/mm3 (0.0-0.4) 02/13/22 23: Baso # (Auto) 0.0 K/mm3 (0.0-0.1) 02/13/22 23: Seg Neutrophils % 57.9 % (40.0-70.0) 02/13/22 23: Seg Neutrophils # 2.4 K/mm3 (1.8-7.7) 02/13/22 23: Sodium 138 mmol/L (137-145) 02/13/22 23:31 Potassium 4.1 mmol/L (3.6-5.0) 02/13/22 23:31 Chloride 105.8 mmol/L (98-107) 02/13/22 23:31 Carbon Dioxide 18 mmol/L (22-30) L 02/13/22 23:31 Anion Gap 18 mmol/L 02/13/22 23:31 BUN 22 mg/dL (9-20) H 02/13/22 23:31 Creatinine 0.6 mg/dL (0.8-1.3) L 02/13/22 23:31 Estimated GFR > 60 ml/min 02/13/22 23:31 BUN/Creatinine Ratio 37 % 02/13/22 23:31 Glucose 103 mg/dL (75-100) H 02/13/22 23:31 POC Glucose 101 mg/dL (70-105) 02/18/22 06:58 Hemoglobin A1c 5.4 % (4-6) 02/13/22 23:31 Calcium 8.2 mg/dL (8.4-10.2) L 02/13/22 23:31 Total Bilirubin 0.50 mg/dL (0.1-1.2) 02/13/22 23:31 AST 21 units/L (5-40) 02/13/22 23:31 ALT 16 units/L (7-56) 02/13/22 23:31 Alkaline Phosphatase 80 units/L (35-129) 02/13/22 23:31 Total Protein 6.5 g/dL (6.3-8.2) 02/13/22 23:31 Albumin 3.5 g/dL (3.9-5) L 02/13/22 23:31 Albumin/Globulin Ratio 1.2 % 02/13/22 23:31 Triglycerides 47 mg/dL (2-149) 02/13/22 23:31 Cholesterol 106 mg/dL (50-199) 02/13/22 23:31 LDL Cholesterol Direct 62 mg/dL (50-130) 02/13/22 23:31 HDL Cholesterol 37 mg/dL (40-59) L 02/13/22 23:31 Cholesterol/HDL Ratio 2.86 % 02/13/22 23:31 TSH 0.115 mlU/mL (0.270-4.200) L 04/13/22 23:31 Last Vital Signs Temp 97.4 F L 02/17/22 19:24 Pulse 89 02/18/22 07:54 Resp 16 02/18/22 07:54 BP 113/86 02/17/22 19:24 Pulse Ox 96 02/17/22 19:24
--- NOTE | 2022-02-18 09:56 | Discharge Summary ---
Providers - Providers Date of Admission: 02/13/22 18:09 Date of discharge: 02/19/22 Attending physician: NORY DEJESUS MD 02/13/22 16:18 Consult to Physician [CONS] Routine Comment: Consulting Provider: OTONIEL MIKE Physician Instructions: Reason For Exam: manage medical conditions Primary care physician: DOMONIQUE EDWARDS Hospitalization Reason for admission: suicidal ideation/hallucinations Admitting Diagnosis: F20.9 - SCHIZOPHRENIA, UNSPECIFIED Hospital course: The patient was provided inpatient psychiatric treatment with safe and supportive environment, group/individual therapy, psychiatric medication, medication adjustment, adverse effect monitor, medical evaluation, medical treatment, social service assessment, social support meeting, placement assessment and psycho-education. The patients mood, cognition, behavior, motivation, compliance to treatment and appreciation on family/social support are improved and stabilized. At the time of discharge, the patient had no suicidal ideas, no homicidal ideas, no aggressive thoughts, no endangering behavior and no debilitating adverse effects. The patient agreed on the treatment plan, understood the risk, benefit, alternative treatment, potential consequence of no treatment, and gave informed consent. Progress Note: 02/18/22: The patient was seen this morning. The patient reports having difficulty with sleep. He continues to endorse depression with suicidal ideation. He continues to reports auditory hallucinations. 02/17/22:The patient was seen this morning. He was angry about discontinuing his Seroquel; the patient agreed on starting Invega sustenna and was educated about polypharmacy. He continues to endorse depression and suicidal ideation. He continues to reports auditory hallucinations. 02/16/22: The patient was seen this morning. The patient endorses suicidal ideation with a plan " to shoot myself." he reports having auditory hallucinations " voices telling me to kill myself." 02/15/22: The patient was seen this morning. He reports that he is not doing well. the patient endorses suicidal ideation with a plan "Not to shoot myself." he reports having auditory hallucinations " voices telling me to kill myself.":" Disposition: 30 STILL A PATIENT Allergies/Adverse Reactions: Allergies prochlorperazine [From Compazine] Allergy (Verified 10/18/21 09:09) Rash prochlorperazine edisylate [From Compazine] Allergy (Verified 10/18/21 09:09) Swelling prochlorperazine maleate [From Compazine] Allergy (Verified 10/18/21 09:09) Swelling tramadol Allergy (Verified 10/18/21 09:09) Swelling Vital Signs: Last Vital Signs Temp 97.4 F L 02/17/22 19:24 Pulse 89 02/18/22 07:54 Resp 16 02/18/22 07:54 BP 113/86 02/17/22 19:24 Pulse Ox 96 02/17/22 19:24 Last Lab: Laboratory Last Values WBC 4.2 K/mm3 (4.5-11.0) L 02/13/22 23:31 RBC 3.59 M/mm3 (3.65-5.03) L 02/13/22 23: Hgb 10.7 gm/dl (11.8-15.2) L 02/13/22 23: Hct 33.5 % (35.5-45.6) L 02/13/22 23:31 MCV 93 fl (84-94) 02/13/22 23: MCH 30 pg (28-32) 02/13/22 23: MCHC 32 % (32-34) 02/13/22 23:31 RDW 22.2 % (13.2-15.2) H 02/13/22 23:31 Plt Count 241 K/mm3 (140-440) 02/13/22 23:31 Lymph % (Auto) 28.1 % (13.4-35.0) 02/13/22 23: [place] % (Auto) 10.6 % (0.0-7.3) H 02/13/22 23: Eos % (Auto) 2.6 % (0.0-4.3) 02/13/22 23: Baso % (Auto) 0.8 % (0.0-1.8) 02/13/22 23: Lymph # (Auto) 1.2 K/mm3 (1.2-5.4) 02/13/22 23: [place] # (Auto) 0.4 K/mm3 (0.0-0.8) 02/13/22 23: Eos # (Auto) 0.1 K/mm3 (0.0-0.4) 02/13/22 23:31 Baso # (Auto) 0.0 K/mm3 (0.0-0.1) 02/13/22 23:31 Seg Neutrophils % 57.9 % (40.0-70.0) 02/13/22 23:31 Seg Neutrophils # 2.4 K/mm3 (1.8-7.7) 02/13/22 23:31 Sodium 138 mmol/L (137-145) 02/13/22 23:31 Potassium 4.1 mmol/L (3.6-5.0) 02/13/22 23:31 Chloride 105.8 mmol/L (98-107) 02/13/22 23:31 Carbon Dioxide 18 mmol/L (22-30) L 02/13/22 23:31 Anion Gap 18 mmol/L 02/13/22 23:31 BUN 22 mg/dL (9-20) H 02/13/22 23:31 Creatinine 0.6 mg/dL (0.8-1.3) L 02/13/22 23:31 Estimated GFR > 60 ml/min 02/13/22 23:31 BUN/Creatinine Ratio 37 % 02/13/22 23:31 Glucose 103 mg/dL (75-100) H 02/13/22 23:31 POC Glucose 101 mg/dL (70-105) 02/18/22 06:58 Hemoglobin A1c 5.4 % (4-6) 02/13/22 23:31 Calcium 8.2 mg/dL (8.4-10.2) L 02/13/22 23:31 Total Bilirubin 0.50 mg/dL (0.1-1.2) 02/13/22 23:31 AST 21 units/L (5-40) 02/13/22 23:31 ALT 16 units/L (7-56) 02/13/22 23:31 Alkaline Phosphatase 80 units/L (35-129) 02/13/22 23:31 Total Protein 6.5 g/dL (6.3-8.2) 02/13/22 23:31 Albumin 3.5 g/dL (3.9-5) L 02/13/22 23:31 Albumin/Globulin Ratio 1.2 % 02/13/22 23:31 Triglycerides 47 mg/dL (2-149) 02/13/22 23:31 Cholesterol 106 mg/dL (50-199) 02/13/22 23:31 LDL Cholesterol Direct 62 mg/dL (50-130) 02/13/22 23:31 HDL Cholesterol 37 mg/dL (40-59) L 02/13/22 23:31 Cholesterol/HDL Ratio 2.86 % 02/13/22 23:31 TSH 0.115 mlU/mL (0.270-4.200) L 02/13/22 23:31 Core Measure Documentation - Palliative Care Palliative Care/ Comfort Measures: Not Applicable - Core Measures Any of the following diagnoses?: none - VTE Discharge Requirements Deep Vein Thrombosis/Pulmonary Embolism Present on Admission: No Exam - Constitutional Vitals: Temp Pulse Resp BP Pulse Ox 97.4 F L 89 16 113/86 96 02/17/22 19:24 02/18/22 07:54 02/18/22 07:54 02/17/22 19:24 02/17/22 19:24 Plan Activity: advance as tolerated Weight Bearing Status: Weight Bear as Tolerated Diet: regular Care Plan Goals: Maintain good and stable mental health. Plan of Treatment: The patient should be compliant with medications, not to use drugs and not to dr ink alcohol.The patient understands that if suicidal ideas, homicidal ideas, or any endangering thoughts/behavior arise, they should immediately seek for emergent assistance including but not limited to crisis hot line and emergency room. Follow up with outpatient Psychiatrist and PCP within 7 - 14 days of discharge. Follow up with: DOMONIQUE EDWARDS MD [Primary Care Provider] - 7 Days Prescriptions: Mirtazapine [Remeron 30mg TAB] 30 mg PO QHS 30 Days #30 tablet Divalproex [Depakote ] 125 mg PO BID 30 Days #60 tablet Gabapentin 300 mg PO BID 30 Days #60 capsule Hydroxyzine HCl [hydrOXYzine] 50 mg PO QDAY 30 Days #30 Escitalopram [Lexapro] 10 mg PO QDAY 30 Days #30 tablet
[2022-02-18] MEDS: amLODIPine 5 MG TAB PO SCH (10:10)
[2022-02-18] MEDS: ESCITALOPRAM 10 MG TAB PO SCH (10:10)
[2022-02-18] MEDS: ASPIRIN 81 MG TAB CHEW PO SCH (10:10)
[2022-02-18] MEDS: CETIRIZINE 10 MG TAB PO SCH (10:11)
[2022-02-18] MEDS: CARISOPRODOL 350 MG TAB PO SCH ×3 (10:11→21:19)
--- NOTE | 2022-02-18 11:34 | Progress Note ---
Assessment and Plan - Patient Problems (1) Cerebral atherosclerosis Current Visit: Yes Status: Acute Plan to address problem: Risk factor reduction, antiplatelet therapy as clinical indicated. (2) Malnutrition Current Visit: Yes Status: Acute Qualifiers: Protein-calorie malnutrition severity: moderate Plan to address problem: Increase protein intake, dietary supplementation. (3) Psychosis Current Visit: Yes Status: Acute Qualifiers: Schizophrenia type: unspecified Plan to address problem: Continue medical management. (4) Schizophrenia Current Visit: Yes Status: Acute Qualifiers: Schizophrenia type: unspecified Qualified Code(s): F20.9 - Schizophrenia, unspecified Plan to address problem: Continue medical management. (5) Vascular dementia with behavioral disturbance Current Visit: Yes Status: Acute Plan to address problem: Verbal prompting, verbal redirection, benzodiazepine therapy as clinically indicated. (6) Advance care planning Current Visit: Yes Status: Acute Plan to address problem: Disease education conducted, care plan discussed, diagnoses discussed, prognosis discussed, patient is full code. Patient acknowledges understanding and agreement with care plan, +30 minutes. History Interval history: 61 YO Male with Vascular Dementia with Behavioral Disturbance, Cerebral Atherosclerosis, Malnutrition, HTN, Schizophrenia, Psychosis admitted to [facility] for psychiatric stabilization. Patient seen and evaluated in the recreation room. No reported nursing events. Patient remains at baseline level of cognition and function. Hospitalist Physical - Constitutional Vitals: Temp Pulse Resp BP Pulse Ox 99.1 F 92 H 16 122/86 98 02/18/22 08:20 02/18/22 10:10 02/18/22 08:20 02/18/22 10:10 02/18/22 08:20 General appearance: Present: no acute distress - EENT Eyes: Present: PERRL ENT: hearing intact - Neck Neck: Present: supple - Respiratory Respiratory: bilateral: CTA - Cardiovascular Rhythm: regular Heart Sounds: Present: S1 & S2 - Extremities Extremities: no ischemia Peripheral Pulses: within normal limits - Abdominal General gastrointestinal: soft, non-tender, non-distended - Integumentary Integumentary: Present: warm, dry - Psychiatric Psychiatric: cooperative - Neurologic Neurologic: CNII-XII intact Results - Labs CBC & Chem 7: 02/13/22 23:31 02/13/22 23:31 Labs: Laboratory Last Values WBC 4.2 K/mm3 (4.5-11.0) L 02/13/22 23:31 RBC 3.59 M/mm3 (3.65-5.03) L 02/13/22 23: Hgb 10.7 gm/dl (11.8-15.2) L 02/13/22: Hct 33.5 % (35.5-45.6) L 02/13/22 23: MCV 93 fl (84-94) 02/13/22 23: MCH 30 pg (28-32) 02/13/22: MCHC 32 % (32-34) 02/13/22 23: RDW 22.2 % (13.2-15.2) H 02/13/22: Plt Count 241 K/mm3 (140-440) 02/13/22: Lymph % (Auto) 28.1 % (13.4-35.0) 02/13/22: [place] % (Auto) 10.6 % (0.0-7.3) H 02/13/22: Eos % (Auto) 2.6 % (0.0-4.3) 02/13/22 23: Baso % (Auto) 0.8 % (0.0-1.8) 02/13/22: Lymph # (Auto) 1.2 K/mm3 (1.2-5.4) 02/13/22: [place] # (Auto) 0.4 K/mm3 (0.0-0.8) 02/13/22: Eos # (Auto) 0.1 K/mm3 (0.0-0.4) 02/13/22: Baso # (Auto) 0.0 K/mm3 (0.0-0.1) 02/13/22: Seg Neutrophils % 57.9 % (40.0-70.0) 02/13/22: Seg Neutrophils # 2.4 K/mm3 (1.8-7.7) 02/13/22 23: Sodium 138 mmol/L (137-145) 02/13/22: Potassium 4.1 mmol/L (3.6-5.0) 02/13/22: Chloride 105.8 mmol/L (98-107) 04/13/22 23:31 Carbon Dioxide 18 mmol/L (22-30) L 02/13/22 23:31 Anion Gap 18 mmol/L 02/13/22 23:31 BUN 22 mg/dL (9-20) H 02/13/22 23:31 Creatinine 0.6 mg/dL (0.8-1.3) L 02/13/22 23:31 Estimated GFR > 60 ml/min 02/13/22 23:31 BUN/Creatinine Ratio 37 % 02/13/22 23:31 Glucose 103 mg/dL (75-100) H 02/13/22 23:31 POC Glucose 101 mg/dL (70-105) 02/18/22 06:58 Hemoglobin A1c 5.4 % (4-6) 02/13/22 23:31 Calcium 8.2 mg/dL (8.4-10.2) L 02/13/22 23:31 Total Bilirubin 0.50 mg/dL (0.1-1.2) 02/13/22 23:31 AST 21 units/L (5-40) 02/13/22 23:31 ALT 16 units/L (7-56) 02/13/22 23:31 Alkaline Phosphatase 80 units/L (35-129) 02/13/22 23:31 Total Protein 6.5 g/dL (6.3-8.2) 02/13/22 23:31 Albumin 3.5 g/dL (3.9-5) L 02/13/22 23:31 Albumin/Globulin Ratio 1.2 % 02/13/22 23:31 Triglycerides 47 mg/dL (2-149) 02/13/22 23:31 Cholesterol 106 mg/dL (50-199) 02/13/22 23:31 LDL Cholesterol Direct 62 mg/dL (50-130) 02/13/22 23:31 HDL Cholesterol 37 mg/dL (40-59) L 02/13/22 23:31 Cholesterol/HDL Ratio 2.86 % 02/13/22 23:31 TSH 0.115 mlU/mL (0.270-4.200) L 02/13/22 23:31 [place]/IV: Voiding Method Toilet Active Medications - Current Medications Current Medications: Generic Name Dose Route Start Last Admin Trade Name Freq PRN Reason Stop Dose Admin Amlodipine Besylate 5 mg 02/14/22 10:00 02/18/22 10:10 Amlodipine 5 Mg Tab PO 5 mg DAILY SHASHI Administration Arformoterol Tartrate 15 mcg 02/14/22 08:00 02/18/22 07:51 Arformoterol 15 Mcg/2 Ml Nebu IH 15 mcg Q12HRT SHASHI Administration Aspirin 81 mg 02/14/22 10:00 02/18/22 10:10 Aspirin 81 Mg Tab Chew PO 81 mg QDAY SHASHI Administration Atorvastatin Calcium 20 mg 02/13/22 22:00 02/17/22 21:29 Atorvastatin 20 Mg Tab PO 20 mg QHS SHASHI Administration Benzonatate 100 mg 02/13/22 20:52 02/17/22 09:19 Benzonatate 100 Mg Cap PO 100 mg Q8HR PRN Administration Cough Budesonide 1 mg 02/14/22 08:00 02/18/22 07:50 Budesonide 0.5 Mg/2 Ml Nebu IH 1 mg Q12HRT SHASHI Administration Carisoprodol 350 mg 02/14/22 08:00 02/18/22 10:11 Carisoprodol 350 Mg Tab PO 350 mg TID SHASHI Administration Cetirizine HCl 10 mg 02/14/22 10:00 02/18/22 10:11 Cetirizine 10 Mg Tab PO 10 mg QDAY SHASHI Administration Cyclobenzaprine HCl 10 mg 02/13/22 20:52 Cyclobenzaprine 10 Mg Tab PO Q8H PRN Muscle Spasm Escitalopram Oxalate 5 mg 02/14/22 10:00 02/18/22 10:10 Escitalopram 10 Mg Tab PO 5 mg QDAY SHASHI Administration Mirtazapine 30 mg 02/18/22 22:00 Mirtazapine 30 Mg Tab PO QHS SHASHI
[2022-02-18] MEDS ORDERED: MIRTAZAPINE 30 MG TAB PO SCH (22:00)
[2022-02-18 22:52] VITALS: BP 124/75
[2022-02-19] MEDS: CARISOPRODOL 350 MG TAB PO SCH (08:50)
[2022-02-19] MEDS: ARFORMOTEROL 15 MCG/2 ML NEBU IH SCH (09:30)
[2022-02-19] MEDS: BUDESONIDE 0.5 MG/2 ML NEBU IH SCH (09:30)
--- NOTE | 2022-02-19 10:03 | Progress Note ---
Subjective Date of service: 02/19/22 Subjective Comment: 02/19/22:The patient was seen this morning. he is complaining of hip pain. 02/18/22: The patient was seen this morning. The patient reports having difficulty with sleep. He continues to endorse depression with suicidal ideation. He continues to reports auditory hallucinations. 02/17/22:The patient was seen this morning. He was angry about discontinuing his Seroquel; the patient agreed on starting Invega sustenna and was educated about polypharmacy. He continues to endorse depression and suicidal ideation. He continues to reports auditory hallucinations. 02/16/22: The patient was seen this morning. The patient endorses suicidal ideation with a plan " to shoot myself." he reports having auditory hallucinations " voices telling me to kill myself." 02/15/22: The patient was seen this morning. He reports that he is not doing well. the patient endorses suicidal ideation with a plan "Not to shoot myself." he reports having auditory hallucinations " voices telling me to kill myself.":" REVIEW OF SYSTEMS Constitutional: Negative for weight loss ENT: Negative for stridor Respiratory: Negative for cough or hemoptysis All other systems reviewed and are negative MENTAL STATUS EXAMINATION General Appearance and Behavior: Age appropriate, good hygiene, wearing appropriate clothes. calm, cooperative Cooperation: cooperative Psychomotor Behavior: Psychomotor normal Mood: depressed Affect and affective range: congruent with stated mood Thought Process: goal directed Thought Content: hallucinations, SI Speech: Normal volume, Regular rate and rhythm Suicidal Ideation: yes Homicidal Ideation: Denies Hallucinations: Auditory Delusions: none elicited Impulse Control: impaired Insight and Judgment: Limited Memory: limited Attention: Attentive Orientation: alert and oriented Assessment and Plan (1) Schizophrenia (2) Cocaine Dependence Treatment Plan Patient admitted for inpatient psychiatric evaluation, medication adjustment and close monitoring The patient's behavior, mood, sleep and appetite will be closely monitored. Patient enrolled in individual and group therapeutic sessions and encouraged to attend. Patient provided with a safe and structured environment. Patient's physical health needs will be addressed by the Hospitalist. Hospitalist Consulted Labs including CBC, CMP, Lipid profile and Hemoglobin A1C levels ordered for baseline reference Social Assessment will be completed and the Roll Tender will work with patient and family to ensure a suitable and safe disposition Medication adjustment will be made as clinically indicated Continue Lexapro 5mg po daily Continue home meds Usual Wellness Sikhism/Preservation: - Start Trazodone 50 mg po QHS & 50 mg po QHS PRN between 10 PM & 2 AM for insomnia - Start Melatonin 5 mg po QHS to promote circadian rhythm The patient agreed on the treatment plan, understood the risk, benefit, alternative treatment, potential consequence of no treatment, and gave informed consent. Estimated days:4 Post hospital care: primary care provider, psychiatric provider Case staffed with Dr. Bustillo Legal Status: Voluntary Reaction to Hospitalization: Accepting Medications and Allergies Medications and Allergies Allergies Allergy/AdvReac Type Severity Reaction Status Date / Time prochlorperazine Allergy Rash Verified 10/18/21 09:09 [From Compazine] prochlorperazine edisylate Allergy Swelling Verified 10/18/21 09:09 [From Compazine] prochlorperazine maleate Allergy Swelling Verified 10/18/21 09:09 [From Compazine] tramadol Allergy Swelling Verified 10/18/21 09:09 Home Medications Medication Instructions Recorded Confirmed Last Taken Type Citalopram [celeXA] 40 mg PO QDAY 09/07/15 11/20/15 09/07/[address] [[place]iken] 75 mg PO QDAY 09/07/15 11/20/15 09/07/15 History Ipratropium (Nf) [Atrovent HFA 2 puff IH Q6HR PRN 09/07/15 11/20/15 09/07/15 History 17MCG/PUFF] Meloxicam 15 mg PO QDAY 09/07/15 11/20/15 09/07/15 History Mirtazapine [Remeron] 15 mg PO QDAY 09/07/15 11/20/15 09/07/15 History cloNIDine [Catapres] 0.2 mg PO BID 09/07/15 11/20/15 09/07/15 History metFORMIN [Glucophage] 500 mg PO BID 09/07/15 11/20/15 09/07/15 History methOCARBAMOL [Robaxin TAB] 500 mg PO QID 09/07/15 11/20/15 09/07/15 History raNITIdine HCl [Zantac] 150 mg PO QDAY 09/07/15 11/20/15 09/07/15 History Aspirin [Aspirin BABY CHEW TAB] 81 mg PO QDAY 11/20/15 11/20/15 Unknown History Esomeprazole Magnesium [NexIUM] 40 mg PO BID 11/20/15 11/20/15 Unknown History Ibuprofen [Motrin] 800 mg PO Q8HR PRN 11/20/15 11/20/15 Unknown History Nitroglycerin [Nitrostat] 0.4 mg SL Q5M PRN 11/20/15 11/20/15 Unknown History Oxycodone HCl/Acetaminophen 1 each PO Q6HR PRN 11/20/15 11/20/15 Unknown History [Percocet 10/325 mg] carisoprodoL [Soma] 350 mg PO TID 11/20/15 11/20/15 Unknown History diphenhydrAMINE [Benadryl CAP] 50 mg PO Q8HR PRN 11/20/15 11/20/15 Unknown History lisinopriL [Zestril TAB] 5 mg PO QDAY #30 tablet 11/22/15 Unknown Rx Azithromycin 250 mg PO DAILY #6 tablet 11/10/18 Unknown Rx predniSONE [Deltasone] 40 mg PO QDAY 4 Days #8 tab 11/10/18 Unknown Rx Albuterol Sulfate [Ventolin HFA] 2 puff IH Q4H PRN #1 hfa.aer.ad 02/06/19 Unknown Rx Benzonatate [Tessalon Perles] 100 mg PO Q8HR PRN #30 capsule 02/06/19 Unknown Rx predniSONE [predniSONE 10mg (21 10 mg PO QDAY #1 tab.ds.pk 02/06/19 Unknown Rx tabs)] Budesonide/Formoterol Fumarate 10.2 gm IH BID #1 hfa.aer.ad 02/15/19 Unknown Rx [Symbicort 80-4.5 Mcg Inhaler] Cetirizine HCl [ZyrTEC 10mg cap] 10 mg PO QDAY #30 capsule 02/15/19 Unknown Rx Ondansetron [Zofran Odt] 4 mg PO Q8HR #12 tab.rapdis 02/15/19 Unknown Rx Ibuprofen [Motrin 800 MG tab] 800 mg PO Q8HR PRN #14 tablet 01/01/20 Unknown Rx Cyclobenzaprine [Flexeril 10 MG 10 mg PO Q8H PRN #21 01/12/20 Unknown Rx TAB] Ibuprofen [Motrin 600 MG tab] 600 mg PO Q8H PRN #24 tablet 01/12/20 Unknown Rx Menthol/Camphor [[place] 1 applic TP BID #18 oint...g. 07/17/20 Unknown Rx Ointment] Naproxen [EC-Naprosyn] 500 mg PO BID PRN #14 tablet. 07/17/20 Unknown Rx Azithromycin [Zithromax Z-PAVITHRA] 0 mg PO DAILY #1 pack 07/22/20 Unknown Rx Benzonatate [Tessalon Perles] 100 mg PO Q8HR PRN #20 capsule 07/22/20 Unknown Rx Ibuprofen [Motrin 600 MG tab] 600 mg PO Q8H PRN #30 tablet 10/29/20 Unknown Rx Amlodipine Besylate [Norvasc] 5 mg PO DAILY 09/27/21 09/27/21 Unknown History AtorvaSTATin [Lipitor] 20 mg PO QHS 09/27/21 09/27/21 Unknown History Fluticasone Propion/Salmeterol 1 inhalation INNOSTRIL BID 09/27/21 09/27/21 Unknown History [Fluticasone-Salmeterol 500-50] Meloxicam [Mobic] 7.5 mg PO QDAY 09/27/21 09/27/21 Unknown History metFORMIN [Glucophage] 500 mg PO BID 09/27/21 09/27/21 Unknown History Arformoterol Nebu [Brovana Nebu] 15 mcg IH Q12HRT ml 10/04/21 Unknown Rx Budesonide [Pulmicort Respules] 1 mg IH Q12HRT nebu 10/04/21 Unknown Rx Ibuprofen [Motrin 800 MG tab] 800 mg PO Q8H PRN tablet 10/04/21 Unknown Rx Benzonatate [Tessalon Perles] 100 mg PO Q8HR PRN capsule 02/18/22 Unknown Rx Divalproex [Raissa Aiken] 125 mg PO BID 30 Days #60 tablet 02/18/22 Unknown Rx Escitalopram [Lexapro] 10 mg PO QDAY 30 Days #30 tablet 02/18/22 Unknown Rx Gabapentin 300 mg PO BID 30 Days #60 capsule 02/18/22 Unknown Rx Hydroxyzine HCl [hydrOXYzine] 50 mg PO QDAY 30 Days #30 02/18/22 Unknown Rx Mirtazapine [Remeron 30mg TAB] 30 mg PO QHS 30 Days #30 tablet 02/18/22 Unknown Rx Active Meds: Active Medications Amlodipine Besylate (Amlodipine 5 Mg Tab) 5 mg PO DAILY COUNT INCLUDES THE [facility] Last Admin: 02/18/22 10:10 Dose: 5 mg Arformoterol Tartrate (Arformoterol 15 Mcg/2 Ml Nebu) 15 mcg IH Q12HRT COUNT INCLUDES THE [facility] Last Admin: 02/19/22 09:30 Dose: 15 mcg Aspirin (Aspirin 81 Mg Tab Chew) 81 mg PO QDAY COUNT INCLUDES THE [facility] Last Admin: 02/18/22 10:10 Dose: 81 mg Atorvastatin Calcium (Atorvastatin 20 Mg Tab) 20 mg PO QHS COUNT INCLUDES THE [facility] Last Admin: 02/18/22 21:19 Dose: 20 mg Benzonatate (Benzonatate 100 Mg Cap) 100 mg PO Q8HR PRN PRN Reason: Cough Last Admin: 02/17/22 09:19 Dose: 100 mg Budesonide (Budesonide 0.5 Mg/2 Ml Nebu) 1 mg IH Q12HRT COUNT INCLUDES THE [facility] Last Admin: 02/19/22 09:30 Dose: 1 mg Carisoprodol (Carisoprodol 350 Mg Tab) 350 mg PO TID COUNT INCLUDES THE [facility] Last Admin: 02/19/22 08:50 Dose: 350 mg Cetirizine HCl (Cetirizine 10 Mg Tab) 10 mg PO QDAY COUNT INCLUDES THE [facility] Last Admin: 02/18/22 10:11 Dose: 10 mg Cyclobenzaprine HCl (Cyclobenzaprine 10 Mg Tab) 10 mg PO Q8H PRN PRN Reason: Muscle Spasm Escitalopram Oxalate (Escitalopram 10 Mg Tab) 5 mg PO QDAY COUNT INCLUDES THE [facility] Last Admin: 02/18/22 10:10 Dose: 5 mg Mirtazapine (Mirtazapine 30 Mg Tab) 30 mg PO QHS COUNT INCLUDES THE [facility] Last Admin: 02/18/22 21:19 Dose: 30 mg Results - Results Labs/Vitals: Laboratory Last Values WBC 4.2 K/mm3 (4.5-11.0) L 02/13/22 23:31 RBC 3.59 M/mm3 (3.65-5.03) L 02/13/22 23:31 Hgb 10.7 gm/dl (11.8-15.2) L 02/13/22 23:31 Hct 33.5 % (35.5-45.6) L 02/13/22 23: MCV 93 fl (84-94) 02/13/22 23: MCH 30 pg (28-32) 02/13/22: MCHC 32 % (32-34) 02/13/22 23: RDW 22.2 % (13.2-15.2) H 02/13/22: Plt Count 241 K/mm3 (140-440) 02/13/22: Lymph % (Auto) 28.1 % (13.4-35.0) 02/13/22: [place] % (Auto) 10.6 % (0.0-7.3) H 02/13/22: Eos % (Auto) 2.6 % (0.0-4.3) 02/13/22: Baso % (Auto) 0.8 % (0.0-1.8) 02/13/22: Lymph # (Auto) 1.2 K/mm3 (1.2-5.4) 02/13/22: [place] # (Auto) 0.4 K/mm3 (0.0-0.8) 02/13/22: Eos # (Auto) 0.1 K/mm3 (0.0-0.4) 02/13/22: Baso # (Auto) 0.0 K/mm3 (0.0-0.1) 02/13/22 23: Seg Neutrophils % 57.9 % (40.0-70.0) 02/13/22: Seg Neutrophils # 2.4 K/mm3 (1.8-7.7) 02/13/22 23: Sodium 138 mmol/L (137-145) 02/13/22: Potassium 4.1 mmol/L (3.6-5.0) 02/13/22: Chloride 105.8 mmol/L (98-107) 02/13/22 23: Carbon Dioxide 18 mmol/L (22-30) L 02/13/22 23: Anion Gap 18 mmol/L 02/13/22 23: BUN 22 mg/dL (9-20) H 02/13/22: Creatinine 0.6 mg/dL (0.8-1.3) L 02/13/22 23:31 Estimated GFR > 60 ml/min 02/13/22 23:31 BUN/Creatinine Ratio 37 % 02/13/22 23:31 Glucose 103 mg/dL (75-100) H 02/13/22 23:31 POC Glucose 101 mg/dL (70-105) 02/18/22 06:58 Hemoglobin A1c 5.4 % (4-6) 02/13/22 23:31 Calcium 8.2 mg/dL (8.4-10.2) L 02/13/22 23:31 Total Bilirubin 0.50 mg/dL (0.1-1.2) 02/13/22 23:31 AST 21 units/L (5-40) 02/13/22 23:31 ALT 16 units/L (7-56) 02/13/22 23:31 Alkaline Phosphatase 80 units/L (35-129) 02/13/22 23:31 Total Protein 6.5 g/dL (6.3-8.2) 02/13/22 23:31 Albumin 3.5 g/dL (3.9-5) L 02/13/22 23:31 Albumin/Globulin Ratio 1.2 % 02/13/22 23:31 Triglycerides 47 mg/dL (2-149) 02/13/22 23:31 Cholesterol 106 mg/dL (50-199) 02/13/22 23:31 LDL Cholesterol Direct 62 mg/dL (50-130) 02/13/22 23:31 HDL Cholesterol 37 mg/dL (40-59) L 02/13/22 23:31 Cholesterol/HDL Ratio 2.86 % 02/13/22 23:31 TSH 0.115 mlU/mL (0.270-4.200) L 02/13/22 23:31 Last Vital Signs Temp 98.6 F 02/18/22 19:26 Pulse 93 H 02/18/22 20:28 Resp 16 02/18/22 20:28 BP 124/75 02/18/22 19:26 Pulse Ox 99 02/18/22 19:26
[2022-02-19] MEDS: ASPIRIN 81 MG TAB CHEW PO SCH (10:19)
[2022-02-19] MEDS: CETIRIZINE 10 MG TAB PO SCH (10:19)
[2022-02-19] MEDS: ESCITALOPRAM 10 MG TAB PO SCH (10:19)
[2022-02-19] MEDS: amLODIPine 5 MG TAB PO SCH (10:19)
--- NOTE | 2022-02-19 11:07 | Progress Note ---
Assessment and Plan - Patient Problems (1) Cerebral atherosclerosis Current Visit: Yes Status: Acute (2) Malnutrition Current Visit: Yes Status: Acute Qualifiers: Protein-calorie malnutrition severity: moderate (3) Psychosis Current Visit: Yes Status: Acute Qualifiers: Schizophrenia type: unspecified (4) Schizophrenia Current Visit: Yes Status: Acute Qualifiers: Schizophrenia type: unspecified Qualified Code(s): F20.9 - Schizophrenia, unspecified (5) Vascular dementia with behavioral disturbance Current Visit: Yes Status: Acute (6) Advance care planning Current Visit: Yes Status: Acute Hospitalist Physical - Constitutional Vitals: Temp Pulse Resp BP Pulse Ox 98.6 F 95 H 16 124/75 99 02/18/22 19:26 02/19/22 09:40 02/19/22 09:40 02/18/22 19:26 02/18/22 19:26 General appearance: Present: no acute distress Results - Labs CBC & Chem 7: 02/13/22 23:31 02/13/22 23:31 Labs: Laboratory Last Values WBC 4.2 K/mm3 (4.5-11.0) L 02/13/22 23:31 RBC 3.59 M/mm3 (3.65-5.03) L 02/13/22 23:31 Hgb 10.7 gm/dl (11.8-15.2) L 02/13/22 23:31 Hct 33.5 % (35.5-45.6) L 02/13/22 23:31 MCV 93 fl (84-94) 02/13/22 23:31 MCH 30 pg (28-32) 02/13/22 23:31 MCHC 32 % (32-34) 02/13/22 23:31 RDW 22.2 % (13.2-15.2) H 02/13/22 23:31 Plt Count 241 K/mm3 (140-440) 02/13/22 23:31 Lymph % (Auto) 28.1 % (13.4-35.0) 02/13/22 23:31 [place] % (Auto) 10.6 % (0.0-7.3) H 02/13/22 23:31 Eos % (Auto) 2.6 % (0.0-4.3) 02/13/22 23:31 Baso % (Auto) 0.8 % (0.0-1.8) 02/13/22 23:31 Lymph # (Auto) 1.2 K/mm3 (1.2-5.4) 02/13/22 23:31 [place] # (Auto) 0.4 K/mm3 (0.0-0.8) 02/13/22 23:31 Eos # (Auto) 0.1 K/mm3 (0.0-0.4) 02/13/22 23:31 Baso # (Auto) 0.0 K/mm3 (0.0-0.1) 02/13/22 23:31 Seg Neutrophils % 57.9 % (40.0-70.0) 02/13/22 23: Seg Neutrophils # 2.4 K/mm3 (1.8-7.7) 02/13/22 23:31 Sodium 138 mmol/L (137-145) 02/13/22 23:31 Potassium 4.1 mmol/L (3.6-5.0) 02/13/22 23:31 Chloride 105.8 mmol/L (98-107) 02/13/22 23:31 Carbon Dioxide 18 mmol/L (22-30) L 02/13/22 23:31 Anion Gap 18 mmol/L 02/13/22 23:31 BUN 22 mg/dL (9-20) H 02/13/22 23:31 Creatinine 0.6 mg/dL (0.8-1.3) L 02/13/22 23:31 Estimated GFR > 60 ml/min 02/13/22 23:31 BUN/Creatinine Ratio 37 % 02/13/22 23:31 Glucose 103 mg/dL (75-100) H 02/13/22 23:31 POC Glucose 101 mg/dL (70-105) 02/18/22 06:58 Hemoglobin A1c 5.4 % (4-6) 02/13/22 23:31 Calcium 8.2 mg/dL (8.4-10.2) L 02/13/22 23:31 Total Bilirubin 0.50 mg/dL (0.1-1.2) 02/13/22 23:31 AST 21 units/L (5-40) 02/13/22 23:31 ALT 16 units/L (7-56) 02/13/22 23:31 Alkaline Phosphatase 80 units/L (35-129) 02/13/22 23:31 Total Protein 6.5 g/dL (6.3-8.2) 02/13/22 23:31 Albumin 3.5 g/dL (3.9-5) L 02/13/22 23:31 Albumin/Globulin Ratio 1.2 % 02/13/22 23:31 Triglycerides 47 mg/dL (2-149) 02/13/22 23:31 Cholesterol 106 mg/dL (50-199) 02/13/22 23:31 LDL Cholesterol Direct 62 mg/dL (50-130) 02/13/22 23:31 HDL Cholesterol 37 mg/dL (40-59) L 02/13/22 23:31 Cholesterol/HDL Ratio 2.86 % 02/13/22 23:31 TSH 0.115 mlU/mL (0.270-4.200) L 02/13/22 23:31 [place]/IV: Voiding Method Toilet Active Medications - Current Medications Current Medications: Generic Name Dose Route Start Last Admin Trade Name Freq PRN Reason Stop Dose Admin Amlodipine Besylate 5 mg 02/14/22 10:00 02/19/22 10:19 Amlodipine 5 Mg Tab PO 5 mg DAILY SHASHI Administration Arformoterol Tartrate 15 mcg 02/14/22 08:00 02/19/22 09:30 Arformoterol 15 Mcg/2 Ml Nebu IH 15 mcg Q12HRT SHASHI Administration Aspirin 81 mg 02/14/22 10:00 02/19/22 10:19 Aspirin 81 Mg Tab Chew PO 81 mg QDAY SHASHI Administration Atorvastatin Calcium 20 mg 02/13/22 22:00 02/18/22 21:19 Atorvastatin 20 Mg Tab PO 20 mg QHS SHASHI Administration Benzonatate 100 mg 02/13/22 20:52 02/17/22 09:19 Benzonatate 100 Mg Cap PO 100 mg Q8HR PRN Administration Cough Budesonide 1 mg 02/14/22 08:00 02/19/22 09:30 Budesonide 0.5 Mg/2 Ml Nebu IH 1 mg Q12HRT SHASHI Administration Carisoprodol 350 mg 02/14/22 08:00 02/19/22 08:50 Carisoprodol 350 Mg Tab PO 350 mg TID SHASHI Administration Cetirizine HCl 10 mg 02/14/22 10:00 02/19/22 10:19 Cetirizine 10 Mg Tab PO 10 mg QDAY SHASHI Administration Cyclobenzaprine HCl 10 mg 02/13/22 20:52 Cyclobenzaprine 10 Mg Tab PO Q8H PRN Muscle Spasm Escitalopram Oxalate 5 mg 02/14/22 10:00 02/19/22 10:19 Escitalopram 10 Mg Tab PO 5 mg QDAY SHASHI Administration Mirtazapine 30 mg 02/18/22 22:00 02/18/22 21:19 Mirtazapine 30 Mg Tab PO 30 mg QHS SHASHI Administration
== END 2022-02-19 14:00 | disposition home or self-care (01) | DRG 885 ==
LOC: 3A 15:10 → UNDOADMIN 15:10 → 5A 18:09
PROVIDERS: ADMIT Psychiatry & Neurology Psychiatry; ATTEND Psychiatry & Neurology Psychiatry
DX: F20.9 Schizophrenia, unspecified (principal); F14.20 Cocaine dependence, uncomplicated; F01.51 Vascular dementia, unspecified severity, with behavioral disturbance; Z68.1 Body mass index [BMI] 19.9 or less, adult; E44.0 Moderate protein-calorie malnutrition; R45.851 Suicidal ideations; I67.2 Cerebral atherosclerosis; I10 Essential (primary) hypertension; Z88.5 Allergy status to narcotic agent; Z88.8 Allergy status to other drugs, medicaments and biological substances; Z82.49 Family history of ischemic heart disease and other diseases of the circulatory system; Z79.899 Other long term (current) drug therapy; Z79.82 Long term (current) use of aspirin; Z79.84 Long term (current) use of oral hypoglycemic drugs
CPT/HCPCS: 36415; 80048; 80053; 80061; 80307; 80320; 81001; 82962; 83036; 84443; 85025; 94640; G0378; G0480; J2426; U0003